=== PATIENT | female | born 1965 | race American Indian/Alaskan Native ===

== ENCOUNTER 2017-05-05 17:57 | Emergency (ER) | payer MEDICAID ==
[~2017-05-05] VITALS: Ht 157.5 cm; Wt 94.0 kg
[~2017-05-05 17:57] MED LIST: CARV3.1289 PO; DIPH-423 PO; DOCU100C40 PO; LISI-600 PO; METF500T PO; SYRI-641
[2017-05-05] MEDS ORDERED: normal saline 1000ml 1,000 ML IV ONE (18:40)
[2017-05-05] MEDS ORDERED: insulin regular, human 10 units/0.1 ml syringe SQ ONE (18:40)
[2017-05-05] MEDS ORDERED: ondansetron/PF 4mg/2ml inj IV ONE (18:45)
[2017-05-05 19:04] LABS: BASOPHILS # (AUTO) 0.1 X10'3 (0-0.2); BASOPHILS % (AUTO) 0.5 % (0-1); EOSINOPHILS # (AUTO) 0.3 X10'3 (0-0.9); EOSINOPHILS % (AUTO) 2.3 % (0-6); HEMATOCRIT 45.4 % (35.0-45.0); HEMOGLOBIN 14.8 g/dl (12.0-16.0); LYMPHOCYTES # (AUTO) 2.5 X10'3 (1.1-4.8); MEAN CORPUSCULAR HEMOGLOBIN 26.8 PG (27.0-31.0); MEAN CORPUSCULAR HGB CONC 32.5 % (33.0-36.5); MEAN CORPUSCULAR VOLUME 82.6 FL (78-98); MEAN PLATELET VOLUME 8.9 FL (7.4-10.4); MONOCYTES # (AUTO) 0.6 X10'3 (0-0.9); NEUTROPHILS # (AUTO) 8.5 X10'3 (1.8-7.7); NEUTROPHILS % (AUTO) 71.2 % (42-75); PLATELET COUNT 301 X10'3 (140-440); RED CELL DISTRIBUTION WIDTH 13.6 % (11.5-14.5); WHITE BLOOD COUNT 11.9 X10'3 (4.5-11.0)
[2017-05-05 19:27] LABS: ALANINE AMINOTRANSFERASE 37 U/L (12-78); ALBUMIN 2.8 G/DL (3.4-5.0); ALBUMIN/GLOBULIN RATIO 0.5 (1.1-1.5); ALKALINE PHOSPHATASE 131 IU/L (46-116); ANION GAP 8 (8-16); ASPARTATE AMINO TRANSFERASE 22 U/L (10-37); BILIRUBIN,TOTAL 0.2 MG/DL (0.1-1.0); BLOOD UREA NITROGEN 21 MG/DL (7-18); CALCIUM 9.1 MG/DL (8.5-10.1); CHLORIDE 101 MMOL/L (99-107); GLUCOSE 400 MG/DL (70-104); LIPASE 113 U/L (73-393); POTASSIUM 3.9 MMOL/L (3.5-5.1); SODIUM 136 MMOL/L (135-145); TOTAL CARBON DIOXIDE 27.3 MMOL/L (24-32); TOTAL PROTEIN 7.9 G/DL (6.4-8.2); TROPONIN I < 0.04 NG/ML (0.0-0.05); eGFR 58 ML/MIN
[2017-05-05] MEDS ORDERED: INSU100V30 SQ ×2 (19:34→19:37)
[2017-05-05] MEDS ORDERED: ibuprofen tablet 400 MG TABLET PO ONE (19:40)
[2017-05-05] MEDS ORDERED: CLIN150C2 PO (20:00)
[2017-05-05 20:03] LABS: COLOR,URINE YELLOW (Yellow); GLUCOSE, URINE >=1000 mg/dl (Neg); KETONES,URINE NEGATIVE (Neg); LEUKOCYTE ESTERASE ,URINE TRACE (Neg); NITRITES, URINE NEGATIVE (Neg); OCCULT BLOOD,URINE LARGE (Neg); PH,URINE 5.5 (4.8-8.0); PROTEIN,URINE 100 mg/dl (Neg); UROBILINOGEN,URINE 0.2 E.U/dL (0.2-1.0)
[2017-05-05 20:04] LABS: UA COLLECTION TYPE CLN CATCH MIDSTREAM
[2017-05-05 20:05] LABS: CLARITY,URINE SLIGHTLY CLOUDY (Clear)
[2017-05-05 20:06] LABS: BACTERIA,URINE FEW /HPF (Neg); SQUAMOUS EPITHELIAL CELL,UR MODERATE /LPF (FEW); WBC,URINE 30-50 /HPF (0-4)
[2017-05-05 20:10] LABS: URINE AMPHETAMINE SCREEN POSITIVE (Neg); URINE BARBITUATE SCREEN NEGATIVE (Neg); URINE BENZODIAZEPINES SCREEN NEGATIVE (Neg); URINE CANNABINOID SCREEN NEGATIVE (Neg); URINE COCAINE SCREEN NEGATIVE (Neg); URINE METHADONE SCREEN NEGATIVE (Neg); URINE OPIATE SCREEN NEGATIVE (Neg); URINE PHENCYCLIDINE SCREEN NEGATIVE (Neg)
[2017-05-05 20:21] VITALS: BP 162/63
== END 2017-05-05 20:24 | disposition home or self-care (01) ==
LOC: ER 17:57
DX: E10.65 Type 1 diabetes mellitus with hyperglycemia (principal); Z79.4 Long term (current) use of insulin; L03.116 Cellulitis of left lower limb; Z59.0 Homelessness; F15.10 Other stimulant abuse, uncomplicated; G89.29 Other chronic pain; F32.9 Major depressive disorder, single episode, unspecified; Z88.2 Allergy status to sulfonamides
CPT/HCPCS: 36415; 71045; 80053; 80305; 81001; 83690; 84484; 85025; 87088; 93005; 96361; 96372; 96374; 99285; J1815; J2405

== ENCOUNTER 2017-06-03 16:23 | Emergency (ER) | payer MEDICAID ==
[~2017-06-03] VITALS: Ht 157.5 cm; Wt 89.6 kg
[~2017-06-03 16:23] MED LIST changes: +CLIN150C2 PO; +INSU100V30 SQ
[2017-06-03 16:28] VITALS: BP 145/65
[2017-06-03 17:11] LABS: CLARITY,URINE CLEAR (Clear); COLOR,URINE YELLOW (Yellow); GLUCOSE, URINE >=1000 mg/dl (Neg); KETONES,URINE NEGATIVE (Neg); LEUKOCYTE ESTERASE ,URINE NEGATIVE (Neg); NITRITES, URINE NEGATIVE (Neg); OCCULT BLOOD,URINE MODERATE (Neg); PH,URINE 5.5 (4.8-8.0); PROTEIN,URINE 100 mg/dl (Neg); UROBILINOGEN,URINE 0.2 E.U/dL (0.2-1.0)
[2017-06-03 17:12] LABS: UA COLLECTION TYPE CLN CATCH MIDSTREAM
[2017-06-03 17:20] LABS: BACTERIA,URINE 1+ /HPF (Neg); RBC,URINE 0-2 /HPF (0-2); SQUAMOUS EPITHELIAL CELL,UR MODERATE /LPF (FEW); WBC,URINE 30-50 /HPF (0-4)
[2017-06-03] MEDS ORDERED: NITR100C6 PO (17:54)
[2017-06-03] MEDS ORDERED: fluconazole 100mg tablet PO ONE (17:55)
== END 2017-06-03 18:14 | disposition home or self-care (01) ==
LOC: ER 16:24
DX: N39.0 Urinary tract infection, site not specified (principal); B37.3 Candidiasis of vulva and vagina; G89.29 Other chronic pain; J45.909 Unspecified asthma, uncomplicated; E11.9 Type 2 diabetes mellitus without complications; M19.90 Unspecified osteoarthritis, unspecified site; F15.10 Other stimulant abuse, uncomplicated; Z59.0 Homelessness; Z88.8 Allergy status to other drugs, medicaments and biological substances; Z88.2 Allergy status to sulfonamides; Z79.4 Long term (current) use of insulin; Z79.84 Long term (current) use of oral hypoglycemic drugs; Z79.899 Other long term (current) drug therapy
CPT/HCPCS: 81001; 87088; 99284

== ENCOUNTER → 2017-08-02 | Outpatient (CLI) | payer MEDICAID ==
[~2017-08-02] MED LIST changes: -CLIN150C2 PO; +NITR100C6 PO
== END ==
LOC: VAS 08:54
PROVIDERS: ATTEND Physician Assistant Medical
DX: M79.651 Pain in right thigh (principal)
CPT/HCPCS: 93971

== ENCOUNTER 2017-10-02 17:05 | Inpatient (IN) | payer MEDICAID ==
[~2017-10-02] VITALS: Ht 157.5 cm; Wt 84.0 kg
[2017-10-02] MEDS: ringers solution, lacted 1,000 ML IV SCH (01:45)
[~2017-10-02 17:05] MED LIST changes: +ONDA8TAB13 PO; +PANT-47 PO
[2017-10-02 17:34] LABS: BASOPHILS % (AUTO) 0 % (0-1); EOSINOPHILS # (AUTO) 0.1 X10'3 (0-0.9); EOSINOPHILS % (AUTO) 0.6 % (0-6); HEMATOCRIT 47.9 % (35.0-45.0); HEMOGLOBIN 15.7 g/dl (12.0-16.0); LYMPHOCYTES # (AUTO) 1.8 X10'3 (1.1-4.8); LYMPHOCYTES % (AUTO) 11.4 % (21-51); MEAN CORPUSCULAR HEMOGLOBIN 26.6 PG (27.0-31.0); MEAN CORPUSCULAR HGB CONC 32.8 % (33.0-36.5); MEAN CORPUSCULAR VOLUME 81.2 FL (78-98); MEAN PLATELET VOLUME 8.8 FL (7.4-10.4); MONOCYTES # (AUTO) 0.6 X10'3 (0-0.9); NEUTROPHILS # (AUTO) 13.5 X10'3 (1.8-7.7); PLATELET COUNT 370 X10'3 (140-440); RED CELL DISTRIBUTION WIDTH 14.9 % (11.5-14.5); WHITE BLOOD COUNT 16.1 X10'3 (4.5-11.0)
[2017-10-02 17:40] LABS: PROTHROMBIN TIME 10.1 SECONDS (9.0-12.0)
[2017-10-02 17:46] LABS: ALANINE AMINOTRANSFERASE 18 U/L (12-78); ALBUMIN 2.8 G/DL (3.4-5.0); ALBUMIN/GLOBULIN RATIO 0.5 (1.1-1.5); ALKALINE PHOSPHATASE 104 IU/L (46-116); ANION GAP 9 (8-16); ASPARTATE AMINO TRANSFERASE 13 U/L (10-37); BILIRUBIN,TOTAL 0.4 MG/DL (0.1-1.0); BLOOD UREA NITROGEN 28 MG/DL (7-18); BUN/CREATININE RATIO 25.2 (6.6-38.0); CALCIUM 8.6 MG/DL (8.5-10.1); CHLORIDE 101 MMOL/L (99-107); CREATININE 1.11 MG/DL (0.40-0.90); GLUCOSE 310 MG/DL (70-104); POTASSIUM 4.1 MMOL/L (3.5-5.1); SODIUM 136 MMOL/L (135-145); TOTAL CARBON DIOXIDE 25.9 MMOL/L (24-32); TOTAL PROTEIN 7.9 G/DL (6.4-8.2); eGFR 51 ML/MIN
[2017-10-02] MEDS ORDERED: MORPHINE 2MG in 2ml NS syringe IV PRN (19:35)
[2017-10-02] MEDS ORDERED: ondansetron/PF 4mg/2ml inj IV ONE (19:35)
[2017-10-02] MEDS ORDERED: morphine 4 MG/ML inj SYRINge IV PRN ×3 (19:35→21:45)
[2017-10-02] MEDS ORDERED: normal saline 1000ML IV soln IVB ONE (19:35)
[2017-10-02 20:17] LABS: CLARITY,URINE CLEAR (Clear); COLOR,URINE YELLOW (Yellow); GLUCOSE, URINE 250 mg/dl (Neg); KETONES,URINE TRACE mg/dl (Neg); LEUKOCYTE ESTERASE ,URINE NEGATIVE (Neg); NITRITES, URINE NEGATIVE (Neg); OCCULT BLOOD,URINE NEGATIVE (Neg); PH,URINE 5.5 (4.8-8.0); PROTEIN,URINE >=300 mg/dl (Neg)
[2017-10-02 20:20] LABS: UA COLLECTION TYPE STRAIGHT CATH
[2017-10-02 20:26] LABS: BACTERIA,URINE 2+ /HPF (Neg); MUCUS STRANDS MODERATE /LPF (Neg); RBC,URINE 0-2 /HPF (0-2); SQUAMOUS EPITHELIAL CELL,UR NONE SEEN /LPF (FEW)
[2017-10-02 20:27] LABS: AMORPHOUS URATES 2+; FINE GRANULAR CAST 0-3 /LPF (NEGATIVE); HYALINE CASTS 0-3 /LPF (NEGATIVE)
[2017-10-02] MEDS ORDERED: PANT40TA4 PO (21:09)
[2017-10-02] MEDS ORDERED: piperacillin/tazo 3.375gm/50ml 50 ML IV ONE (21:15)
[2017-10-02] MEDS ORDERED: normal saline 1000ml 1,000 ML IV SCH (21:22)
[2017-10-02] MEDS ORDERED: MESSAGE TO PHARMACY PO ONE (21:25)
[2017-10-02] MEDS ORDERED: dextrose ORAL solution 15 GM/59 ML bottle PO PRN ×2 (21:25)
[2017-10-02] MEDS ORDERED: ondansetron/PF 4mg/2ml inj IV PRN ×2 (21:25→21:45)
[2017-10-02] MEDS ORDERED: glucagon, human recombinant 1mg kit SUBCUT PRN (21:25)
[2017-10-02] MEDS ORDERED: dextrose 50%-water 50ml dispensing syringe IV PRN ×2 (21:25)
[2017-10-02] MEDS ORDERED: midazolam 2 mg/2 ml injection ONE (21:34)
[2017-10-02] MEDS ORDERED: fentaNYL/PF 50MCG/1 ML 2ML syringe ONE (21:34)
[2017-10-02] MEDS ORDERED: proCHLORperazine 10 MG/2 ml inj IV PRN (21:45)
[2017-10-02] MEDS ORDERED: meperidine/PF 25mg/ml syringe IV PRN ×3 (21:45)
[2017-10-02] MEDS ORDERED: sevoflurane 250ml liquid IH ONE (21:56)
[2017-10-02] MEDS ORDERED: insulin regular, human vial - multi-dose ONE (22:45)
[2017-10-02] MEDS ORDERED: LIDOcaine 2% (20mg/ml) 5ml vial ONE (22:49)
[2017-10-02] MEDS ORDERED: ondansetron/PF 4mg/2ml inj ONE (22:49)
[2017-10-02] MEDS ORDERED: succinylcholine 20mg/ml inj IV ONE (22:49)
[2017-10-02] MEDS ORDERED: propofol inj 20 ML IV ONE (22:49)
[2017-10-02] MEDS ORDERED: rocuronium 10mg/ml inj IV ONE (22:49)
[2017-10-02] MEDS ORDERED: neostigmine methylsulfate 1 MG/ML 10ml vial ONE (23:19)
[2017-10-02] MEDS ORDERED: glycopyrrolate 0.2mg/ml inj ONE (23:19)
[2017-10-02] MEDS ORDERED: labetalol 5mg/ml 20ml inj. IV ONE (23:22)
[2017-10-02 23:27] VITALS: BP 146/81
[2017-10-02 23:37] VITALS: BP 166/98
[2017-10-02 23:47] VITALS: BP 178/104
[2017-10-02] MEDS ORDERED: labetalol 20mg/4ml (5mg/ml) syringe IV ONE (23:50)
[2017-10-02 23:57] VITALS: BP 173/104
[2017-10-03] VITALS (17 sets, daily range): BP systolic 125–172; BP diastolic 68–95
[2017-10-03] MEDS: ringers solution, lacted 1,000 ML IV SCH ×5 (00:54→23:49)
[2017-10-03] MEDS ORDERED: piperacillin-tazo 2.25gm/50ml 50 ML IV ONE (02:01)
[2017-10-03] MEDS: piperacillin-tazo 2.25gm/50ml 50 ML IV SCH ×4 (02:07→23:46)
[2017-10-03] MEDS: morphine 4 MG/ML inj SYRINge IV PRN ×6 (04:00→21:49)
[2017-10-03 05:44] LABS: BASOPHILS % (AUTO) 0.2 % (0-1); EOSINOPHILS # (AUTO) 0.1 X10'3 (0-0.9); EOSINOPHILS % (AUTO) 0.9 % (0-6); HEMATOCRIT 40.5 % (35.0-45.0); HEMOGLOBIN 13.3 g/dl (12.0-16.0); LYMPHOCYTES # (AUTO) 1.4 X10'3 (1.1-4.8); LYMPHOCYTES % (AUTO) 10.7 % (21-51); MEAN CORPUSCULAR HEMOGLOBIN 26.7 PG (27.0-31.0); MEAN CORPUSCULAR HGB CONC 32.8 % (33.0-36.5); MEAN CORPUSCULAR VOLUME 81.3 FL (78-98); MEAN PLATELET VOLUME 9.1 FL (7.4-10.4); MONOCYTES # (AUTO) 0.8 X10'3 (0-0.9); MONOCYTES % (AUTO) 6.5 % (2-12); NEUTROPHILS # (AUTO) 10.6 X10'3 (1.8-7.7); NEUTROPHILS % (AUTO) 81.7 % (42-75); PLATELET COUNT 268 X10'3 (140-440); RED BLOOD COUNT 4.98 X10'6 (4.20-5.60); RED CELL DISTRIBUTION WIDTH 15.2 % (11.5-14.5)
[2017-10-03 06:22] LABS: ALANINE AMINOTRANSFERASE 16 U/L (12-78); ALBUMIN 2.1 G/DL (3.4-5.0); ALBUMIN/GLOBULIN RATIO 0.5 (1.1-1.5); ALKALINE PHOSPHATASE 79 IU/L (46-116); ANION GAP 7 (8-16); ASPARTATE AMINO TRANSFERASE 11 U/L (10-37); BILIRUBIN,TOTAL 0.4 MG/DL (0.1-1.0); BLOOD UREA NITROGEN 20 MG/DL (7-18); BUN/CREATININE RATIO 25.3 (6.6-38.0); CALCIUM 7.4 MG/DL (8.5-10.1); CHLORIDE 107 MMOL/L (99-107); CREATININE 0.79 MG/DL (0.40-0.90); GLUCOSE 244 MG/DL (70-104); SODIUM 139 MMOL/L (135-145); TOTAL CARBON DIOXIDE 24.6 MMOL/L (24-32); eGFR 76 ML/MIN
[2017-10-03] MEDS: pantoprazole 40 MG vial IV SCH (07:50)
[2017-10-03] MEDS: heparin, porcine 5000 units/ml vial SQ SCH ×2 (07:52→19:42)
[2017-10-03] MEDS: insulin Lispro (HumaLOG) vial - multi-dose SQ SCH ×3 (08:07→19:45)
[2017-10-03] MEDS ORDERED: INSU100I31 (08:59)
[2017-10-03] MEDS: lactobacillus rhamnosus 10,000 MMU CELLS/CAPSULE PO SCH (19:57)
[2017-10-03] MEDS: insulin glargine (Lantus) pen - multi-dose SQ SCH (21:53)
[2017-10-03] MEDS ORDERED: sevoflurane 250ml liquid IH ONE (21:56)
[2017-10-04 00:10] VITALS: BP 142/75
[2017-10-04] MEDS: morphine 4 MG/ML inj SYRINge IV PRN ×4 (01:44→19:02)
[2017-10-04 04:53] LABS: BASOPHILS # (AUTO) 0.1 X10'3 (0-0.2); BASOPHILS % (AUTO) 0.8 % (0-1); EOSINOPHILS # (AUTO) 0.2 X10'3 (0-0.9); EOSINOPHILS % (AUTO) 1.7 % (0-6); HEMOGLOBIN 12.5 g/dl (12.0-16.0); LYMPHOCYTES # (AUTO) 1.6 X10'3 (1.1-4.8); LYMPHOCYTES % (AUTO) 13.6 % (21-51); MEAN CORPUSCULAR HGB CONC 32.8 % (33.0-36.5); MEAN CORPUSCULAR VOLUME 82.4 FL (78-98); MEAN PLATELET VOLUME 9.2 FL (7.4-10.4); MONOCYTES % (AUTO) 8.8 % (2-12); NEUTROPHILS # (AUTO) 8.7 X10'3 (1.8-7.7); NEUTROPHILS % (AUTO) 75.1 % (42-75); PLATELET COUNT 262 X10'3 (140-440); RED BLOOD COUNT 4.61 X10'6 (4.20-5.60); RED CELL DISTRIBUTION WIDTH 14.4 % (11.5-14.5); WHITE BLOOD COUNT 11.6 X10'3 (4.5-11.0)
[2017-10-04 05:20] LABS: ALANINE AMINOTRANSFERASE 10 U/L (12-78); ALBUMIN 1.9 G/DL (3.4-5.0); ALBUMIN/GLOBULIN RATIO 0.5 (1.1-1.5); ALKALINE PHOSPHATASE 78 IU/L (46-116); ANION GAP 7 (8-16); ASPARTATE AMINO TRANSFERASE 14 U/L (10-37); BILIRUBIN,TOTAL 0.5 MG/DL (0.1-1.0); BLOOD UREA NITROGEN 11 MG/DL (7-18); BUN/CREATININE RATIO 13.9 (6.6-38.0); CALCIUM 7.8 MG/DL (8.5-10.1); CHLORIDE 105 MMOL/L (99-107); CREATININE 0.79 MG/DL (0.40-0.90); GLUCOSE 177 MG/DL (70-104); POTASSIUM 3.7 MMOL/L (3.5-5.1); SODIUM 138 MMOL/L (135-145); TOTAL PROTEIN 6.1 G/DL (6.4-8.2); eGFR 76 ML/MIN
[2017-10-04] MEDS: lactobacillus rhamnosus 10,000 MMU CELLS/CAPSULE PO SCH ×2 (07:18→19:18)
[2017-10-04] MEDS: heparin, porcine 5000 units/ml vial SQ SCH ×2 (07:18→19:18)
[2017-10-04] MEDS: piperacillin-tazo 2.25gm/50ml 50 ML IV SCH ×2 (07:18→15:23)
[2017-10-04] MEDS: pantoprazole 40 MG vial IV SCH (07:18)
[2017-10-04] MEDS: ringers solution, lacted 1,000 ML IV SCH ×4 (07:18→23:09)
[2017-10-04 07:26] VITALS: BP 137/77
[2017-10-04] MEDS: insulin Lispro (HumaLOG) vial - multi-dose SQ SCH ×3 (09:07→19:17)
[2017-10-04 11:00] VITALS: BP 137/78
[2017-10-04] MEDS ORDERED: HYDROcodone/acetaminophen 10/325mg tab PO PRN (12:45)
[2017-10-04 20:00] VITALS: BP 150/79
[2017-10-04] MEDS: insulin glargine (Lantus) pen - multi-dose SQ SCH (21:29)
[2017-10-05] VITALS: BP 157/83
[2017-10-05] MEDS: piperacillin-tazo 2.25gm/50ml 50 ML IV SCH ×2 (00:06→07:33)
[2017-10-05 06:05] LABS: BASOPHILS % (AUTO) 0.3 % (0-1); EOSINOPHILS # (AUTO) 0.4 X10'3 (0-0.9); HEMOGLOBIN 11.8 g/dl (12.0-16.0); LYMPHOCYTES # (AUTO) 1.9 X10'3 (1.1-4.8); LYMPHOCYTES % (AUTO) 15.9 % (21-51); MEAN CORPUSCULAR HGB CONC 32.9 % (33.0-36.5); MEAN PLATELET VOLUME 8.7 FL (7.4-10.4); MONOCYTES # (AUTO) 0.9 X10'3 (0-0.9); MONOCYTES % (AUTO) 7.9 % (2-12); NEUTROPHILS # (AUTO) 8.7 X10'3 (1.8-7.7); NEUTROPHILS % (AUTO) 72.9 % (42-75); PLATELET COUNT 245 X10'3 (140-440); RED BLOOD COUNT 4.39 X10'6 (4.20-5.60); RED CELL DISTRIBUTION WIDTH 15.3 % (11.5-14.5); WHITE BLOOD COUNT 11.9 X10'3 (4.5-11.0)
[2017-10-05 06:23] LABS: ALANINE AMINOTRANSFERASE 10 U/L (12-78); ALBUMIN 1.7 G/DL (3.4-5.0); ALBUMIN/GLOBULIN RATIO 0.4 (1.1-1.5); ALKALINE PHOSPHATASE 83 IU/L (46-116); ANION GAP 5 (8-16); ASPARTATE AMINO TRANSFERASE 11 U/L (10-37); BILIRUBIN,TOTAL 0.4 MG/DL (0.1-1.0); BLOOD UREA NITROGEN 10 MG/DL (7-18); BUN/CREATININE RATIO 14.1 (6.6-38.0); CALCIUM 8.1 MG/DL (8.5-10.1); CHLORIDE 102 MMOL/L (99-107); CREATININE 0.71 MG/DL (0.40-0.90); GLUCOSE 172 MG/DL (70-104); POTASSIUM 3.4 MMOL/L (3.5-5.1); SODIUM 135 MMOL/L (135-145); TOTAL CARBON DIOXIDE 27.9 MMOL/L (24-32); TOTAL PROTEIN 6.2 G/DL (6.4-8.2); eGFR 86 ML/MIN
[2017-10-05] MEDS: ringers solution, lacted 1,000 ML IV SCH (06:30)
[2017-10-05] MEDS ORDERED: pantoprazole 40mg Tablet.DR PO SCH (07:30)
[2017-10-05] MEDS: lactobacillus rhamnosus 10,000 MMU CELLS/CAPSULE PO SCH (07:33)
[2017-10-05] MEDS: heparin, porcine 5000 units/ml vial SQ SCH (07:34)
[2017-10-05 08:00] VITALS: BP 161/86
[2017-10-05] MEDS: insulin Lispro (HumaLOG) vial - multi-dose SQ SCH ×2 (09:03→13:18)
[2017-10-05 12:00] VITALS: BP 168/93
[2017-10-05] MEDS ORDERED: CEPH250T PO (13:10)
[2017-10-05] MEDS ORDERED: METF500T6 PO (13:12)
[2017-10-05] MEDS ORDERED: GLIP5TAB13 PO (13:12)
[2017-10-05] MEDS ORDERED: LEVO500T2 PO (17:45)
== END 2017-10-05 15:05 | disposition home or self-care (01) | DRG 227 ==
LOC: ER 17:05 → ED HOLD 21:22 → SUR 3N 23:04
PROVIDERS: ADMIT Internal Medicine; ATTEND Internal Medicine
PROC: 0DNW0ZZ Release Peritoneum, Open Approach (ICD-10-PCS; 2017-10-02)
PROC: 0WQF0ZZ Repair Abdominal Wall, Open Approach (ICD-10-PCS; principal; 2017-10-02 21:56)
DX: K43.6 Other and unspecified ventral hernia with obstruction, without gangrene (principal); E11.65 Type 2 diabetes mellitus with hyperglycemia; G47.30 Sleep apnea, unspecified; J45.909 Unspecified asthma, uncomplicated; K21.9 Gastro-esophageal reflux disease without esophagitis; K66.0 Peritoneal adhesions (postprocedural) (postinfection); E66.01 Morbid (severe) obesity due to excess calories; F15.90 Other stimulant use, unspecified, uncomplicated; F32.9 Major depressive disorder, single episode, unspecified; R91.8 Other nonspecific abnormal finding of lung field; G89.29 Other chronic pain; M54.9 Dorsalgia, unspecified; M19.90 Unspecified osteoarthritis, unspecified site; Z59.0 Homelessness; Z80.3 Family history of malignant neoplasm of breast; Z68.33 Body mass index [BMI] 33.0-33.9, adult; Z88.1 Allergy status to other antibiotic agents; Z88.2 Allergy status to sulfonamides; Z88.8 Allergy status to other drugs, medicaments and biological substances; Z98.51 Tubal ligation status
CPT/HCPCS: 36415; 71045; 71046; 74176; 80053; 81001; 82948; 83036; 85025; 85610; 87070; 87088; 93005; 96361; 96374; 96375; 97110; 97116; 97162; 97530; 99285; A7000; C1758; C9113; J0330; J1644; J1815; J2001; J2175; J2250; J2270; J2405; J2543; J2704; J2710; J3010; J3490; J7030; J7120

== ENCOUNTER 2017-10-08 13:57 | Inpatient (IN) | payer MEDICAID ==
[~2017-10-08] VITALS: Ht 157.5 cm; Wt 85.0 kg
[~2017-10-08 13:57] MED LIST changes: -CARV3.1289 PO; -DIPH-423 PO; -DOCU100C40 PO; +GLIP5TAB13 PO; -INSU100V30 SQ; +LEVO500T2 PO; -LISI-600 PO; -METF500T PO; +METF500T6 PO; -NITR100C6 PO; -ONDA8TAB13 PO; -PANT-47 PO; +PANT40TA4 PO; -SYRI-641
[2017-10-08] MEDS ORDERED: normal saline 1000ML IV soln IVB ONE (17:05)
[2017-10-08] MEDS ORDERED: ondansetron/PF 4mg/2ml inj IV ONE (17:05)
[2017-10-08] MEDS ORDERED: MORPHINE 2MG in 2ml NS syringe IV PRN (17:05)
[2017-10-08 18:06] LABS: BASOPHILS % (AUTO) 0.3 % (0-1); EOSINOPHILS # (AUTO) 0.4 X10'3 (0-0.9); EOSINOPHILS % (AUTO) 4.2 % (0-6); HEMATOCRIT 34.1 % (35.0-45.0); HEMOGLOBIN 11.3 g/dl (12.0-16.0); LYMPHOCYTES # (AUTO) 2.1 X10'3 (1.1-4.8); LYMPHOCYTES % (AUTO) 20.4 % (21-51); MEAN CORPUSCULAR HEMOGLOBIN 27.2 PG (27.0-31.0); MEAN CORPUSCULAR HGB CONC 33.1 % (33.0-36.5); MEAN PLATELET VOLUME 8.1 FL (7.4-10.4); MONOCYTES # (AUTO) 0.5 X10'3 (0-0.9); MONOCYTES % (AUTO) 5.2 % (2-12); NEUTROPHILS # (AUTO) 7.2 X10'3 (1.8-7.7); NEUTROPHILS % (AUTO) 69.9 % (42-75); PLATELET COUNT 327 X10'3 (140-440); RED BLOOD COUNT 4.16 X10'6 (4.20-5.60); RED CELL DISTRIBUTION WIDTH 15.1 % (11.5-14.5); WHITE BLOOD COUNT 10.3 X10'3 (4.5-11.0)
[2017-10-08 18:14] LABS: ALANINE AMINOTRANSFERASE 21 U/L (12-78); ALBUMIN 2.1 G/DL (3.4-5.0); ALBUMIN/GLOBULIN RATIO 0.5 (1.1-1.5); ALKALINE PHOSPHATASE 98 IU/L (46-116); ANION GAP 6 (8-16); ASPARTATE AMINO TRANSFERASE 16 U/L (10-37); BILIRUBIN,TOTAL 0.2 MG/DL (0.1-1.0); BLOOD UREA NITROGEN 12 MG/DL (7-18); BUN/CREATININE RATIO 17.9 (6.6-38.0); CALCIUM 8.7 MG/DL (8.5-10.1); CHLORIDE 106 MMOL/L (99-107); CREATININE 0.67 MG/DL (0.40-0.90); GLUCOSE 164 MG/DL (70-104); POTASSIUM 3.5 MMOL/L (3.5-5.1); SODIUM 142 MMOL/L (135-145); TOTAL CARBON DIOXIDE 29.7 MMOL/L (24-32); TOTAL PROTEIN 6.6 G/DL (6.4-8.2); eGFR > 90 ML/MIN
[2017-10-08] MEDS ORDERED: iohexol 300mg/ml 100ml inj. ONE (18:33)
[2017-10-08] MEDS ORDERED: LEVO500T2 PO (21:28)
[2017-10-08] MEDS ORDERED: METF500T PO (21:28)
[2017-10-08] MEDS ORDERED: GLIP5TAB13 PO (21:28)
[2017-10-09] MEDS ORDERED: mag hydrox/Alum hydrox/simeth 30ml oral suspension PO PRN (00:20)
[2017-10-09] MEDS ORDERED: ondansetron/PF 4mg/2ml inj IV PRN (00:20)
[2017-10-09] MEDS ORDERED: magnesium hydroxide 30ml (MOM) UD suspension PO PRN (00:20)
[2017-10-09] MEDS ORDERED: morphine 4 MG/ML inj SYRINge IV PRN (00:20)
[2017-10-09] MEDS ORDERED: acetaminophen 325mg tablet PO PRN (00:20)
[2017-10-09 01:05] VITALS: BP 164/81
[2017-10-09] MEDS: normal saline 1000ml 1,000 ML IV SCH ×3 (01:08→22:26)
[2017-10-09] MEDS: levoFLOXACIN 500mg tablet PO SCH ×2 (01:08→21:56)
[2017-10-09] MEDS: morphine 4 MG/ML inj SYRINge IV PRN ×2 (01:21→19:04)
[2017-10-09] MEDS ORDERED: HYDROcodone/acetaminophen 5mg/325mg tablet PO PRN (02:55)
[2017-10-09] MEDS: HYDROcodone/acetaminophen 10/325mg tab PO PRN ×3 (03:02→14:15)
[2017-10-09] MEDS ORDERED: pneumococcal 23-VAL P-sac vacc 25 mcg/0.5ml vial IMVAC ONE (06:10)
[2017-10-09] MEDS: pantoprazole 40mg Tablet.DR PO SCH (07:18)
[2017-10-09 08:00] VITALS: BP 149/90
[2017-10-09] MEDS: lisinopril 20mg tablet PO SCH (11:18)
[2017-10-09 11:48] VITALS: BP 175/92
[2017-10-09 19:00] VITALS: BP 160/92
[2017-10-09] MEDS ORDERED: insulin Lispro (HumaLOG) vial - multi-dose SQ SCH (19:30)
[2017-10-09] MEDS ORDERED: dextrose 50%-water 50ml dispensing syringe IV PRN ×2 (19:30)
[2017-10-09] MEDS ORDERED: MESSAGE TO PHARMACY PO ONE (19:30)
[2017-10-09] MEDS ORDERED: dextrose ORAL solution 15 GM/59 ML bottle PO PRN ×2 (19:30)
[2017-10-09] MEDS ORDERED: glucagon, human recombinant 1mg kit SUBCUT PRN (19:30)
[2017-10-09] MEDS: lactobacillus rhamnosus 10,000 MMU CELLS/CAPSULE PO SCH (19:37)
[2017-10-09 20:00] VITALS: BP_SYST 149
[2017-10-09] MEDS ORDERED: insulin glargine (Lantus) pen - multi-dose SQ SCH (21:00)
[2017-10-10] VITALS: BP 152/73
[2017-10-10] MEDS: normal saline 1000ml 1,000 ML IV SCH ×2 (05:31→14:26)
[2017-10-10 07:06] LABS: ALANINE AMINOTRANSFERASE 22 U/L (12-78); ALBUMIN 2.1 G/DL (3.4-5.0); ALBUMIN/GLOBULIN RATIO 0.4 (1.1-1.5); ALKALINE PHOSPHATASE 101 IU/L (46-116); ANION GAP 9 (8-16); BILIRUBIN,TOTAL 0.2 MG/DL (0.1-1.0); BLOOD UREA NITROGEN 10 MG/DL (7-18); BUN/CREATININE RATIO 16.9 (6.6-38.0); CALCIUM 8.5 MG/DL (8.5-10.1); CHLORIDE 102 MMOL/L (99-107); CREATININE 0.59 MG/DL (0.40-0.90); GLUCOSE 167 MG/DL (70-104); SODIUM 137 MMOL/L (135-145); TOTAL PROTEIN 6.9 G/DL (6.4-8.2); eGFR > 90 ML/MIN
[2017-10-10 07:09] LABS: ASPARTATE AMINO TRANSFERASE 26 U/L (10-37); POTASSIUM 4.4 MMOL/L (3.5-5.1)
[2017-10-10] MEDS: lactobacillus rhamnosus 10,000 MMU CELLS/CAPSULE PO SCH (09:04)
[2017-10-10] MEDS: pantoprazole 40mg Tablet.DR PO SCH (09:04)
[2017-10-10] MEDS: lisinopril 20mg tablet PO SCH (09:04)
[2017-10-10 09:26] LABS: BASOPHILS % (AUTO) 0.2 % (0-1); EOSINOPHILS # (AUTO) 0.4 X10'3 (0-0.9); EOSINOPHILS % (AUTO) 4.5 % (0-6); HEMATOCRIT 35.2 % (35.0-45.0); HEMOGLOBIN 11.6 g/dl (12.0-16.0); LYMPHOCYTES # (AUTO) 1.5 X10'3 (1.1-4.8); LYMPHOCYTES % (AUTO) 15.3 % (21-51); MEAN CORPUSCULAR HEMOGLOBIN 26.9 PG (27.0-31.0); MEAN CORPUSCULAR HGB CONC 32.9 % (33.0-36.5); MEAN CORPUSCULAR VOLUME 81.7 FL (78-98); MEAN PLATELET VOLUME 8.4 FL (7.4-10.4); MONOCYTES # (AUTO) 0.5 X10'3 (0-0.9); MONOCYTES % (AUTO) 5.5 % (2-12); NEUTROPHILS # (AUTO) 7.2 X10'3 (1.8-7.7); NEUTROPHILS % (AUTO) 74.5 % (42-75); PLATELET COUNT 295 X10'3 (140-440); RED BLOOD COUNT 4.31 X10'6 (4.20-5.60); RED CELL DISTRIBUTION WIDTH 14.8 % (11.5-14.5); WHITE BLOOD COUNT 9.6 X10'3 (4.5-11.0)
[2017-10-10] MEDS: HYDROcodone/acetaminophen 10/325mg tab PO PRN ×2 (11:37→18:22)
== END 2017-10-10 19:20 | disposition home or self-care (01) | DRG 48 ==
LOC: ER 13:58 → ED HOLD 10-09 00:18 → SUR 3N 10-09 01:02
PROVIDERS: ADMIT Internal Medicine; ATTEND Family Medicine
PROC: BW211ZZ Computerized Tomography (CT Scan) of Abdomen and Pelvis using Low Osmolar Contrast (ICD-10-PCS; principal; 2017-10-08)
DX: G90.4 Autonomic dysreflexia (principal); E43 Unspecified severe protein-calorie malnutrition; I95.9 Hypotension, unspecified; T81.31XA Disruption of external operation (surgical) wound, not elsewhere classified, initial encounter; E86.0 Dehydration; E11.65 Type 2 diabetes mellitus with hyperglycemia; G47.30 Sleep apnea, unspecified; I10 Essential (primary) hypertension; J45.909 Unspecified asthma, uncomplicated; K21.9 Gastro-esophageal reflux disease without esophagitis; F15.90 Other stimulant use, unspecified, uncomplicated; F32.9 Major depressive disorder, single episode, unspecified; G89.29 Other chronic pain; M54.9 Dorsalgia, unspecified; M19.90 Unspecified osteoarthritis, unspecified site; W01.0XXA Fall on same level from slipping, tripping and stumbling without subsequent striking against object, initial encounter; Z80.3 Family history of malignant neoplasm of breast; Z90.49 Acquired absence of other specified parts of digestive tract; Z59.0 Homelessness; Z68.34 Body mass index [BMI] 34.0-34.9, adult; Z23 Encounter for immunization; Y93.89 Activity, other specified; Y92.89 Other specified places as the place of occurrence of the external cause; Y99.8 Other external cause status; Z88.1 Allergy status to other antibiotic agents; Z88.2 Allergy status to sulfonamides; Z88.8 Allergy status to other drugs, medicaments and biological substances
CPT/HCPCS: 36415; 74177; 80053; 82948; 85025; 87070; 87075; 87077; 87186; 90732; 96361; 96374; 96375; 97116; 97161; 97530; 99285; J1815; J2270; J2274; J2405; J7030; Q9967

== ENCOUNTER 2017-10-24 08:35 | Day surgery (SDC) | payer MEDICAID ==
[~2017-10-24 08:35] MED LIST changes: -LEVO500T2 PO; +METF500T PO; -METF500T6 PO
[2017-10-24] MEDS ORDERED: LIDOcaine 2% 5ml jelly ONE (09:27)
[2017-10-24] MEDS ORDERED: CEPH-572 PO (13:54)
== END 2017-10-24 10:47 | disposition home or self-care (01) ==
LOC: WOUND CARE 08:35
PROVIDERS: ATTEND Surgery
DX: T81.89XD Other complications of procedures, not elsewhere classified, subsequent encounter (principal); L98.492 Non-pressure chronic ulcer of skin of other sites with fat layer exposed; J44.9 Chronic obstructive pulmonary disease, unspecified; K21.9 Gastro-esophageal reflux disease without esophagitis; E87.6 Hypokalemia; E66.01 Morbid (severe) obesity due to excess calories; G47.30 Sleep apnea, unspecified; E11.620 Type 2 diabetes mellitus with diabetic dermatitis; E11.51 Type 2 diabetes mellitus with diabetic peripheral angiopathy without gangrene; M19.90 Unspecified osteoarthritis, unspecified site; I10 Essential (primary) hypertension; E11.65 Type 2 diabetes mellitus with hyperglycemia; F32.9 Major depressive disorder, single episode, unspecified; F19.10 Other psychoactive substance abuse, uncomplicated; F10.10 Alcohol abuse, uncomplicated; F15.10 Other stimulant abuse, uncomplicated; Z68.42 Body mass index [BMI] 45.0-49.9, adult; Z79.4 Long term (current) use of insulin; Z86.14 Personal history of Methicillin resistant Staphylococcus aureus infection; Z87.891 Personal history of nicotine dependence; Z90.49 Acquired absence of other specified parts of digestive tract; Y83.8 Other surgical procedures as the cause of abnormal reaction of the patient, or of later complication, without mention of misadventure at the time of the procedure
CPT/HCPCS: 36416; 82948; 97597; A6021; A6212

== ENCOUNTER 2017-10-31 10:46 | Day surgery (SDC) | payer MEDICAID ==
[~2017-10-31 10:46] MED LIST changes: +CEPH-572 PO
[2017-10-31] MEDS ORDERED: LIDOcaine 2% 5ml jelly ONE (12:09)
== END 2017-10-31 12:27 | disposition home or self-care (01) ==
LOC: WOUND CARE 10:46
PROVIDERS: ATTEND Surgery
DX: T81.89XD Other complications of procedures, not elsewhere classified, subsequent encounter (principal); L98.492 Non-pressure chronic ulcer of skin of other sites with fat layer exposed; E11.620 Type 2 diabetes mellitus with diabetic dermatitis; E11.51 Type 2 diabetes mellitus with diabetic peripheral angiopathy without gangrene; E11.65 Type 2 diabetes mellitus with hyperglycemia; J44.9 Chronic obstructive pulmonary disease, unspecified; K21.9 Gastro-esophageal reflux disease without esophagitis; E87.6 Hypokalemia; E66.01 Morbid (severe) obesity due to excess calories; G47.30 Sleep apnea, unspecified; M19.90 Unspecified osteoarthritis, unspecified site; I10 Essential (primary) hypertension; F32.9 Major depressive disorder, single episode, unspecified; F19.10 Other psychoactive substance abuse, uncomplicated; F10.10 Alcohol abuse, uncomplicated; F15.10 Other stimulant abuse, uncomplicated; Z68.42 Body mass index [BMI] 45.0-49.9, adult; Z79.4 Long term (current) use of insulin; Z86.14 Personal history of Methicillin resistant Staphylococcus aureus infection; Z87.891 Personal history of nicotine dependence; Z90.49 Acquired absence of other specified parts of digestive tract; Y83.8 Other surgical procedures as the cause of abnormal reaction of the patient, or of later complication, without mention of misadventure at the time of the procedure
CPT/HCPCS: 17250; 36416; 82948; A6212; 97597

== ENCOUNTER 2017-11-07 10:42 | Day surgery (SDC) | payer MEDICAID ==
[2017-11-07] MEDS ORDERED: LIDOcaine 2% 5ml jelly ONE (11:11)
== END 2017-11-07 12:21 | disposition home or self-care (01) ==
LOC: WOUND CARE 10:42 → EDSTATUS 11:00 → WOUND CARE 12:21
PROVIDERS: ATTEND Surgery
DX: T81.89XD Other complications of procedures, not elsewhere classified, subsequent encounter (principal); L98.492 Non-pressure chronic ulcer of skin of other sites with fat layer exposed; E11.620 Type 2 diabetes mellitus with diabetic dermatitis; E11.51 Type 2 diabetes mellitus with diabetic peripheral angiopathy without gangrene; E11.65 Type 2 diabetes mellitus with hyperglycemia; J44.9 Chronic obstructive pulmonary disease, unspecified; K21.9 Gastro-esophageal reflux disease without esophagitis; E87.6 Hypokalemia; E66.01 Morbid (severe) obesity due to excess calories; G47.30 Sleep apnea, unspecified; M19.90 Unspecified osteoarthritis, unspecified site; I10 Essential (primary) hypertension; F32.9 Major depressive disorder, single episode, unspecified; F19.10 Other psychoactive substance abuse, uncomplicated; F10.10 Alcohol abuse, uncomplicated; F15.10 Other stimulant abuse, uncomplicated; Z68.42 Body mass index [BMI] 45.0-49.9, adult; Z79.4 Long term (current) use of insulin; Z86.14 Personal history of Methicillin resistant Staphylococcus aureus infection; Z87.891 Personal history of nicotine dependence; Z90.49 Acquired absence of other specified parts of digestive tract; Y83.8 Other surgical procedures as the cause of abnormal reaction of the patient, or of later complication, without mention of misadventure at the time of the procedure
CPT/HCPCS: 17250; 36416; 82948; A6021; A6212

== ENCOUNTER 2017-11-10 12:43 | Emergency (ER) | payer MEDICAID ==
[~2017-11-10] VITALS: Ht 157.5 cm; Wt 86.0 kg
[2017-11-10 13:21] LABS: BASOPHILS # (AUTO) 0.1 X10'3 (0-0.2); BASOPHILS % (AUTO) 0.9 % (0-1); EOSINOPHILS # (AUTO) 0.3 X10'3 (0-0.9); EOSINOPHILS % (AUTO) 2.7 % (0-6); HEMATOCRIT 38.8 % (35.0-45.0); HEMOGLOBIN 12.8 g/dl (12.0-16.0); LYMPHOCYTES # (AUTO) 2.4 X10'3 (1.1-4.8); MEAN CORPUSCULAR HEMOGLOBIN 27.1 PG (27.0-31.0); MEAN CORPUSCULAR VOLUME 82.2 FL (78-98); MEAN PLATELET VOLUME 8.6 FL (7.4-10.4); MONOCYTES # (AUTO) 0.6 X10'3 (0-0.9); MONOCYTES % (AUTO) 6.1 % (2-12); NEUTROPHILS # (AUTO) 6.2 X10'3 (1.8-7.7); NEUTROPHILS % (AUTO) 65.3 % (42-75); PLATELET COUNT 309 X10'3 (140-440); RED BLOOD COUNT 4.72 X10'6 (4.20-5.60); RED CELL DISTRIBUTION WIDTH 14.8 % (11.5-14.5); WHITE BLOOD COUNT 9.5 X10'3 (4.5-11.0)
[2017-11-10 13:32] LABS: PROTHROMBIN TIME 10.4 SECONDS (9.0-12.0)
[2017-11-10 13:38] LABS: ALANINE AMINOTRANSFERASE 23 U/L (12-78); ALBUMIN 2.8 G/DL (3.4-5.0); ALBUMIN/GLOBULIN RATIO 0.6 (1.1-1.5); ALKALINE PHOSPHATASE 97 IU/L (46-116); ANION GAP 4 (8-16); ASPARTATE AMINO TRANSFERASE 12 U/L (10-37); BILIRUBIN,TOTAL 0.2 MG/DL (0.1-1.0); BLOOD UREA NITROGEN 18 MG/DL (7-18); BUN/CREATININE RATIO 20.2 (6.6-38.0); CALCIUM 8.8 MG/DL (8.5-10.1); CHLORIDE 103 MMOL/L (99-107); CREATININE 0.89 MG/DL (0.40-0.90); GLUCOSE 214 MG/DL (70-104); POTASSIUM 4.1 MMOL/L (3.5-5.1); SODIUM 136 MMOL/L (135-145); TOTAL CARBON DIOXIDE 28.6 MMOL/L (24-32); TOTAL PROTEIN 7.2 G/DL (6.4-8.2); eGFR 66 ML/MIN
[2017-11-10] MEDS ORDERED: normal saline 1000ML IV soln IVB ONE (17:05)
[2017-11-10] MEDS ORDERED: morphine 4 MG/ML inj SYRINge IV PRN (17:05)
[2017-11-10] MEDS ORDERED: ondansetron/PF 4mg/2ml inj IV ONE (17:05)
[2017-11-10 17:11] LABS: CLARITY,URINE SLIGHTLY CLOUDY (Clear); COLOR,URINE YELLOW (Yellow); GLUCOSE, URINE NEGATIVE (Neg); KETONES,URINE NEGATIVE (Neg); LEUKOCYTE ESTERASE ,URINE NEGATIVE (Neg); NITRITES, URINE NEGATIVE (Neg); OCCULT BLOOD,URINE SMALL (Neg); PH,URINE 5.5 (4.8-8.0); PROTEIN,URINE 100 mg/dl (Neg); UROBILINOGEN,URINE 0.2 E.U/dL (0.2-1.0)
[2017-11-10] MEDS ORDERED: ondansetron 4mg rapidly disintigrating tab PO ONE (17:25)
[2017-11-10 17:28] LABS: LIPASE 108 U/L (73-393)
[2017-11-10 17:30] LABS: UA COLLECTION TYPE CLN CATCH MIDSTREAM
[2017-11-10 17:40] LABS: BACTERIA,URINE 1+ /HPF (Neg); MUCUS STRANDS NONE SEEN /LPF (Neg); RBC,URINE NONE SEEN /HPF (0-2); SQUAMOUS EPITHELIAL CELL,UR MODERATE /LPF (FEW); WBC,URINE 0-4 /HPF (0-4)
[2017-11-10] MEDS ORDERED: ONDA8TAB6 PO (18:10)
[2017-11-10 18:20] VITALS: BP 140/80
== END 2017-11-10 18:22 | disposition home or self-care (01) ==
LOC: ER 12:43
DX: R10.32 Left lower quadrant pain (principal); R10.31 Right lower quadrant pain; J45.909 Unspecified asthma, uncomplicated; K21.9 Gastro-esophageal reflux disease without esophagitis; E11.9 Type 2 diabetes mellitus without complications; F15.90 Other stimulant use, unspecified, uncomplicated; Z98.51 Tubal ligation status; Z98.890 Other specified postprocedural states; Z59.0 Homelessness; Z88.1 Allergy status to other antibiotic agents; Z88.2 Allergy status to sulfonamides; Z79.899 Other long term (current) drug therapy
CPT/HCPCS: 36415; 80053; 81001; 82948; 83690; 85025; 85610; 99284

== ENCOUNTER 2017-11-21 12:35 | Day surgery (SDC) | payer MEDICAID ==
[~2017-11-21 12:35] MED LIST changes: -CEPH-572 PO; -GLIP5TAB13 PO; -METF500T PO; +ONDA8TAB6 PO; -PANT40TA4 PO
== END 2017-11-21 13:21 | disposition home or self-care (01) ==
LOC: WOUND CARE 12:35
PROVIDERS: ATTEND Surgery
DX: T81.89XD Other complications of procedures, not elsewhere classified, subsequent encounter (principal); L98.491 Non-pressure chronic ulcer of skin of other sites limited to breakdown of skin; E11.620 Type 2 diabetes mellitus with diabetic dermatitis; E11.51 Type 2 diabetes mellitus with diabetic peripheral angiopathy without gangrene; E11.65 Type 2 diabetes mellitus with hyperglycemia; J44.9 Chronic obstructive pulmonary disease, unspecified; K21.9 Gastro-esophageal reflux disease without esophagitis; E87.6 Hypokalemia; E66.01 Morbid (severe) obesity due to excess calories; G47.30 Sleep apnea, unspecified; M19.90 Unspecified osteoarthritis, unspecified site; I10 Essential (primary) hypertension; F32.9 Major depressive disorder, single episode, unspecified; F19.10 Other psychoactive substance abuse, uncomplicated; F10.10 Alcohol abuse, uncomplicated; F15.10 Other stimulant abuse, uncomplicated; Z68.42 Body mass index [BMI] 45.0-49.9, adult; Z79.4 Long term (current) use of insulin; Z86.14 Personal history of Methicillin resistant Staphylococcus aureus infection; Z87.891 Personal history of nicotine dependence; Z90.49 Acquired absence of other specified parts of digestive tract; Y83.8 Other surgical procedures as the cause of abnormal reaction of the patient, or of later complication, without mention of misadventure at the time of the procedure
CPT/HCPCS: 36416; 82948; 97597; A6021

== ENCOUNTER 2017-11-28 10:15 | Day surgery (SDC) | payer MEDICAID ==
[2017-11-28] MEDS ORDERED: CEPH-571 PO (15:35)
== END 2017-11-28 13:17 | disposition home or self-care (01) ==
LOC: WOUND CARE 10:15
PROVIDERS: ATTEND Surgery
DX: T81.89XD Other complications of procedures, not elsewhere classified, subsequent encounter (principal); L98.492 Non-pressure chronic ulcer of skin of other sites with fat layer exposed; E11.620 Type 2 diabetes mellitus with diabetic dermatitis; E11.51 Type 2 diabetes mellitus with diabetic peripheral angiopathy without gangrene; E11.65 Type 2 diabetes mellitus with hyperglycemia; J44.9 Chronic obstructive pulmonary disease, unspecified; K21.9 Gastro-esophageal reflux disease without esophagitis; E87.6 Hypokalemia; E66.01 Morbid (severe) obesity due to excess calories; G47.30 Sleep apnea, unspecified; M19.90 Unspecified osteoarthritis, unspecified site; I10 Essential (primary) hypertension; F32.9 Major depressive disorder, single episode, unspecified; F19.10 Other psychoactive substance abuse, uncomplicated; F10.10 Alcohol abuse, uncomplicated; F15.10 Other stimulant abuse, uncomplicated; Z68.42 Body mass index [BMI] 45.0-49.9, adult; Z79.4 Long term (current) use of insulin; Z86.14 Personal history of Methicillin resistant Staphylococcus aureus infection; Z87.891 Personal history of nicotine dependence; Z90.49 Acquired absence of other specified parts of digestive tract; Y83.8 Other surgical procedures as the cause of abnormal reaction of the patient, or of later complication, without mention of misadventure at the time of the procedure
CPT/HCPCS: 36416; 82948; 97597; A6021; A6206; A6212

== ENCOUNTER 2017-12-05 10:50 | Outpatient (CLI) | payer MEDICAID ==
[~2017-12-05 10:50] MED LIST changes: +CEPH-571 PO
[2017-12-05] MEDS ORDERED: LIDOcaine 2% 5ml jelly ONE (12:21)
== END 2017-12-05 12:55 | disposition home or self-care (01) ==
LOC: WOUND CARE 10:50 → EDSTATUS 11:30 → WOUND CARE 12:55
PROVIDERS: ATTEND Surgery
DX: T81.89XD Other complications of procedures, not elsewhere classified, subsequent encounter (principal); L98.492 Non-pressure chronic ulcer of skin of other sites with fat layer exposed; E11.620 Type 2 diabetes mellitus with diabetic dermatitis; E11.51 Type 2 diabetes mellitus with diabetic peripheral angiopathy without gangrene; E11.65 Type 2 diabetes mellitus with hyperglycemia; J44.9 Chronic obstructive pulmonary disease, unspecified; K21.9 Gastro-esophageal reflux disease without esophagitis; E87.6 Hypokalemia; E66.01 Morbid (severe) obesity due to excess calories; G47.30 Sleep apnea, unspecified; M19.90 Unspecified osteoarthritis, unspecified site; I10 Essential (primary) hypertension; F32.9 Major depressive disorder, single episode, unspecified; F19.10 Other psychoactive substance abuse, uncomplicated; F10.10 Alcohol abuse, uncomplicated; F15.10 Other stimulant abuse, uncomplicated; Z68.42 Body mass index [BMI] 45.0-49.9, adult; Z79.4 Long term (current) use of insulin; Z86.14 Personal history of Methicillin resistant Staphylococcus aureus infection; Z87.891 Personal history of nicotine dependence; Z90.49 Acquired absence of other specified parts of digestive tract; Y83.8 Other surgical procedures as the cause of abnormal reaction of the patient, or of later complication, without mention of misadventure at the time of the procedure
CPT/HCPCS: 36416; 82948; 99215; A6212

== ENCOUNTER 2017-12-31 20:01 | Emergency (ER) | payer MEDICAID ==
[~2017-12-31] VITALS: Ht 157.5 cm; Wt 90.0 kg
[2017-12-31] MEDS ORDERED: ibuprofen tablet 400 MG TABLET PO ONE (22:00)
[2017-12-31] MEDS ORDERED: acetaminophen 325mg tablet PO ONE (22:00)
[2017-12-31 22:25] LABS: BASOPHILS # (AUTO) 0.1 X10'3 (0-0.2); BASOPHILS % (AUTO) 1.2 % (0-1); EOSINOPHILS # (AUTO) 0.3 X10'3 (0-0.9); EOSINOPHILS % (AUTO) 2.4 % (0-6); HEMATOCRIT 40.9 % (35.0-45.0); HEMOGLOBIN 13.6 g/dl (12.0-16.0); LYMPHOCYTES # (AUTO) 2.4 X10'3 (1.1-4.8); LYMPHOCYTES % (AUTO) 22.2 % (21-51); MEAN CORPUSCULAR HEMOGLOBIN 26.8 PG (27.0-31.0); MEAN CORPUSCULAR HGB CONC 33.3 % (33.0-36.5); MEAN CORPUSCULAR VOLUME 80.3 FL (78-98); MEAN PLATELET VOLUME 9.2 FL (7.4-10.4); MONOCYTES # (AUTO) 0.6 X10'3 (0-0.9); MONOCYTES % (AUTO) 5.3 % (2-12); NEUTROPHILS # (AUTO) 7.4 X10'3 (1.8-7.7); NEUTROPHILS % (AUTO) 68.9 % (42-75); PLATELET COUNT 296 X10'3 (140-440); RED BLOOD COUNT 5.09 X10'6 (4.20-5.60); RED CELL DISTRIBUTION WIDTH 13.9 % (11.5-14.5); WHITE BLOOD COUNT 10.7 X10'3 (4.5-11.0)
[2017-12-31 22:26] VITALS: BP 141/97
== END 2017-12-31 23:01 | disposition home or self-care (01) ==
LOC: ER 20:01
DX: M70.22 Olecranon bursitis, left elbow (principal); J45.909 Unspecified asthma, uncomplicated; K21.9 Gastro-esophageal reflux disease without esophagitis; E11.9 Type 2 diabetes mellitus without complications; M19.90 Unspecified osteoarthritis, unspecified site; F15.90 Other stimulant use, unspecified, uncomplicated; G89.29 Other chronic pain; Z88.8 Allergy status to other drugs, medicaments and biological substances; Z79.2 Long term (current) use of antibiotics; Z59.0 Homelessness; Y93.89 Activity, other specified
CPT/HCPCS: 36415; 85025; 99283

== ENCOUNTER 2018-07-24 22:05 | Inpatient (IN) | payer MEDICAID ==
[~2018-07-24] VITALS: Ht 157.5 cm; Wt 89.5 kg
[2018-07-24] MEDS ORDERED: ondansetron 4mg rapidly disintigrating tab PO ONE (23:00)
[2018-07-24] MEDS ORDERED: normal saline 1000ml 1,000 ML IV ONE (23:00)
[2018-07-24] MEDS ORDERED: morphine 4 MG/ML inj SYRINge IV ONE (23:00)
[2018-07-24 23:08] LABS: BASOPHILS # (AUTO) 0.1 X10'3 (0-0.2); EOSINOPHILS # (AUTO) 0.2 X10'3 (0-0.9); HEMATOCRIT 45.5 % (35.0-45.0); HEMOGLOBIN 15.1 g/dl (12.0-16.0); LYMPHOCYTES # (AUTO) 1.9 X10'3 (1.1-4.8); LYMPHOCYTES % (AUTO) 15.7 % (21-51); MEAN CORPUSCULAR HEMOGLOBIN 27.9 PG (27.0-31.0); MEAN CORPUSCULAR HGB CONC 33.2 g/dL (33.0-36.5); MEAN CORPUSCULAR VOLUME 84.1 FL (78-98); MEAN PLATELET VOLUME 8.7 FL (7.4-10.4); MONOCYTES # (AUTO) 0.8 X10'3 (0-0.9); MONOCYTES % (AUTO) 6.7 % (2-12); NEUTROPHILS % (AUTO) 74.6 % (42-75); PLATELET COUNT 264 X10'3 (140-440); RED BLOOD COUNT 5.42 X10'6 (4.20-5.60); RED CELL DISTRIBUTION WIDTH 14.1 % (11.5-14.5)
[2018-07-24 23:24] LABS: INR 0.9 INR; PROTHROMBIN TIME 9.5 SECONDS (9.0-12.0)
--- NOTE | 2018-07-24 23:27 | NUR ---
RELIEVING RN FOR LUNCH, 1ST LITER NS INFUSING W/O
[2018-07-24 23:28] LABS: ALANINE AMINOTRANSFERASE 33 U/L (12-78); ALBUMIN/GLOBULIN RATIO 0.6 (1.1-1.5); ANION GAP 7 (8-16); ASPARTATE AMINO TRANSFERASE 16 U/L (10-37); BILIRUBIN,TOTAL 0.3 MG/DL (0.1-1.0); BLOOD UREA NITROGEN 21 MG/DL (7-18); BUN/CREATININE RATIO 26.3 (6.6-38.0); CALCIUM 9.4 MG/DL (8.5-10.1); CHLORIDE 100 MMOL/L (99-107); GLUCOSE 351 MG/DL (70-104); POTASSIUM 4.1 MMOL/L (3.5-5.1); SODIUM 136 MMOL/L (135-145); TOTAL CARBON DIOXIDE 28.6 MMOL/L (24-32); TOTAL PROTEIN 7.7 G/DL (6.4-8.2); eGFR 75 ML/MIN
[2018-07-24 23:29] LABS: ALKALINE PHOSPHATASE 131 IU/L (46-116); LIPASE 112 U/L (73-393)
[2018-07-24 23:58] LABS: CLARITY,URINE CLEAR (Clear); COLOR,URINE YELLOW (Yellow); GLUCOSE, URINE >=1000 mg/dl (Neg); KETONES,URINE TRACE mg/dl (Neg); LEUKOCYTE ESTERASE ,URINE NEGATIVE (Neg); NITRITES, URINE NEGATIVE (Neg); OCCULT BLOOD,URINE TRACE-LYSED (Neg); PROTEIN,URINE >=300 mg/dl (Neg); UROBILINOGEN,URINE 0.2 E.U/dL (0.2-1.0)
[2018-07-24 23:59] LABS: URINE HCG NEGATIVE (NEG)
[2018-07-25 00:03] LABS: UA COLLECTION TYPE CLN CATCH MIDSTREAM
[2018-07-25 00:08] LABS: BACTERIA,URINE 2+ /HPF (Neg); SQUAMOUS EPITHELIAL CELL,UR MANY /LPF (FEW)
[2018-07-25] MEDS ORDERED: morphine 4 MG/ML inj SYRINge IV ONE (01:30)
[2018-07-25] MEDS ORDERED: magnesium hydroxide 30ml (MOM) UD suspension PO PRN (03:15)
[2018-07-25] MEDS ORDERED: morphine 4 MG/ML inj SYRINge IV PRN ×2 (03:15)
[2018-07-25] MEDS ORDERED: MESSAGE TO PHARMACY PO ONE (03:15)
[2018-07-25] MEDS ORDERED: magnesium 2GM in 50ml NS 50 ML IV PRN (03:15)
[2018-07-25] MEDS ORDERED: acetaminophen 325mg tablet PO PRN (03:15)
[2018-07-25] MEDS ORDERED: ondansetron/PF 4mg/2ml inj IV PRN (03:15)
[2018-07-25] MEDS ORDERED: magnesium 4gm in 100ml NS 100 ML IV PRN (03:15)
[2018-07-25] MEDS ORDERED: potassium Cl 20 mEq SR tablet PO PRN ×2 (03:15)
[2018-07-25] MEDS ORDERED: glucagon, human recombinant 1mg kit SUBCUT PRN (03:15)
[2018-07-25] MEDS ORDERED: potassium Cl 40MEQ/NS 500ml 500 ML IV PRN ×2 (03:15)
[2018-07-25] MEDS ORDERED: dextrose ORAL solution 15 GM/59 ML bottle PO PRN ×2 (03:15)
[2018-07-25] MEDS ORDERED: mag hydrox/Alum hydrox/simeth 30ml oral suspension PO PRN (03:15)
[2018-07-25] MEDS ORDERED: dextrose 50%-water 50ml dispensing syringe IV PRN ×2 (03:15)
[2018-07-25] MEDS: normal saline 1000ml 1,000 ML IV SCH ×2 (03:51→03:58)
[2018-07-25] MEDS ORDERED: METF-438 (03:55)
[2018-07-25] MEDS ORDERED: INSU100I31 (03:55)
--- NOTE | 2018-07-25 04:03 | NUR ---
ng placed to left nare. vss.
--- NOTE | 2018-07-25 05:22 | NUR ---
Patient in room . I have received report from NIMISHA Graham and had the opportunity to ask questions and assume patient care.
--- NOTE | 2018-07-25 06:18 | NUR ---
Problems reprioritized. Patient report given, questions answered & plan of care reviewed with NIMISHA Richardson.
--- NOTE | 2018-07-25 06:20 | NUR ---
Patient in room ELIEEN 352. I have received report from Nadia Harp RN and had the opportunity to ask questions and assume patient care.
[2018-07-25 07:02] LABS: BASOPHILS # (AUTO) 0.1 X10'3 (0-0.2); BASOPHILS % (AUTO) 0.9 % (0-1); EOSINOPHILS # (AUTO) 0.3 X10'3 (0-0.9); HEMATOCRIT 41.2 % (35.0-45.0); HEMOGLOBIN 13.6 g/dl (12.0-16.0); LYMPHOCYTES # (AUTO) 2.4 X10'3 (1.1-4.8); LYMPHOCYTES % (AUTO) 24.5 % (21-51); MEAN CORPUSCULAR HGB CONC 32.9 g/dL (33.0-36.5); MEAN CORPUSCULAR VOLUME 85.1 FL (78-98); MEAN PLATELET VOLUME 8.3 FL (7.4-10.4); MONOCYTES # (AUTO) 0.7 X10'3 (0-0.9); NEUTROPHILS # (AUTO) 6.4 X10'3 (1.8-7.7); NEUTROPHILS % (AUTO) 64.6 % (42-75); PLATELET COUNT 230 X10'3 (140-440); RED BLOOD COUNT 4.84 X10'6 (4.20-5.60); RED CELL DISTRIBUTION WIDTH 13.7 % (11.5-14.5)
[2018-07-25 07:11] LABS: ALANINE AMINOTRANSFERASE 28 U/L (12-78); ALBUMIN 2.4 G/DL (3.4-5.0); ALBUMIN/GLOBULIN RATIO 0.6 (1.1-1.5); ALKALINE PHOSPHATASE 101 IU/L (46-116); ANION GAP 6 (8-16); ASPARTATE AMINO TRANSFERASE 15 U/L (10-37); BILIRUBIN,TOTAL 0.2 MG/DL (0.1-1.0); BLOOD UREA NITROGEN 21 MG/DL (7-18); BUN/CREATININE RATIO 26.3 (6.6-38.0); CALCIUM 8.4 MG/DL (8.5-10.1); CHLORIDE 104 MMOL/L (99-107); GLUCOSE 299 MG/DL (70-104); SODIUM 139 MMOL/L (135-145); TOTAL PROTEIN 6.4 G/DL (6.4-8.2); eGFR 75 ML/MIN
[2018-07-25] MEDS: enoxaparin 40mg/0.4ml syringe SQ SCH (07:36)
[2018-07-25] MEDS: insulin Lispro (HumaLOG) vial - multi-dose SQ SCH ×3 (07:38→19:34)
[2018-07-25 08:00] VITALS: BP 167/89
[2018-07-25] MEDS: K and/or MAG REPLACEMENT MC SCH (08:00)
[2018-07-25 12:00] VITALS: BP 163/94
[2018-07-25 12:38] VITALS: BP 163/94
[2018-07-25] MEDS ORDERED: pneumococcal 23-VAL P-sac vacc 25 mcg/0.5ml vial IMVAC ONE (14:15)
[2018-07-25] MEDS ORDERED: morphine 2 MG/ML inj. syringe IV PRN (15:39)
[2018-07-25] MEDS: morphine 2 MG/ML inj. syringe IV PRN ×2 (16:40→20:36)
--- NOTE | 2018-07-25 17:35 | NUR ---
DM consult, A1c 11, patient met at bedside and given written DM education handout with referral to free saturday morning outpatient DM education class. Patient was in pain at time of visit d/t partial small bowel obstruction, has NG tube for suction with 100 ml out today, pending surgical consult, unable to provide verbal review. Patient has h/o 9 hernia repairs and small bowel obstructions. Pt is homeless. RD contact info was left at bedside along with handout. Patient seen last September for DM education by RD, A1c at that time was 9.8; needs reinforcement of education this visit when able. Recommend: 1. When OK by surgeon, advance diet as medically indicated to carb controlled 2. Provide verbal DM education prior to discharge 3. Wt per rx Addendum: 07/25/18 at [address] Amended: Links added.
[2018-07-25 18:00] VITALS: BP 147/78
--- NOTE | 2018-07-25 18:28 | NUR ---
Problems reprioritized. Patient report given, questions answered & plan of care reviewed with NIMISHA Fierro.
[2018-07-25] MEDS: NYSTATIN CREAM - 30GM TUBE TP SCH (20:00)
[2018-07-25] MEDS: insulin glargine (Lantus) pen - multi-dose SQ SCH (21:31)
[2018-07-26] MEDS: normal saline 1000ml 1,000 ML IV SCH ×3 (00:26→20:34)
--- NOTE | 2018-07-26 06:00 | NUR ---
Patient in room EILEEN 352. I have received report from Sri BANSAL and had the opportunity to ask questions and assume patient care.
--- NOTE | 2018-07-26 06:24 | NUR ---
Problems reprioritized. Patient report given, questions answered & plan of care reviewed with Lita BANSAL. Addendum: 07/26/18 at 0625 by Sri Curtis RN Amended: Links added.
[2018-07-26 06:41] VITALS: BP 138/79
[2018-07-26 06:45] LABS: ALANINE AMINOTRANSFERASE 30 U/L (12-78); ALBUMIN 2.3 G/DL (3.4-5.0); ALBUMIN/GLOBULIN RATIO 0.6 (1.1-1.5); ALKALINE PHOSPHATASE 81 IU/L (46-116); ANION GAP 4 (8-16); ASPARTATE AMINO TRANSFERASE 19 U/L (10-37); BASOPHILS # (AUTO) 0.1 X10'3 (0-0.2); BASOPHILS % (AUTO) 0.7 % (0-1); BILIRUBIN,TOTAL 0.2 MG/DL (0.1-1.0); BLOOD UREA NITROGEN 14 MG/DL (7-18); BUN/CREATININE RATIO 20.3 (6.6-38.0); CALCIUM 8.2 MG/DL (8.5-10.1); CHLORIDE 103 MMOL/L (99-107); CREATININE 0.69 MG/DL (0.40-0.90); EOSINOPHILS # (AUTO) 0.4 X10'3 (0-0.9); GLUCOSE 188 MG/DL (70-104); HEMATOCRIT 41.5 % (35.0-45.0); HEMOGLOBIN 13.6 g/dl (12.0-16.0); LYMPHOCYTES # (AUTO) 2.3 X10'3 (1.1-4.8); LYMPHOCYTES % (AUTO) 23.9 % (21-51); MAGNESIUM 1.4 MG/DL (1.5-2.4); MEAN CORPUSCULAR HGB CONC 32.7 g/dL (33.0-36.5); MEAN CORPUSCULAR VOLUME 85.6 FL (78-98); MEAN PLATELET VOLUME 8.5 FL (7.4-10.4); MONOCYTES # (AUTO) 0.7 X10'3 (0-0.9); MONOCYTES % (AUTO) 7.6 % (2-12); NEUTROPHILS % (AUTO) 63.8 % (42-75); PLATELET COUNT 233 X10'3 (140-440); POTASSIUM 4.1 MMOL/L (3.5-5.1); RED BLOOD COUNT 4.85 X10'6 (4.20-5.60); SODIUM 136 MMOL/L (135-145); TOTAL CARBON DIOXIDE 29.2 MMOL/L (24-32); TOTAL PROTEIN 5.9 G/DL (6.4-8.2); WHITE BLOOD COUNT 9.4 X10'3 (4.5-11.0); eGFR 89 ML/MIN
--- NOTE | 2018-07-26 07:17 | NUR ---
Patient in room EILEEN 352. I have received report from STANLEY BANSAL and had the opportunity to ask questions and assume patient care.
[2018-07-26 08:00] VITALS: BP 144/81
[2018-07-26] MEDS: K and/or MAG REPLACEMENT MC SCH (08:00)
[2018-07-26] MEDS: NYSTATIN CREAM - 30GM TUBE TP SCH ×2 (08:00→20:00)
[2018-07-26] MEDS: enoxaparin 40mg/0.4ml syringe SQ SCH (09:31)
[2018-07-26] MEDS: insulin Lispro (HumaLOG) vial - multi-dose SQ SCH ×3 (09:42→18:54)
[2018-07-26] MEDS ORDERED: magnesium Cl slow-release 64mg tablet PO PRN (10:55)
[2018-07-26 11:00] VITALS: BP 148/86
--- NOTE | 2018-07-26 17:57 | NUR ---
Problems reprioritized. Patient report given, questions answered & plan of care reviewed with Sri BANSAL.
[2018-07-26 19:00] VITALS: BP 162/90
[2018-07-26] MEDS: morphine 2 MG/ML inj. syringe IV PRN (20:26)
[2018-07-26] MEDS: insulin glargine (Lantus) pen - multi-dose SQ SCH (22:17)
[2018-07-27] VITALS: BP 143/86
[2018-07-27 05:38] LABS: BASOPHILS # (AUTO) 0.1 X10'3 (0-0.2); BASOPHILS % (AUTO) 1.1 % (0-1); EOSINOPHILS # (AUTO) 0.2 X10'3 (0-0.9); EOSINOPHILS % (AUTO) 2.8 % (0-6); HEMATOCRIT 39.6 % (35.0-45.0); HEMOGLOBIN 13.1 g/dl (12.0-16.0); LYMPHOCYTES # (AUTO) 2.3 X10'3 (1.1-4.8); LYMPHOCYTES % (AUTO) 27.8 % (21-51); MEAN CORPUSCULAR HEMOGLOBIN 27.9 PG (27.0-31.0); MEAN CORPUSCULAR HGB CONC 33.1 g/dL (33.0-36.5); MEAN CORPUSCULAR VOLUME 84.5 FL (78-98); MEAN PLATELET VOLUME 8.5 FL (7.4-10.4); MONOCYTES # (AUTO) 0.6 X10'3 (0-0.9); MONOCYTES % (AUTO) 7.1 % (2-12); NEUTROPHILS # (AUTO) 5.1 X10'3 (1.8-7.7); NEUTROPHILS % (AUTO) 61.2 % (42-75); PLATELET COUNT 224 X10'3 (140-440); RED BLOOD COUNT 4.69 X10'6 (4.20-5.60); RED CELL DISTRIBUTION WIDTH 13.7 % (11.5-14.5); WHITE BLOOD COUNT 8.4 X10'3 (4.5-11.0)
[2018-07-27] MEDS: normal saline 1000ml 1,000 ML IV SCH (05:45)
[2018-07-27 05:48] LABS: ALANINE AMINOTRANSFERASE 23 U/L (12-78); ALBUMIN 2.2 G/DL (3.4-5.0); ALBUMIN/GLOBULIN RATIO 0.6 (1.1-1.5); ALKALINE PHOSPHATASE 85 IU/L (46-116); ANION GAP 7 (8-16); ASPARTATE AMINO TRANSFERASE 15 U/L (10-37); BILIRUBIN,TOTAL 0.1 MG/DL (0.1-1.0); BLOOD UREA NITROGEN 14 MG/DL (7-18); BUN/CREATININE RATIO 22.2 (6.6-38.0); CALCIUM 8.5 MG/DL (8.5-10.1); CHLORIDE 104 MMOL/L (99-107); CREATININE 0.63 MG/DL (0.40-0.90); GLUCOSE 229 MG/DL (70-104); MAGNESIUM 1.5 MG/DL (1.5-2.4); POTASSIUM 4.2 MMOL/L (3.5-5.1); SODIUM 136 MMOL/L (135-145); TOTAL CARBON DIOXIDE 25.1 MMOL/L (24-32); TOTAL PROTEIN 6.1 G/DL (6.4-8.2); eGFR > 90 ML/MIN
--- NOTE | 2018-07-27 06:00 | NUR ---
Patient in room EILEEN 352. I have received report from Sri BANSAL and had the opportunity to ask questions and assume patient care.
--- NOTE | 2018-07-27 06:12 | NUR ---
Problems reprioritized. Patient report given, questions answered & plan of care reviewed with Milena BANSAL. Addendum: 07/27/18 at 612 by Sri Curtis RN Amended: Links added. Addendum: 07/27/18 at 612 by Sri Curtis RN Amended: Links added.
--- NOTE | 2018-07-27 06:13 | NUR ---
Problems reprioritized. Patient report given, questions answered & plan of care reviewed with Milena BANSAL.
[2018-07-27 07:00] VITALS: BP 173/84
[2018-07-27] MEDS: NYSTATIN CREAM - 30GM TUBE TP SCH (08:00)
[2018-07-27] MEDS: K and/or MAG REPLACEMENT MC SCH (08:00)
[2018-07-27] MEDS: insulin Lispro (HumaLOG) vial - multi-dose SQ SCH ×2 (08:40→13:35)
[2018-07-27] MEDS: enoxaparin 40mg/0.4ml syringe SQ SCH (08:42)
[2018-07-27 11:00] VITALS: BP_SYST 163; BP_DIAS 73; BP_DIAS 89
== END 2018-07-27 14:45 | disposition home or self-care (01) | DRG 254 ==
LOC: ER 22:06 → ED HOLD 07-25 05:29 → SUR 3N 07-25 05:30
PROVIDERS: ADMIT Family Medicine; ATTEND Family Medicine
PROC: 0D9670Z Drainage of Stomach with Drainage Device, Via Natural or Artificial Opening (ICD-10-PCS; principal; 2018-07-25)
DX: K43.6 Other and unspecified ventral hernia with obstruction, without gangrene (principal); E11.65 Type 2 diabetes mellitus with hyperglycemia; D72.829 Elevated white blood cell count, unspecified; F15.90 Other stimulant use, unspecified, uncomplicated; F32.9 Major depressive disorder, single episode, unspecified; G47.33 Obstructive sleep apnea (adult) (pediatric); J45.909 Unspecified asthma, uncomplicated; Z96.659 Presence of unspecified artificial knee joint; K21.9 Gastro-esophageal reflux disease without esophagitis; G51.0 Bell's palsy; G89.29 Other chronic pain; D72.823 Leukemoid reaction; M54.9 Dorsalgia, unspecified; M19.90 Unspecified osteoarthritis, unspecified site; Z98.51 Tubal ligation status; Z79.4 Long term (current) use of insulin; Z80.3 Family history of malignant neoplasm of breast; Z59.0 Homelessness; Z79.899 Other long term (current) drug therapy; Z88.2 Allergy status to sulfonamides; Z88.8 Allergy status to other drugs, medicaments and biological substances; Z88.1 Allergy status to other antibiotic agents
CPT/HCPCS: 36415; 71045; 74176; 80053; 81001; 81003; 81025; 82948; 83036; 83605; 83690; 83735; 84484; 85025; 85610; 87070; 90732; 93005; 96374; 96375; 96376; 99285; G0378; J1650; J1815; J2270; J2405; J7030

== ENCOUNTER 2018-08-05 17:26 | Emergency (ER) | payer MEDICAID ==
[~2018-08-05] VITALS: Ht 157.5 cm; Wt 95.0 kg
[~2018-08-05 17:26] MED LIST changes: -CEPH-571 PO; +INSU100I31; +METF-438; -ONDA8TAB6 PO
[2018-08-05] MEDS ORDERED: ipratropium/albuterol 3ml nebule NEB ONE (17:30)
[2018-08-05 18:08] LABS: BASOPHILS # (AUTO) 0.1 X10'3 (0-0.2); BASOPHILS % (AUTO) 1.3 % (0-1); EOSINOPHILS # (AUTO) 0.3 X10'3 (0-0.9); EOSINOPHILS % (AUTO) 2.3 % (0-6); HEMATOCRIT 37.5 % (35.0-45.0); HEMOGLOBIN 12.4 g/dl (12.0-16.0); LYMPHOCYTES # (AUTO) 2.5 X10'3 (1.1-4.8); LYMPHOCYTES % (AUTO) 21.9 % (21-51); MEAN CORPUSCULAR HEMOGLOBIN 27.9 PG (27.0-31.0); MEAN CORPUSCULAR HGB CONC 33.1 g/dL (33.0-36.5); MEAN CORPUSCULAR VOLUME 84.1 FL (78-98); MEAN PLATELET VOLUME 8.5 FL (7.4-10.4); MONOCYTES # (AUTO) 0.8 X10'3 (0-0.9); MONOCYTES % (AUTO) 6.8 % (2-12); NEUTROPHILS # (AUTO) 7.7 X10'3 (1.8-7.7); NEUTROPHILS % (AUTO) 67.7 % (42-75); PLATELET COUNT 277 X10'3 (140-440); RED BLOOD COUNT 4.45 X10'6 (4.20-5.60); RED CELL DISTRIBUTION WIDTH 13.8 % (11.5-14.5); WHITE BLOOD COUNT 11.4 X10'3 (4.5-11.0)
[2018-08-05 18:23] LABS: ALANINE AMINOTRANSFERASE 27 U/L (12-78); ALBUMIN 2.4 G/DL (3.4-5.0); ALBUMIN/GLOBULIN RATIO 0.6 (1.1-1.5); ALKALINE PHOSPHATASE 110 IU/L (46-116); ANION GAP 8 (8-16); ASPARTATE AMINO TRANSFERASE 16 U/L (10-37); BILIRUBIN,TOTAL 0.1 MG/DL (0.1-1.0); BLOOD UREA NITROGEN 15 MG/DL (7-18); BUN/CREATININE RATIO 17.4 (6.6-38.0); CALCIUM 8.1 MG/DL (8.5-10.1); CHLORIDE 104 MMOL/L (99-107); CREATININE 0.86 MG/DL (0.40-0.90); GLUCOSE 355 MG/DL (70-104); POTASSIUM 3.7 MMOL/L (3.5-5.1); SODIUM 136 MMOL/L (135-145); TOTAL CARBON DIOXIDE 24.2 MMOL/L (24-32); TOTAL PROTEIN 6.4 G/DL (6.4-8.2); eGFR 69 ML/MIN
[2018-08-05 18:30] LABS: MAGNESIUM 1.4 MG/DL (1.5-2.4)
[2018-08-05] MEDS ORDERED: PRED20TA PO (19:52)
[2018-08-05] MEDS ORDERED: ALBU8.5H8 IH (19:53)
[2018-08-05 20:14] VITALS: BP 134/97
== END 2018-08-05 20:16 | disposition home or self-care (01) ==
LOC: ER 17:27
DX: J45.909 Unspecified asthma, uncomplicated (principal); K21.9 Gastro-esophageal reflux disease without esophagitis; E11.9 Type 2 diabetes mellitus without complications; M19.90 Unspecified osteoarthritis, unspecified site; G89.29 Other chronic pain; F15.90 Other stimulant use, unspecified, uncomplicated; Z98.51 Tubal ligation status; Z98.890 Other specified postprocedural states; Z88.1 Allergy status to other antibiotic agents; Z88.2 Allergy status to sulfonamides; Z88.8 Allergy status to other drugs, medicaments and biological substances; Z79.4 Long term (current) use of insulin; Z79.84 Long term (current) use of oral hypoglycemic drugs; Z79.899 Other long term (current) drug therapy; Z87.891 Personal history of nicotine dependence; Z59.0 Homelessness
CPT/HCPCS: 36415; 71045; 80053; 83735; 83880; 84145; 84484; 85025; 93005; 94640; 94760; 99284

== ENCOUNTER 2018-08-26 02:32 | Emergency (ER) | payer MEDICAID ==
[~2018-08-26] VITALS: Ht 157.5 cm; Wt 90.7 kg
[~2018-08-26 02:32] MED LIST changes: +ALBU8.5H8 IH; +PRED20TA PO
[2018-08-26] MEDS ORDERED: ketorolac trometh. 30mg/ml inj. IM ONE (03:05)
[2018-08-26] MEDS ORDERED: ondansetron 4mg rapidly disintigrating tab PO ONE (03:05)
[2018-08-26 03:11] LABS: BASOPHILS # (AUTO) 0.2 X10'3 (0-0.2); BASOPHILS % (AUTO) 1.4 % (0-1); EOSINOPHILS # (AUTO) 0.2 X10'3 (0-0.9); HEMATOCRIT 44.8 % (35.0-45.0); HEMOGLOBIN 14.8 g/dl (12.0-16.0); LYMPHOCYTES # (AUTO) 2.3 X10'3 (1.1-4.8); LYMPHOCYTES % (AUTO) 20.3 % (21-51); MEAN CORPUSCULAR HEMOGLOBIN 28.1 PG (27.0-31.0); MEAN CORPUSCULAR HGB CONC 33.1 g/dL (33.0-36.5); MEAN CORPUSCULAR VOLUME 84.9 FL (78-98); MEAN PLATELET VOLUME 8.9 FL (7.4-10.4); MONOCYTES # (AUTO) 0.7 X10'3 (0-0.9); MONOCYTES % (AUTO) 6.5 % (2-12); NEUTROPHILS # (AUTO) 7.8 X10'3 (1.8-7.7); NEUTROPHILS % (AUTO) 69.8 % (42-75); PLATELET COUNT 257 X10'3 (140-440); RED BLOOD COUNT 5.27 X10'6 (4.20-5.60); RED CELL DISTRIBUTION WIDTH 13.8 % (11.5-14.5); WHITE BLOOD COUNT 11.2 X10'3 (4.5-11.0)
[2018-08-26 03:23] LABS: INR 0.9 INR
[2018-08-26 03:27] LABS: ALANINE AMINOTRANSFERASE 37 U/L (12-78); ALBUMIN 2.8 G/DL (3.4-5.0); ALBUMIN/GLOBULIN RATIO 0.6 (1.1-1.5); ALKALINE PHOSPHATASE 137 IU/L (46-116); ANION GAP 4 (8-16); ASPARTATE AMINO TRANSFERASE 19 U/L (10-37); BILIRUBIN,TOTAL 0.3 MG/DL (0.1-1.0); BLOOD UREA NITROGEN 13 MG/DL (7-18); CALCIUM 8.6 MG/DL (8.5-10.1); CHLORIDE 101 MMOL/L (99-107); CREATININE 0.93 MG/DL (0.40-0.90); GLUCOSE 384 MG/DL (70-104); LIPASE 103 U/L (73-393); POTASSIUM 3.7 MMOL/L (3.5-5.1); SODIUM 134 MMOL/L (135-145); TOTAL CARBON DIOXIDE 29.4 MMOL/L (24-32); TOTAL PROTEIN 7.4 G/DL (6.4-8.2); eGFR 63 ML/MIN
[2018-08-26 03:49] LABS: CLARITY,URINE SLIGHTLY CLOUDY (Clear); COLOR,URINE STRAW (Yellow); GLUCOSE, URINE >=1000 mg/dl (Neg); KETONES,URINE NEGATIVE (Neg); LEUKOCYTE ESTERASE ,URINE NEGATIVE (Neg); NITRITES, URINE NEGATIVE (Neg); OCCULT BLOOD,URINE SMALL (Neg); PROTEIN,URINE 100 mg/dl (Neg); UROBILINOGEN,URINE 0.2 E.U/dL (0.2-1.0)
[2018-08-26 03:50] LABS: URINE HCG NEGATIVE (NEG)
[2018-08-26 03:52] LABS: UA COLLECTION TYPE CLN CATCH MIDSTREAM
[2018-08-26 03:55] LABS: BACTERIA,URINE 2+ /HPF (Neg); MUCUS STRANDS NONE SEEN /LPF (Neg); RBC,URINE 0-2 /HPF (0-2); SQUAMOUS EPITHELIAL CELL,UR MANY /LPF (FEW); WBC,URINE 0-4 /HPF (0-4)
[2018-08-26 04:37] VITALS: BP 145/85
== END 2018-08-26 04:48 | disposition home or self-care (01) ==
LOC: ER 02:33
DX: R10.32 Left lower quadrant pain (principal); J45.909 Unspecified asthma, uncomplicated; K21.9 Gastro-esophageal reflux disease without esophagitis; E11.9 Type 2 diabetes mellitus without complications; M19.90 Unspecified osteoarthritis, unspecified site; G89.29 Other chronic pain; F15.90 Other stimulant use, unspecified, uncomplicated; Z90.710 Acquired absence of both cervix and uterus; Z98.51 Tubal ligation status; Z98.890 Other specified postprocedural states; Z88.1 Allergy status to other antibiotic agents; Z88.2 Allergy status to sulfonamides; Z79.4 Long term (current) use of insulin; Z88.8 Allergy status to other drugs, medicaments and biological substances; Z79.899 Other long term (current) drug therapy; Z59.0 Homelessness
CPT/HCPCS: 36415; 80053; 81001; 81025; 83690; 85025; 85610; 96372; 99283; J1885

== ENCOUNTER 2018-09-21 08:42 | Emergency (ER) | payer MEDICAID ==
[~2018-09-21] VITALS: Ht 157.5 cm; Wt 90.9 kg
[~2018-09-21 08:42] MED LIST changes: -PRED20TA PO
[2018-09-21 09:14] LABS: BASOPHILS # (AUTO) 0.1 X10'3 (0-0.2); BASOPHILS % (AUTO) 1.1 % (0-1); EOSINOPHILS # (AUTO) 0.2 X10'3 (0-0.9); HEMOGLOBIN 15.1 g/dl (12.0-16.0); LYMPHOCYTES # (AUTO) 2.1 X10'3 (1.1-4.8); LYMPHOCYTES % (AUTO) 25.5 % (21-51); MEAN CORPUSCULAR HEMOGLOBIN 28.8 PG (27.0-31.0); MEAN CORPUSCULAR HGB CONC 33.6 g/dL (33.0-36.5); MEAN CORPUSCULAR VOLUME 85.6 FL (78-98); MEAN PLATELET VOLUME 8.8 FL (7.4-10.4); MONOCYTES # (AUTO) 0.5 X10'3 (0-0.9); MONOCYTES % (AUTO) 6.5 % (2-12); NEUTROPHILS # (AUTO) 5.3 X10'3 (1.8-7.7); NEUTROPHILS % (AUTO) 63.9 % (42-75); PLATELET COUNT 271 X10'3 (140-440); RED BLOOD COUNT 5.25 X10'6 (4.20-5.60); RED CELL DISTRIBUTION WIDTH 13.7 % (11.5-14.5); WHITE BLOOD COUNT 8.2 X10'3 (4.5-11.0)
[2018-09-21 09:46] LABS: PARTIAL THROMBOPLASTIN TIME 24 SECONDS (22-32)
[2018-09-21 10:00] LABS: ALANINE AMINOTRANSFERASE 55 U/L (12-78); ALBUMIN 2.3 G/DL (3.4-5.0); ALBUMIN/GLOBULIN RATIO 0.5 (1.1-1.5); ALKALINE PHOSPHATASE 153 IU/L (46-116); ANION GAP 5 (8-16); ASPARTATE AMINO TRANSFERASE 35 U/L (10-37); BILIRUBIN,TOTAL 0.3 MG/DL (0.1-1.0); BLOOD UREA NITROGEN 10 MG/DL (7-18); BUN/CREATININE RATIO 11.5 (6.6-38.0); CALCIUM 8.3 MG/DL (8.5-10.1); CHLORIDE 102 MMOL/L (99-107); CREATININE 0.87 MG/DL (0.40-0.90); GLUCOSE 394 MG/DL (70-104); POTASSIUM 3.7 MMOL/L (3.5-5.1); SODIUM 135 MMOL/L (135-145); eGFR 68 ML/MIN
[2018-09-21 10:28] VITALS: BP 147/82
== END 2018-09-21 10:34 | disposition home or self-care (01) ==
LOC: ER 08:43
DX: R06.02 Shortness of breath (principal); R42 Dizziness and giddiness; F15.10 Other stimulant abuse, uncomplicated; L08.89 Other specified local infections of the skin and subcutaneous tissue; J45.909 Unspecified asthma, uncomplicated; K21.9 Gastro-esophageal reflux disease without esophagitis; E11.9 Type 2 diabetes mellitus without complications; M19.90 Unspecified osteoarthritis, unspecified site; G89.29 Other chronic pain; Z59.0 Homelessness; Z98.890 Other specified postprocedural states; Z90.710 Acquired absence of both cervix and uterus; Z98.51 Tubal ligation status; Z88.3 Allergy status to other anti-infective agents; Z88.2 Allergy status to sulfonamides; Z88.8 Allergy status to other drugs, medicaments and biological substances; Z79.4 Long term (current) use of insulin
CPT/HCPCS: 36415; 71045; 80053; 84484; 85025; 85610; 85730; 93005; 99284

== ENCOUNTER 2018-11-04 17:20 | Emergency (ER) | payer MEDICAID ==
[~2018-11-04] VITALS: Ht 157.5 cm; Wt 89.0 kg
[2018-11-04] MEDS ORDERED: METH-360 PO (19:38)
[2018-11-04] MEDS ORDERED: NAPR-56 PO (19:38)
[2018-11-04] MEDS ORDERED: ketorolac tromethamine 15mg/ml inj. IM ONE (19:40)
[2018-11-04] MEDS ORDERED: orphenadrine citrate 60mg/2ml inj. IM ONE (19:40)
[2018-11-04 19:58] VITALS: BP 140/69
== END 2018-11-04 20:00 | disposition home or self-care (01) ==
LOC: ER 17:21
DX: M25.511 Pain in right shoulder (principal); J45.909 Unspecified asthma, uncomplicated; K21.9 Gastro-esophageal reflux disease without esophagitis; E11.9 Type 2 diabetes mellitus without complications; M19.90 Unspecified osteoarthritis, unspecified site; G89.29 Other chronic pain; F32.9 Major depressive disorder, single episode, unspecified; F15.90 Other stimulant use, unspecified, uncomplicated; Z90.710 Acquired absence of both cervix and uterus; Z98.890 Other specified postprocedural states; Z98.51 Tubal ligation status; Z88.1 Allergy status to other antibiotic agents; Z88.2 Allergy status to sulfonamides; Z88.8 Allergy status to other drugs, medicaments and biological substances; Z79.4 Long term (current) use of insulin; Z79.84 Long term (current) use of oral hypoglycemic drugs; Z79.899 Other long term (current) drug therapy; Z59.0 Homelessness
CPT/HCPCS: 96372; 99283; J1885; J2360

== ENCOUNTER 2018-11-22 15:29 | Inpatient (IN) | payer MEDICAID ==
[~2018-11-22] VITALS: Ht 157.5 cm; Wt 90.9 kg
[~2018-11-22 15:29] MED LIST changes: +METH-360 PO; +NAPR-56 PO
[2018-11-22] MEDS ORDERED: normal saline 1000ML IV soln IVB ONE (15:45)
--- NOTE | 2018-11-22 15:45 | NUR ---
arrived for [facility]. Last known well was 100:00 this morning. At 11:30 this morning noted slurred speech followed by right arm and leg weakness when pt tried to get up to go to the bathroom. said she could not stand. needed assistance to take her to the bathroom. [place] [facility] [place] [facility]. Pt has diabetes and is insulin dependent.. current accu chek is 378. 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
--- NOTE | 2018-11-22 15:55 | NUR ---
New right arm and leg weakness. Speech is slurred. Pt has no teeth and no dentures. Does exhibit some sensory loss over the right arm and leg. No aphasia. No extinction or neglect. 1610 tele neuro consult with soc, Dr Sylvester at 1610. [address] for CTA
[2018-11-22 16:24] LABS: BASOPHILS # (AUTO) 0.1 X10'3 (0-0.2); BASOPHILS % (AUTO) 1.2 % (0-1); EOSINOPHILS # (AUTO) 0.2 X10'3 (0-0.9); EOSINOPHILS % (AUTO) 2.1 % (0-6); HEMATOCRIT 43.5 % (35.0-45.0); HEMOGLOBIN 14.6 g/dl (12.0-16.0); LYMPHOCYTES # (AUTO) 2.2 X10'3 (1.1-4.8); LYMPHOCYTES % (AUTO) 18.7 % (21-51); MEAN CORPUSCULAR HEMOGLOBIN 28.5 PG (27.0-31.0); MEAN CORPUSCULAR HGB CONC 33.6 g/dL (33.0-36.5); MEAN CORPUSCULAR VOLUME 85.1 FL (78-98); MEAN PLATELET VOLUME 9.4 FL (7.4-10.4); MONOCYTES # (AUTO) 0.7 X10'3 (0-0.9); NEUTROPHILS # (AUTO) 8.4 X10'3 (1.8-7.7); PLATELET COUNT 271 X10'3 (140-440); RED BLOOD COUNT 5.12 X10'6 (4.20-5.60); RED CELL DISTRIBUTION WIDTH 13.7 % (11.5-14.5); WHITE BLOOD COUNT 11.6 X10'3 (4.5-11.0)
[2018-11-22 16:28] LABS: PARTIAL THROMBOPLASTIN TIME 25 SECONDS (22-32)
[2018-11-22 16:37] LABS: ALANINE AMINOTRANSFERASE 50 U/L (12-78); ALBUMIN 2.5 G/DL (3.4-5.0); ALBUMIN/GLOBULIN RATIO 0.5 (1.1-1.5); ALKALINE PHOSPHATASE 138 IU/L (46-116); ANION GAP 9 (8-16); ASPARTATE AMINO TRANSFERASE 35 U/L (10-37); BILIRUBIN,TOTAL 0.1 MG/DL (0.1-1.0); BLOOD UREA NITROGEN 15 MG/DL (7-18); CALCIUM 8.4 MG/DL (8.5-10.1); CHLORIDE 100 MMOL/L (99-107); CREATININE 0.94 MG/DL (0.40-0.90); POTASSIUM 4.2 MMOL/L (3.5-5.1); SODIUM 135 MMOL/L (135-145); TOTAL CARBON DIOXIDE 25.6 MMOL/L (24-32); TOTAL PROTEIN 7.1 G/DL (6.4-8.2); TROPONIN I < 0.04 NG/ML (0.0-0.05); eGFR 62 ML/MIN
[2018-11-22 16:38] LABS: ETHANOL < 0.010 GM/DL (0.0-0.010)
[2018-11-22] MEDS ORDERED: iohexol 350MG/ML 100ml bottle IV ONE (16:38)
[2018-11-22 16:40] LABS: GLUCOSE 455 MG/DL (70-104)
[2018-11-22 17:19] LABS: URINE AMPHETAMINE SCREEN POSITIVE (Neg); URINE BARBITUATE SCREEN NEGATIVE (Neg); URINE BENZODIAZEPINES SCREEN NEGATIVE (Neg); URINE CANNABINOID SCREEN NEGATIVE (Neg); URINE COCAINE SCREEN NEGATIVE (Neg); URINE METHADONE SCREEN NEGATIVE (Neg); URINE OPIATE SCREEN NEGATIVE (Neg); URINE PHENCYCLIDINE SCREEN NEGATIVE (Neg)
[2018-11-22] MEDS ORDERED: aspirin 81mg tablet.DR PO ONE (18:05)
--- NOTE | 2018-11-22 18:48 | NUR ---
REPORT TO Arleen ACOSTA RN
[2018-11-22] MEDS ORDERED: normal saline 1000ml 1,000 ML IV SCH (19:31)
[2018-11-22] MEDS ORDERED: acetaminophen 325mg tablet PO PRN ×2 (19:35)
[2018-11-22] MEDS ORDERED: ondansetron/PF 4mg/2ml inj IV PRN (19:35)
[2018-11-22] MEDS ORDERED: magnesium hydroxide 30ml (MOM) UD suspension PO PRN (19:35)
[2018-11-22] MEDS ORDERED: mag hydrox/Alum hydrox/simeth 30ml oral suspension PO PRN (19:35)
[2018-11-22] MEDS ORDERED: dextrose ORAL solution 15 GM/59 ML bottle PO PRN ×2 (19:35)
[2018-11-22] MEDS ORDERED: glucagon, human recombinant 1mg kit SUBCUT PRN (19:35)
[2018-11-22] MEDS ORDERED: MESSAGE TO PHARMACY PO ONE (19:35)
[2018-11-22] MEDS ORDERED: dextrose 50%-water 50ml dispensing syringe IV PRN ×2 (19:35)
[2018-11-22 19:55] LABS: CHOL/HDL RATIO 6.8 (0.00-4.99); CHOLESTEROL 183 MG/DL (0-200); HDL CHOLESTEROL 27 MG/DL (35-60); LDL CHOLESTEROL 103 MG/DL (50-100); TRIGLYCERIDES 507 MG/DL (20-135)
[2018-11-22 20:07] LABS: HEMOGLOBIN A1C 11.3 % (4.5-6.2)
[2018-11-22] MEDS: insulin Lispro (HumaLOG) vial - multi-dose SQ SCH ×2 (20:41→22:13)
[2018-11-22 21:45] LABS: URINE HCG NEGATIVE (NEG)
[2018-11-22 21:50] LABS: CLARITY,URINE CLEAR (Clear); COLOR,URINE YELLOW (Yellow); GLUCOSE, URINE >=1000 mg/dl (Neg); KETONES,URINE NEGATIVE (Neg); LEUKOCYTE ESTERASE ,URINE NEGATIVE (Neg); NITRITES, URINE NEGATIVE (Neg); OCCULT BLOOD,URINE TRACE-INTACT (Neg); PH,URINE 5.5 (4.8-8.0); PROTEIN,URINE 30 mg/dl (Neg); UA COLLECTION TYPE CLN CATCH MIDSTREAM; UROBILINOGEN,URINE 0.2 E.U/dL (0.2-1.0)
[2018-11-22 22:01] LABS: BACTERIA,URINE NONE SEEN /HPF (Neg); MUCUS STRANDS NONE SEEN /LPF (Neg); RBC,URINE 0-2 /HPF (0-2); SQUAMOUS EPITHELIAL CELL,UR FEW /LPF (FEW); WBC,URINE 0-4 /HPF (0-4); YEAST FEW /HPF (NEGATIVE)
[2018-11-22] MEDS: insulin glargine (Lantus) pen - multi-dose SQ SCH (22:15)
[2018-11-22] MEDS: HYDROcodone/acetaminophen 5mg/325mg tablet PO PRN (22:20)
[2018-11-22 22:34] VITALS: BP 156/86
[2018-11-23 02:00] VITALS: BP 120/78
[2018-11-23 06:00] VITALS: BP 166/88
--- NOTE | 2018-11-23 06:30 | NUR ---
Patient in room ORTHO 4007. I have received report from and had the opportunity to ask questions and assume patient care NIMISHA Sun.
[2018-11-23 07:22] LABS: BASOPHILS # (AUTO) 0.1 X10'3 (0-0.2); BASOPHILS % (AUTO) 1.1 % (0-1); EOSINOPHILS # (AUTO) 0.3 X10'3 (0-0.9); EOSINOPHILS % (AUTO) 3.2 % (0-6); HEMATOCRIT 43.8 % (35.0-45.0); HEMOGLOBIN 14.8 g/dl (12.0-16.0); LYMPHOCYTES # (AUTO) 2.3 X10'3 (1.1-4.8); LYMPHOCYTES % (AUTO) 26.8 % (21-51); MEAN CORPUSCULAR HEMOGLOBIN 28.5 PG (27.0-31.0); MEAN CORPUSCULAR HGB CONC 33.7 g/dL (33.0-36.5); MEAN CORPUSCULAR VOLUME 84.5 FL (78-98); MEAN PLATELET VOLUME 8.9 FL (7.4-10.4); MONOCYTES # (AUTO) 0.4 X10'3 (0-0.9); MONOCYTES % (AUTO) 5.1 % (2-12); NEUTROPHILS # (AUTO) 5.5 X10'3 (1.8-7.7); NEUTROPHILS % (AUTO) 63.8 % (42-75); PLATELET COUNT 242 X10'3 (140-440); RED BLOOD COUNT 5.18 X10'6 (4.20-5.60); RED CELL DISTRIBUTION WIDTH 13.7 % (11.5-14.5); WHITE BLOOD COUNT 8.6 X10'3 (4.5-11.0)
[2018-11-23 07:27] LABS: ALBUMIN 2.3 G/DL (3.4-5.0); ANION GAP 6 (8-16); BLOOD UREA NITROGEN 10 MG/DL (7-18); BUN/CREATININE RATIO 15.2 (6.6-38.0); CALCIUM 7.9 MG/DL (8.5-10.1); CHLORIDE 104 MMOL/L (99-107); CREATININE 0.66 MG/DL (0.40-0.90); GLUCOSE 277 MG/DL (70-104); POTASSIUM 4.1 MMOL/L (3.5-5.1); SODIUM 138 MMOL/L (135-145); TOTAL CARBON DIOXIDE 27.8 MMOL/L (24-32); eGFR > 90 ML/MIN
[2018-11-23] MEDS: aspirin 81mg tablet.DR PO SCH (09:02)
[2018-11-23] MEDS: atorvastatin 10mg tablet PO SCH (09:02)
[2018-11-23] MEDS: enoxaparin 40mg/0.4ml syringe SUBCUT SCH (09:03)
[2018-11-23 10:00] VITALS: BP 139/84
[2018-11-23] MEDS ORDERED: pneumococcal 23-VAL P-sac vacc 25 mcg/0.5ml vial IMVAC ONE (10:00)
--- NOTE | 2018-11-23 11:26 | NUR ---
DM Consult: Pt admit w/ acute stroke and R sided weakness s/p meth use. Hx meth, homeless, T2DM A1C 11.3. Does not know baseline sugars per MD note. Pt pending ART GLASS DESIGNER BSS given R side weakness slurring. AOx3 per EMR. TG 507 on admit likely r/t chronic high GLU; receiving lipitor. GLU 318 down from 455 on admit. Pt will need DM ed once more stable prior to d/c. LBM 11/22. Will continue to monitor. Rec: 1. continue carb controlled diet; modify per ART GLASS DESIGNER recs 2. DM ed prior to d/c 3. wt per rx Addendum: 11/23/18 at [address] Amended: Links added.
--- NOTE | 2018-11-23 11:39 | NUR ---
VISITED EARLIER. STILL SLEEPS ALOT. STILL WEAK ON THE RIGHT BUT IMPROVED. + DRIFT BOTH RUE AND RLE. CHRONIC RIGHT FACIAL WEAKNESS FROM BELLS PALSY PER PT SOME 20 YEARS AGO.
[2018-11-23] MEDS: insulin Lispro (HumaLOG) vial - multi-dose SQ SCH ×2 (14:27→19:06)
[2018-11-23 18:00] VITALS: BP 150/89
[2018-11-23] MEDS: insulin glargine (Lantus) pen - multi-dose SQ SCH (21:00)
[2018-11-23 22:00] VITALS: BP 149/89
[2018-11-23] MEDS ORDERED: FERR325T28 PO (23:54)
[2018-11-23] MEDS ORDERED: ASPI-1265 PO (23:54)
[2018-11-23] MEDS ORDERED: POTA20TA19 PO (23:54)
[2018-11-23] MEDS ORDERED: IRBE150T51 PO (23:54)
[2018-11-23] MEDS ORDERED: CARV-50 PO (23:54)
[2018-11-23] MEDS ORDERED: ROFL500T7 PO (23:54)
[2018-11-23] MEDS ORDERED: FURO-149 PO (23:54)
[2018-11-24 02:00] VITALS: BP 175/89
[2018-11-24] MEDS: HYDROcodone/acetaminophen 5mg/325mg tablet PO PRN ×3 (02:39→09:49)
--- NOTE | 2018-11-24 06:00 | NUR ---
Patient in room ORTHO 4007. I have received report from and had the opportunity to ask questions and assume patient care NIMISHA Meza.
[2018-11-24 06:30] LABS: BASOPHILS # (AUTO) 0.1 X10'3 (0-0.2); BASOPHILS % (AUTO) 0.8 % (0-1); EOSINOPHILS # (AUTO) 0.2 X10'3 (0-0.9); EOSINOPHILS % (AUTO) 2.3 % (0-6); HEMATOCRIT 41.3 % (35.0-45.0); HEMOGLOBIN 13.8 g/dl (12.0-16.0); LYMPHOCYTES # (AUTO) 2.2 X10'3 (1.1-4.8); LYMPHOCYTES % (AUTO) 20.5 % (21-51); MEAN CORPUSCULAR HEMOGLOBIN 28.6 PG (27.0-31.0); MEAN CORPUSCULAR HGB CONC 33.5 g/dL (33.0-36.5); MEAN CORPUSCULAR VOLUME 85.5 FL (78-98); MONOCYTES # (AUTO) 0.6 X10'3 (0-0.9); MONOCYTES % (AUTO) 5.7 % (2-12); NEUTROPHILS # (AUTO) 7.6 X10'3 (1.8-7.7); NEUTROPHILS % (AUTO) 70.7 % (42-75); PLATELET COUNT 243 X10'3 (140-440); RED BLOOD COUNT 4.83 X10'6 (4.20-5.60); RED CELL DISTRIBUTION WIDTH 13.7 % (11.5-14.5); WHITE BLOOD COUNT 10.7 X10'3 (4.5-11.0)
--- NOTE | 2018-11-24 06:35 | NUR ---
report given to abiodun Uribe.
[2018-11-24 06:41] LABS: ALBUMIN 2.1 G/DL (3.4-5.0); ANION GAP 8 (8-16); BLOOD UREA NITROGEN 12 MG/DL (7-18); BUN/CREATININE RATIO 18.8 (6.6-38.0); CALCIUM 7.9 MG/DL (8.5-10.1); CHLORIDE 104 MMOL/L (99-107); CREATININE 0.64 MG/DL (0.40-0.90); GLUCOSE 253 MG/DL (70-104); POTASSIUM 4.1 MMOL/L (3.5-5.1); SODIUM 138 MMOL/L (135-145); eGFR > 90 ML/MIN
[2018-11-24 07:32] VITALS: BP 137/80
[2018-11-24] MEDS: aspirin 81mg tablet.DR PO SCH (08:42)
[2018-11-24] MEDS: atorvastatin 10mg tablet PO SCH (08:42)
[2018-11-24] MEDS: enoxaparin 40mg/0.4ml syringe SUBCUT SCH (08:43)
[2018-11-24 10:00] VITALS: BP 152/90
[2018-11-24] MEDS: insulin Lispro (HumaLOG) vial - multi-dose SQ SCH ×2 (10:07→19:37)
[2018-11-24 12:00] VITALS: BP 145/88
[2018-11-24] MEDS: lisinopril 10 MG tablet PO SCH (13:21)
--- NOTE | 2018-11-24 15:15 | NUR ---
F/u: Pt/SO seen by RD for written/verbal DM ed w/ RD contact information provided. Pt very passive during DM ed. RD encouraged to attend CDE course. Rec: 1. continue carb controlled diet; modify per DIGITAL PUBLISHING SPECIALIST recs 2. wt per rx Addendum: 11/24/18 at [address] Amended: Links added.
[2018-11-24 16:00] VITALS: BP 132/34
--- NOTE | 2018-11-24 18:00 | NUR ---
Problems reprioritized. Patient report given, questions answered & plan of care reviewed with NIMISHA Meza.
--- NOTE | 2018-11-24 19:02 | NUR ---
REPORT REC'D FROM NIMISHA ORTIZ.
[2018-11-24] MEDS: insulin glargine (Lantus) pen - multi-dose SQ SCH (20:59)
--- NOTE | 2018-11-24 21:48 | NUR ---
REC'D REPORT THAT PT HAD TAKEN A DOWNTURN AFTER LUNCH. RN ENTERED THE ROOM TO ASSESS PT AND PT'S WAS FEEDING HER, SHE WAS SLUMPED IN THE BED. RN INQUIRED ABOUT DOWNTURN, AND STOPPED TO ASSESS. PT WAS BOOSTED UP, HOB HIGH AND TURNED ON LIGHTS IN ROOM. PT WAS ASSESSED FOR INABILITY TO FEED SELF. RN INQUIRED IF PT HAD TAKEN ANY UNKNOWN MEDICATIONS OR IF PTS HAD GIVEN HER ANY UNKNOWN MEDICATION. PT STATES THAT HER ARM IS WORSE TODAY, AND SPEECH IS WORSE. PT HAS HAD BELLS'PALSY FOR REPORTEDLY OVER 20+ YRS AND RIGHT SIDE HAS BEEN WEAK A RESULT. PT HAS MULTIPLE DX'S THAT CONTRIBUTE TO HIGH RISK FOR STROKE WHICH WAS EXPLAINED TO AND . RN CONTINUED TO ASSESS AND PT BECAME ANGRY AND STARTED MOVING ARMS THAT WERE "UNABLE TO MOVE." THE PT WAS ANGRY AND STATED THAT RN WAS "ACCUSING" HER AND HER , RN STATED THAT THESE WERE MEDICAL QUESTIONS AND WERE NECESSARY TO ASSESS THAT PT CONDITION, SHE IS NOW MOVING HER ARMS AND IS CAPABLE OF FEEDING HERSELF, ENCOURAGING HER "TO NOT GIVE UP." PT AND WERE CLEARLY "INSULTED", RN EXPLAINED THAT WE ARE ALL HERE FOR HER IMPROVING AND THAT SHE DOES NEED TO GIVE HER UTMOST EFFORT TO IMPROVE. PT WAS ABLE TO FEED HERSELF WITH LEFT HAND, AND WAS ABLE TO, WITH ONE PERSON ASSIST, TO GET TO THE BEDSIDE, STAND AND PIVOT TO BSC AND BACK TO BED. SHE WAS ABLE TO SCOOT HERSELF UP TO PILLOW WITH MODERATE EFFORT. PT IS TURNED TO LEFT SIDE TO OFFLOAD SACRUM AND RIGHT SIDE ELEVATED ON PILLOWS, PT PANUS AND GROIN CLEANSED AND PLACED INTERDRY, BEDDING AND GOWN CHANGED. PT IS RESTING COMFORTABLY, PT IS GROGGY PER PRIOR ASSESSMENT, BG CHECK 208 AT HS, PT IMO WILL NEED EXTREME ENCOURAGEMENT TO PERFORM TO HER BEST ABILITY.
[2018-11-24 22:00] VITALS: BP 145/78
[2018-11-25] MEDS: HYDROcodone/acetaminophen 5mg/325mg tablet PO PRN (05:29)
[2018-11-25 06:00] VITALS: BP 155/93
--- NOTE | 2018-11-25 06:23 | NUR ---
REPORT GIVEN TO NIMISHA ORTIZ.
[2018-11-25 06:34] LABS: ALBUMIN 2.2 G/DL (3.4-5.0); ANION GAP 8 (8-16); BLOOD UREA NITROGEN 13 MG/DL (7-18); CALCIUM 8.3 MG/DL (8.5-10.1); CHLORIDE 103 MMOL/L (99-107); CREATININE 0.59 MG/DL (0.40-0.90); GLUCOSE 194 MG/DL (70-104); POTASSIUM 4.8 MMOL/L (3.5-5.1); SODIUM 135 MMOL/L (135-145); TOTAL CARBON DIOXIDE 23.9 MMOL/L (24-32); eGFR > 90 ML/MIN
[2018-11-25 08:05] VITALS: BP_SYST 155
[2018-11-25] MEDS: lisinopril 10 MG tablet PO SCH (08:05)
[2018-11-25] MEDS: aspirin 81mg tablet.DR PO SCH (08:06)
[2018-11-25] MEDS: atorvastatin 10mg tablet PO SCH (08:06)
[2018-11-25] MEDS: enoxaparin 40mg/0.4ml syringe SUBCUT SCH (08:09)
[2018-11-25 08:21] LABS: BASOPHILS # (AUTO) 0.1 X10'3 (0-0.2); BASOPHILS % (AUTO) 0.7 % (0-1); EOSINOPHILS # (AUTO) 0.2 X10'3 (0-0.9); EOSINOPHILS % (AUTO) 1.5 % (0-6); HEMATOCRIT 44.7 % (35.0-45.0); HEMOGLOBIN 14.8 g/dl (12.0-16.0); LYMPHOCYTES # (AUTO) 1.9 X10'3 (1.1-4.8); LYMPHOCYTES % (AUTO) 13.5 % (21-51); MEAN CORPUSCULAR HEMOGLOBIN 27.9 PG (27.0-31.0); MEAN CORPUSCULAR HGB CONC 33.2 g/dL (33.0-36.5); MONOCYTES # (AUTO) 0.8 X10'3 (0-0.9); MONOCYTES % (AUTO) 5.9 % (2-12); NEUTROPHILS # (AUTO) 11.1 X10'3 (1.8-7.7); NEUTROPHILS % (AUTO) 78.4 % (42-75); PLATELET COUNT 262 X10'3 (140-440); RED BLOOD COUNT 5.32 X10'6 (4.20-5.60); WHITE BLOOD COUNT 14.2 X10'3 (4.5-11.0)
[2018-11-25] MEDS: insulin Lispro (HumaLOG) vial - multi-dose SQ SCH (09:51)
--- NOTE | 2018-11-25 18:58 | NUR ---
DISCHARGE: pt signed all necessary documents and copies released to pt. donated for pt. Pt verbalized understanding of follow up & continuing to use strengthening exercises to become more self sufficient. Referrals given for facilities r/t addiction. pt escorted Yisel by [facility] staff, x2 security, spouse. [facility] staff & security will assist pt safely into personal RV/vehicle.
== END 2018-11-25 19:00 | disposition home or self-care (01) | DRG 45 ==
LOC: ER 15:30 → ORTHO 4S 21:33 → CMPBEDREQ 11-24 19:44
PROVIDERS: ADMIT Hospitalist; ATTEND Hospitalist
PROC: B3251ZZ Computerized Tomography (CT Scan) of Bilateral Common Carotid Arteries using Low Osmolar Contrast (ICD-10-PCS; principal; 2018-11-22)
PROC: B32G1ZZ Computerized Tomography (CT Scan) of Bilateral Vertebral Arteries using Low Osmolar Contrast (ICD-10-PCS; 2018-11-22)
PROC: B3281ZZ Computerized Tomography (CT Scan) of Bilateral Internal Carotid Arteries using Low Osmolar Contrast (ICD-10-PCS; 2018-11-22)
DX: I63.9 Cerebral infarction, unspecified (principal); E43 Unspecified severe protein-calorie malnutrition; E11.65 Type 2 diabetes mellitus with hyperglycemia; F15.10 Other stimulant abuse, uncomplicated; G47.30 Sleep apnea, unspecified; F32.9 Major depressive disorder, single episode, unspecified; G89.29 Other chronic pain; I10 Essential (primary) hypertension; J45.909 Unspecified asthma, uncomplicated; M19.90 Unspecified osteoarthritis, unspecified site; M54.9 Dorsalgia, unspecified; F17.210 Nicotine dependence, cigarettes, uncomplicated; M25.511 Pain in right shoulder; K21.9 Gastro-esophageal reflux disease without esophagitis; Z79.4 Long term (current) use of insulin; Z80.3 Family history of malignant neoplasm of breast; Z90.710 Acquired absence of both cervix and uterus; Z59.0 Homelessness; Z68.36 Body mass index [BMI] 36.0-36.9, adult; Z88.8 Allergy status to other drugs, medicaments and biological substances; Z88.2 Allergy status to sulfonamides; Z98.51 Tubal ligation status; Z71.51 Drug abuse counseling and surveillance of drug abuser
CPT/HCPCS: 36415; 70450; 70496; 70498; 71045; 72141; 80048; 80053; 80061; 80305; 80320; 81001; 81025; 82140; 82948; 83036; 84484; 85025; 85610; 85730; 87081; 92508; 92616; 93005; 93306; 93880; 96360; 97110; 97116; 97161; 97530; 99285; G0378; J1650; J1815; Q9967

== ENCOUNTER 2019-01-30 16:12 | Emergency (ER) | payer MEDICAID ==
[~2019-01-30] VITALS: Ht 157.5 cm; Wt 90.0 kg
[~2019-01-30 16:12] MED LIST changes: -ALBU8.5H8 IH; +ASPI-1265 PO; +CARV-50 PO; +FERR325T28 PO; +FURO-149 PO; +IRBE150T51 PO; -METF-438; -METH-360 PO; -NAPR-56 PO; +POTA20TA19 PO; +ROFL500T7 PO
[2019-01-30 16:44] VITALS: BP 158/91
== END 2019-01-30 17:44 | disposition home or self-care (01) ==
LOC: ER 16:12
DX: M79.671 Pain in right foot (principal); J45.909 Unspecified asthma, uncomplicated; K21.9 Gastro-esophageal reflux disease without esophagitis; E11.9 Type 2 diabetes mellitus without complications; M19.90 Unspecified osteoarthritis, unspecified site; G89.29 Other chronic pain; F15.90 Other stimulant use, unspecified, uncomplicated; Z59.0 Homelessness; Z90.710 Acquired absence of both cervix and uterus; Z98.890 Other specified postprocedural states; Z98.51 Tubal ligation status; Z79.899 Other long term (current) drug therapy; Z79.4 Long term (current) use of insulin; Z88.3 Allergy status to other anti-infective agents; Z88.2 Allergy status to sulfonamides; Z88.6 Allergy status to analgesic agent; Z79.82 Long term (current) use of aspirin
CPT/HCPCS: 73610; 93005; 99283

== ENCOUNTER 2019-02-06 08:37 | Day surgery (SDC) | payer MEDICAID ==
[2019-02-06] MEDS ORDERED: LIDOcaine/PRILOcaine 5gm cream TP ONE (09:23)
== END 2019-02-06 10:50 | disposition home or self-care (01) ==
LOC: WOUND CARE 08:37
PROVIDERS: ATTEND Surgery
DX: E11.621 Type 2 diabetes mellitus with foot ulcer (principal); L97.411 Non-pressure chronic ulcer of right heel and midfoot limited to breakdown of skin; E11.610 Type 2 diabetes mellitus with diabetic neuropathic arthropathy; K21.9 Gastro-esophageal reflux disease without esophagitis; G89.29 Other chronic pain; M19.90 Unspecified osteoarthritis, unspecified site; J45.909 Unspecified asthma, uncomplicated; F15.90 Other stimulant use, unspecified, uncomplicated; Z98.51 Tubal ligation status; Z79.82 Long term (current) use of aspirin; Z79.899 Other long term (current) drug therapy; Z98.890 Other specified postprocedural states; Z79.4 Long term (current) use of insulin; Z86.73 Personal history of transient ischemic attack (TIA), and cerebral infarction without residual deficits; Z90.710 Acquired absence of both cervix and uterus
CPT/HCPCS: 36416; 82948; 97597; A4649; A6234; A6446

== ENCOUNTER 2019-02-13 09:15 | Day surgery (SDC) | payer MEDICAID ==
[2019-02-13] MEDS ORDERED: LIDOcaine 2% 5ml jelly ONE (09:41)
== END 2019-02-13 10:40 | disposition home or self-care (01) ==
LOC: WOUND CARE 09:15
PROVIDERS: ATTEND Surgery
DX: E11.621 Type 2 diabetes mellitus with foot ulcer (principal); L97.412 Non-pressure chronic ulcer of right heel and midfoot with fat layer exposed; E11.610 Type 2 diabetes mellitus with diabetic neuropathic arthropathy; K21.9 Gastro-esophageal reflux disease without esophagitis; G89.29 Other chronic pain; M19.90 Unspecified osteoarthritis, unspecified site; J45.909 Unspecified asthma, uncomplicated; F15.90 Other stimulant use, unspecified, uncomplicated; Z98.51 Tubal ligation status; Z79.82 Long term (current) use of aspirin; Z79.899 Other long term (current) drug therapy; Z98.890 Other specified postprocedural states; Z79.4 Long term (current) use of insulin; Z86.73 Personal history of transient ischemic attack (TIA), and cerebral infarction without residual deficits; Z90.710 Acquired absence of both cervix and uterus
CPT/HCPCS: 11042; 36416; 82948; A6209; A4663; A6196; A6234; A6446

== ENCOUNTER 2019-02-20 10:25 | Day surgery (SDC) | payer MEDICAID ==
[2019-02-20] MEDS ORDERED: LIDOcaine 2% 5ml jelly ONE ×2 (11:00→12:06)
== END 2019-02-20 12:22 | disposition home or self-care (01) ==
LOC: WOUND CARE 10:25
PROVIDERS: ATTEND Surgery
DX: E11.621 Type 2 diabetes mellitus with foot ulcer (principal); L97.412 Non-pressure chronic ulcer of right heel and midfoot with fat layer exposed; E11.610 Type 2 diabetes mellitus with diabetic neuropathic arthropathy; K21.9 Gastro-esophageal reflux disease without esophagitis; G89.29 Other chronic pain; M19.90 Unspecified osteoarthritis, unspecified site; J45.909 Unspecified asthma, uncomplicated; F15.90 Other stimulant use, unspecified, uncomplicated; Z98.51 Tubal ligation status; Z79.82 Long term (current) use of aspirin; Z79.899 Other long term (current) drug therapy; Z98.890 Other specified postprocedural states; Z79.4 Long term (current) use of insulin; Z86.73 Personal history of transient ischemic attack (TIA), and cerebral infarction without residual deficits; Z90.710 Acquired absence of both cervix and uterus
CPT/HCPCS: 36416; 82948; 97597; A4663; A6021; A6196; A6446

== ENCOUNTER 2019-02-27 10:40 | Day surgery (SDC) | payer MEDICAID ==
[2019-02-27] MEDS ORDERED: LIDOcaine 2% 5ml jelly ONE (11:37)
== END 2019-02-27 12:08 | disposition home or self-care (01) ==
LOC: WOUND CARE 10:40
PROVIDERS: ATTEND Surgery
DX: E11.621 Type 2 diabetes mellitus with foot ulcer (principal); L97.411 Non-pressure chronic ulcer of right heel and midfoot limited to breakdown of skin; E11.610 Type 2 diabetes mellitus with diabetic neuropathic arthropathy; K21.9 Gastro-esophageal reflux disease without esophagitis; G89.29 Other chronic pain; M19.90 Unspecified osteoarthritis, unspecified site; J45.909 Unspecified asthma, uncomplicated; F15.90 Other stimulant use, unspecified, uncomplicated; Z98.51 Tubal ligation status; Z79.82 Long term (current) use of aspirin; Z79.899 Other long term (current) drug therapy; Z98.890 Other specified postprocedural states; Z79.4 Long term (current) use of insulin; Z86.73 Personal history of transient ischemic attack (TIA), and cerebral infarction without residual deficits; Z90.710 Acquired absence of both cervix and uterus
CPT/HCPCS: 36416; 82948; 97597; L3260; A4663; A6021; A6154

== ENCOUNTER 2019-03-09 10:30 | Day surgery (SDC) | payer MEDICAID ==
[2019-03-09] MEDS ORDERED: LIDOcaine 2% 5ml jelly ONE (11:15)
== END 2019-03-09 12:24 | disposition home or self-care (01) ==
LOC: WOUND CARE 10:30
PROVIDERS: ATTEND Surgery
DX: E11.621 Type 2 diabetes mellitus with foot ulcer (principal); L97.412 Non-pressure chronic ulcer of right heel and midfoot with fat layer exposed; E11.610 Type 2 diabetes mellitus with diabetic neuropathic arthropathy; K21.9 Gastro-esophageal reflux disease without esophagitis; G89.29 Other chronic pain; M19.90 Unspecified osteoarthritis, unspecified site; J45.909 Unspecified asthma, uncomplicated; F15.90 Other stimulant use, unspecified, uncomplicated; Z98.51 Tubal ligation status; Z79.82 Long term (current) use of aspirin; Z79.899 Other long term (current) drug therapy; Z98.890 Other specified postprocedural states; Z79.4 Long term (current) use of insulin; Z86.73 Personal history of transient ischemic attack (TIA), and cerebral infarction without residual deficits; Z90.710 Acquired absence of both cervix and uterus
CPT/HCPCS: 11042; 36416; 82948; L3260; A4663; A6021; A6196; A6446

== ENCOUNTER 2019-03-17 10:21 | Day surgery (SDC) | payer MEDICAID ==
[2019-03-17] MEDS ORDERED: LIDOcaine 2% 5ml jelly ONE (10:50)
== END 2019-03-17 11:59 | disposition home or self-care (01) ==
LOC: WOUND CARE 10:21
PROVIDERS: ATTEND Surgery
DX: E11.621 Type 2 diabetes mellitus with foot ulcer (principal); L97.412 Non-pressure chronic ulcer of right heel and midfoot with fat layer exposed; E11.610 Type 2 diabetes mellitus with diabetic neuropathic arthropathy; K21.9 Gastro-esophageal reflux disease without esophagitis; G89.29 Other chronic pain; M19.90 Unspecified osteoarthritis, unspecified site; J45.909 Unspecified asthma, uncomplicated; F15.90 Other stimulant use, unspecified, uncomplicated; Z98.51 Tubal ligation status; Z79.82 Long term (current) use of aspirin; Z79.899 Other long term (current) drug therapy; Z98.890 Other specified postprocedural states; Z79.4 Long term (current) use of insulin; Z86.73 Personal history of transient ischemic attack (TIA), and cerebral infarction without residual deficits; Z90.710 Acquired absence of both cervix and uterus
CPT/HCPCS: 36416; 82948; A4663; A6021; A6154; A6446

== ENCOUNTER 2019-03-31 09:23 | Emergency (ER) | payer MEDICAID ==
[~2019-03-31] VITALS: Ht 165.1 cm; Wt 81.8 kg
[2019-03-31 10:00] LABS: BASOPHILS # (AUTO) 0.2 X10'3 (0-0.2); BASOPHILS % (AUTO) 1.7 % (0-1); EOSINOPHILS # (AUTO) 0.3 X10'3 (0-0.9); EOSINOPHILS % (AUTO) 2.5 % (0-6); HEMATOCRIT 43.9 % (35.0-45.0); HEMOGLOBIN 14.7 g/dl (12.0-16.0); LYMPHOCYTES # (AUTO) 2.7 X10'3 (1.1-4.8); LYMPHOCYTES % (AUTO) 25.7 % (21-51); MEAN CORPUSCULAR HEMOGLOBIN 28.1 PG (27.0-31.0); MEAN CORPUSCULAR HGB CONC 33.6 g/dL (33.0-36.5); MEAN CORPUSCULAR VOLUME 83.7 FL (78-98); MEAN PLATELET VOLUME 8.3 FL (7.4-10.4); MONOCYTES # (AUTO) 0.6 X10'3 (0-0.9); MONOCYTES % (AUTO) 5.4 % (2-12); NEUTROPHILS # (AUTO) 6.8 X10'3 (1.8-7.7); NEUTROPHILS % (AUTO) 64.7 % (42-75); PLATELET COUNT 345 X10'3 (140-440); RED BLOOD COUNT 5.25 X10'6 (4.20-5.60); RED CELL DISTRIBUTION WIDTH 13.9 % (11.5-14.5); WHITE BLOOD COUNT 10.5 X10'3 (4.5-11.0)
[2019-03-31 10:15] LABS: ALANINE AMINOTRANSFERASE 24 U/L (12-78); ALBUMIN/GLOBULIN RATIO 0.6 (1.1-1.5); ALKALINE PHOSPHATASE 103 IU/L (46-116); ANION GAP 4 (8-16); ASPARTATE AMINO TRANSFERASE 16 U/L (10-37); BILIRUBIN,TOTAL 0.3 MG/DL (0.1-1.0); BLOOD UREA NITROGEN 14 MG/DL (7-18); BUN/CREATININE RATIO 17.1 (6.6-38.0); CHLORIDE 100 MMOL/L (99-107); CREATININE 0.82 MG/DL (0.40-0.90); GLUCOSE 257 MG/DL (70-104); POTASSIUM 3.6 MMOL/L (3.5-5.1); SODIUM 135 MMOL/L (135-145); TOTAL CARBON DIOXIDE 30.7 MMOL/L (24-32); TOTAL PROTEIN 8.1 G/DL (6.4-8.2); eGFR 72 ML/MIN
[2019-03-31] MEDS ORDERED: ringers solution, lacted 1,000 ML IV ONE (11:15)
[2019-03-31 12:25] LABS: CLARITY,URINE CLOUDY (Clear); COLOR,URINE YELLOW (Yellow); GLUCOSE, URINE 100 mg/dl (Neg); KETONES,URINE NEGATIVE (Neg); LEUKOCYTE ESTERASE ,URINE NEGATIVE (Neg); NITRITES, URINE POSITIVE (Neg); OCCULT BLOOD,URINE MODERATE (Neg); PROTEIN,URINE >=300 mg/dl (Neg)
[2019-03-31 12:31] LABS: UA COLLECTION TYPE STRAIGHT CATH
[2019-03-31 12:34] LABS: HYALINE CASTS 0-3 /LPF (NEGATIVE); MUCUS STRANDS MANY /LPF (Neg); SQUAMOUS EPITHELIAL CELL,UR FEW /LPF (FEW); TRANSITIONAL EPI CELLS,URINE FEW /HPF
[2019-03-31 12:35] LABS: BACTERIA,URINE 4+ /HPF (Neg); WBC CLUMPS,URINE FEW /HPF (NEGATIVE); WBC,URINE 50-100 /HPF (0-4)
[2019-03-31 12:58] VITALS: BP 134/78
[2019-03-31] MEDS ORDERED: CEPH-572 PO (13:36)
[2019-03-31] MEDS ORDERED: ibuprofen 200mg tablet PO ONE (13:55)
[2019-03-31] MEDS ORDERED: CefTRIAXone 1000mg IM Kit (w/lidocaine diluent) IM ONE (14:05)
[2019-04-01] MEDS ORDERED: CefTRIAXone 2gm/D5W 50ml 50 ML IV SCH (08:00)
== END 2019-03-31 14:26 | disposition home or self-care (01) ==
LOC: ER 09:24
DX: N39.0 Urinary tract infection, site not specified (principal); R42 Dizziness and giddiness; R00.0 Tachycardia, unspecified; K21.9 Gastro-esophageal reflux disease without esophagitis; E11.9 Type 2 diabetes mellitus without complications; M19.90 Unspecified osteoarthritis, unspecified site; G89.29 Other chronic pain; F15.90 Other stimulant use, unspecified, uncomplicated; Z86.73 Personal history of transient ischemic attack (TIA), and cerebral infarction without residual deficits; Z59.0 Homelessness; Z90.710 Acquired absence of both cervix and uterus; Z98.51 Tubal ligation status; Z98.890 Other specified postprocedural states; Z88.3 Allergy status to other anti-infective agents; Z88.2 Allergy status to sulfonamides; Z79.82 Long term (current) use of aspirin; Z79.4 Long term (current) use of insulin; Z79.899 Other long term (current) drug therapy
CPT/HCPCS: 36415; 71045; 80053; 81001; 84484; 85025; 87077; 87088; 87186; 93005; 96360; 96372; 99284; J0696; J7120

== ENCOUNTER 2019-04-17 09:28 | Day surgery (SDC) | payer MEDICAID ==
[2019-04-17] MEDS ORDERED: LIDOcaine 2% 5ml jelly ONE (10:52)
== END 2019-04-17 11:52 | disposition home or self-care (01) ==
LOC: WOUND CARE 09:28
PROVIDERS: ATTEND Nurse Practitioner
DX: E11.621 Type 2 diabetes mellitus with foot ulcer (principal); L97.412 Non-pressure chronic ulcer of right heel and midfoot with fat layer exposed; E11.610 Type 2 diabetes mellitus with diabetic neuropathic arthropathy; K21.9 Gastro-esophageal reflux disease without esophagitis; R00.0 Tachycardia, unspecified; M19.90 Unspecified osteoarthritis, unspecified site; J45.909 Unspecified asthma, uncomplicated; G89.29 Other chronic pain; F15.90 Other stimulant use, unspecified, uncomplicated; Z79.899 Other long term (current) drug therapy; Z79.4 Long term (current) use of insulin; Z79.82 Long term (current) use of aspirin; Z98.890 Other specified postprocedural states; Z90.710 Acquired absence of both cervix and uterus; Z87.440 Personal history of urinary (tract) infections; Z98.51 Tubal ligation status; Z86.73 Personal history of transient ischemic attack (TIA), and cerebral infarction without residual deficits
CPT/HCPCS: 11042; 36416; 82948; A6209; A4663; A6021; A6154; A6446

== ENCOUNTER 2019-05-03 19:46 | Emergency (ER) | payer MEDICAID ==
[~2019-05-03] VITALS: Ht 157.5 cm; Wt 90.0 kg
[2019-05-03 19:51] VITALS: BP 145/92
== END 2019-05-03 21:16 | disposition home or self-care (01) ==
LOC: ER 19:48
DX: E11.621 Type 2 diabetes mellitus with foot ulcer (principal); L97.419 Non-pressure chronic ulcer of right heel and midfoot with unspecified severity; Z59.0 Homelessness; J45.909 Unspecified asthma, uncomplicated; G47.30 Sleep apnea, unspecified; K21.9 Gastro-esophageal reflux disease without esophagitis; E11.9 Type 2 diabetes mellitus without complications; M19.90 Unspecified osteoarthritis, unspecified site; G89.29 Other chronic pain; F32.9 Major depressive disorder, single episode, unspecified; F15.90 Other stimulant use, unspecified, uncomplicated; F10.99 Alcohol use, unspecified with unspecified alcohol-induced disorder; Z90.710 Acquired absence of both cervix and uterus; Z98.890 Other specified postprocedural states; Z98.51 Tubal ligation status; Z86.73 Personal history of transient ischemic attack (TIA), and cerebral infarction without residual deficits; Z88.0 Allergy status to penicillin; Z88.2 Allergy status to sulfonamides; Z79.82 Long term (current) use of aspirin; Z79.899 Other long term (current) drug therapy; Z79.4 Long term (current) use of insulin; Y90.9 Presence of alcohol in blood, level not specified
CPT/HCPCS: 99284

== ENCOUNTER 2019-05-22 19:44 | Emergency (ER) | payer MEDICAID ==
[~2019-05-22] VITALS: Ht 157.5 cm; Wt 100.0 kg
[2019-05-22 19:55] VITALS: BP 150/92
[2019-05-22] MEDS ORDERED: ketorolac trometh. 30mg/ml inj. IM ONE (20:55)
[2019-05-22] MEDS ORDERED: acetaminophen 325mg tablet PO ONE (20:55)
[2019-05-22] MEDS ORDERED: ciprofloxacin 0.3% 2.5ml ophthalmic solution RIGHTEYE ONE (22:45)
[2019-05-22] MEDS ORDERED: CIPR2.5D18 RIGHTEYE (22:49)
== END 2019-05-22 23:59 | disposition home or self-care (01) ==
LOC: ER 19:44
DX: H10.9 Unspecified conjunctivitis (principal); R51 Headache; L02.413 Cutaneous abscess of right upper limb; F15.90 Other stimulant use, unspecified, uncomplicated; I10 Essential (primary) hypertension; J45.909 Unspecified asthma, uncomplicated; K21.9 Gastro-esophageal reflux disease without esophagitis; E11.9 Type 2 diabetes mellitus without complications; M19.90 Unspecified osteoarthritis, unspecified site; G89.29 Other chronic pain; Z59.0 Homelessness; Z98.890 Other specified postprocedural states; Z86.73 Personal history of transient ischemic attack (TIA), and cerebral infarction without residual deficits; Z90.49 Acquired absence of other specified parts of digestive tract; Z98.51 Tubal ligation status; Z88.3 Allergy status to other anti-infective agents; Z88.2 Allergy status to sulfonamides; Z79.82 Long term (current) use of aspirin
CPT/HCPCS: 96372; 99284; J1885

== ENCOUNTER 2019-05-24 15:24 | Inpatient (IN) | payer MEDICAID ==
[~2019-05-24] VITALS: Ht 157.5 cm; Wt 74.0 kg
[~2019-05-24 15:24] MED LIST changes: +CIPR2.5D18 RIGHTEYE
[2019-05-24] MEDS ORDERED: diphenhydrAMINE 25mg capsule PO ONE (16:40)
[2019-05-24] MEDS ORDERED: triamcinolone acetonide 40mg/ml inj IM ONE (16:40)
[2019-05-24 18:04] LABS: BASOPHILS # (AUTO) 0.1 X10'3 (0-0.2); BASOPHILS % (AUTO) 0.7 % (0-1); EOSINOPHILS # (AUTO) 0.4 X10'3 (0-0.9); EOSINOPHILS % (AUTO) 2.2 % (0-6); HEMATOCRIT 38.1 % (35.0-45.0); HEMOGLOBIN 12.7 g/dl (12.0-16.0); LYMPHOCYTES # (AUTO) 1.7 X10'3 (1.1-4.8); MEAN CORPUSCULAR HEMOGLOBIN 27.6 PG (27.0-31.0); MEAN CORPUSCULAR HGB CONC 33.4 g/dL (33.0-36.5); MEAN CORPUSCULAR VOLUME 82.6 FL (78-98); MEAN PLATELET VOLUME 8.4 FL (7.4-10.4); MONOCYTES # (AUTO) 1.3 X10'3 (0-0.9); MONOCYTES % (AUTO) 7.1 % (2-12); NEUTROPHILS # (AUTO) 15.2 X10'3 (1.8-7.7); PLATELET COUNT 370 X10'3 (140-440); RED BLOOD COUNT 4.61 X10'6 (4.20-5.60); RED CELL DISTRIBUTION WIDTH 13.6 % (11.5-14.5); WHITE BLOOD COUNT 18.8 X10'3 (4.5-11.0)
[2019-05-24 18:20] LABS: ALANINE AMINOTRANSFERASE 11 U/L (12-78); ALBUMIN 2.2 G/DL (3.4-5.0); ALBUMIN/GLOBULIN RATIO 0.4 (1.1-1.5); ALKALINE PHOSPHATASE 113 IU/L (46-116); ANION GAP 0 (8-16); ASPARTATE AMINO TRANSFERASE 12 U/L (10-37); BILIRUBIN,TOTAL 0.3 MG/DL (0.1-1.0); BLOOD UREA NITROGEN 15 MG/DL (7-18); BUN/CREATININE RATIO 17.9 (6.6-38.0); CALCIUM 8.8 MG/DL (8.5-10.1); CHLORIDE 102 MMOL/L (99-107); CREATININE 0.84 MG/DL (0.40-0.90); GLUCOSE 336 MG/DL (70-104); POTASSIUM 4.5 MMOL/L (3.5-5.1); SODIUM 136 MMOL/L (135-145); TOTAL CARBON DIOXIDE 34.3 MMOL/L (24-32); TOTAL PROTEIN 7.7 G/DL (6.4-8.2); eGFR 70 ML/MIN
[2019-05-24] MEDS ORDERED: iohexol 300mg/ml 100ml inj. ONE (18:49)
[2019-05-24] MEDS ORDERED: vancomycin/NS 1 GM ADD-VANTAGE 250 ML IV ONE (19:00)
[2019-05-24] MEDS ORDERED: piperacillin/tazo 3.375gm/50ml 50 ML IV ONE (19:00)
[2019-05-24] MEDS ORDERED: normal saline 1000ML IV soln IVB ONE (19:00)
--- NOTE | 2019-05-24 19:09 | NUR ---
PT VERY DROWSY DURING IV START ATTEMPTS, NOT COOPERATIVE WITH LIMB POSITIONING
[2019-05-24 20:32] LABS: CLARITY,URINE CLEAR (Clear); COLOR,URINE YELLOW (Yellow); GLUCOSE, URINE 500 mg/dl (Neg); KETONES,URINE NEGATIVE (Neg); LEUKOCYTE ESTERASE ,URINE NEGATIVE (Neg); NITRITES, URINE NEGATIVE (Neg); OCCULT BLOOD,URINE SMALL (Neg); PH,URINE 6.5 (4.8-8.0); PROTEIN,URINE 100 mg/dl (Neg); UROBILINOGEN,URINE 0.2 E.U/dL (0.2-1.0)
[2019-05-24 20:33] LABS: UA COLLECTION TYPE STRAIGHT CATH
[2019-05-24 20:44] LABS: BACTERIA,URINE NONE SEEN /HPF (Neg); SQUAMOUS EPITHELIAL CELL,UR FEW /LPF (FEW); WBC,URINE 0-4 /HPF (0-4)
[2019-05-24 20:45] LABS: MUCUS STRANDS NONE SEEN /LPF (Neg)
[2019-05-24] MEDS ORDERED: normal saline 1000ml 1,000 ML IV ONE (20:50)
[2019-05-24] MEDS ORDERED: ketorolac trometh. 30mg/ml inj. IV ONE (20:55)
--- NOTE | 2019-05-24 21:45 | NUR ---
COMPLETED MED REC WITH PT WAS TOO DROWSY TO HELP COMPLETE. PER PT , PT HAS BEEN GETTING HER MEDICATIONS FROM THE [facility]. PT HAS NOT FILLED ANY RX PER [facility]TER[facility] SINCE JANUARY 2019
[2019-05-25] MEDS: normal saline 1000ml 1,000 ML IV SCH ×3 (00:23→19:09)
[2019-05-25] MEDS ORDERED: ondansetron/PF 4mg/2ml inj IV PRN (00:25)
[2019-05-25] MEDS ORDERED: mag hydrox/Alum hydrox/simeth 30ml oral suspension PO PRN (00:25)
[2019-05-25] MEDS ORDERED: morphine 2 MG/ML inj. syringe IV PRN (00:25)
--- NOTE | 2019-05-25 01:30 | NUR ---
Received report from ORACLE ANALYST . Patient to arrive shortly.
--- NOTE | 2019-05-25 02:00 | NUR ---
Patient arrived to floor via w/c and situated into room 348. Noticed patient had no hair, and patient stated that she had her head shaved a week ago at the [facility] . Asked if patient had lice, and patient stated "yes". On further inspection, noticed nits to hair strands on head, none noted to groin.
[2019-05-25 02:10] VITALS: BP 128/74
--- NOTE | 2019-05-25 04:48 | NUR ---
Called MD for order for NIX as patient has nits and also to advise of blood sugar elevated at 493. Order to put on hyper/hypoglycemic protocol.
[2019-05-25] MEDS ORDERED: Permethrin 1% 59ml topical rinse TP ONE (04:55)
[2019-05-25] MEDS ORDERED: glucagon, human recombinant 1mg kit SUBCUT PRN (04:55)
[2019-05-25] MEDS ORDERED: dextrose 50%-water 50ml dispensing syringe IV PRN ×2 (04:55)
[2019-05-25] MEDS ORDERED: dextrose ORAL solution 15 GM/59 ML bottle PO PRN ×2 (04:55)
[2019-05-25] MEDS ORDERED: Permethrin Cream 60gm TP ONE (04:55)
[2019-05-25] MEDS ORDERED: MESSAGE TO PHARMACY PO ONE (04:55)
--- NOTE | 2019-05-25 05:00 | NUR ---
PATIENTS BLOOD SUGAR WAS HIGH AT 493. As so late in the shift, patient given half the amount of humalog required for that dose.
[2019-05-25] MEDS: insulin Lispro (HumaLOG) vial - multi-dose SQ SCH ×4 (05:16→19:00)
--- NOTE | 2019-05-25 06:20 | NUR ---
Problems reprioritized. Patient report given, questions answered & plan of care reviewed with Darlene BANSAL.
--- NOTE | 2019-05-25 06:49 | NUR ---
Patient in room EILEEN 348. I have received report from Graciela BANSAL and had the opportunity to ask questions and assume patient care.
[2019-05-25] MEDS: carVEDilol 12.5mg tablet PO SCH ×2 (07:44→19:05)
[2019-05-25] MEDS: aspirin 81mg tab.chew PO SCH (07:44)
[2019-05-25] MEDS: heparin, porcine 5000 units/ml vial SQ SCH ×2 (07:44→19:06)
[2019-05-25] MEDS: HYDROcodone/acetaminophen 5mg/325mg tablet PO PRN (07:45)
[2019-05-25] MEDS: moxifloxacin 0.5% ophthalmic drops 3ml EACHEYE SCH ×4 (07:45→19:06)
[2019-05-25] MEDS: vancomycin/NS 1 GM ADD-VANTAGE 250 ML IV SCH ×2 (07:45→19:06)
[2019-05-25 08:00] VITALS: BP 159/90
[2019-05-25] MEDS: piperacillin/tazo 3.375gm/50ml 50 ML IV SCH ×3 (09:34→22:55)
[2019-05-25 11:00] VITALS: BP 103/58
[2019-05-25 11:17] LABS: BASOPHILS # (AUTO) 0.1 X10'3 (0-0.2); BASOPHILS % (AUTO) 0.8 % (0-1); EOSINOPHILS # (AUTO) 0.4 X10'3 (0-0.9); EOSINOPHILS % (AUTO) 2.4 % (0-6); HEMOGLOBIN 10.3 g/dl (12.0-16.0); LYMPHOCYTES # (AUTO) 1.8 X10'3 (1.1-4.8); LYMPHOCYTES % (AUTO) 11.9 % (21-51); MEAN CORPUSCULAR HEMOGLOBIN 26.8 PG (27.0-31.0); MEAN CORPUSCULAR HGB CONC 32.4 g/dL (33.0-36.5); MEAN CORPUSCULAR VOLUME 82.7 FL (78-98); MEAN PLATELET VOLUME 8.5 FL (7.4-10.4); MONOCYTES # (AUTO) 1.1 X10'3 (0-0.9); NEUTROPHILS % (AUTO) 77.9 % (42-75); PLATELET COUNT 302 X10'3 (140-440); RED BLOOD COUNT 3.87 X10'6 (4.20-5.60); RED CELL DISTRIBUTION WIDTH 13.2 % (11.5-14.5); WHITE BLOOD COUNT 15.4 X10'3 (4.5-11.0)
[2019-05-25 11:50] LABS: ALANINE AMINOTRANSFERASE 7 U/L (12-78); ALBUMIN 1.6 G/DL (3.4-5.0); ALBUMIN/GLOBULIN RATIO 0.4 (1.1-1.5); ALKALINE PHOSPHATASE 86 IU/L (46-116); ANION GAP 5 (8-16); ASPARTATE AMINO TRANSFERASE 10 U/L (10-37); BILIRUBIN,TOTAL 0.1 MG/DL (0.1-1.0); BLOOD UREA NITROGEN 20 MG/DL (7-18); CALCIUM 7.9 MG/DL (8.5-10.1); CHLORIDE 108 MMOL/L (99-107); CREATININE 0.91 MG/DL (0.40-0.90); GLUCOSE 231 MG/DL (70-104); SODIUM 139 MMOL/L (135-145); TOTAL CARBON DIOXIDE 26.4 MMOL/L (24-32); TOTAL PROTEIN 5.9 G/DL (6.4-8.2); eGFR 64 ML/MIN
[2019-05-25] MEDS ORDERED: etomidate 2mg/ml inj. ONE (15:00)
[2019-05-25] MEDS ORDERED: sod chloride 0.9% 10ml flush syringe IV ONE (15:00)
--- NOTE | 2019-05-25 16:58 | NUR ---
DM consult, Hgb A1c is 8.7%; Noted that patient is fatigued, Patient needs written DM education handout with verbal review and referral to outpatient DM education class on Saturday morning. Per H&P patient presented to ED with swelling of face and eyes, CT showed right facial bilateral periorbital and bilateral frontal scalp subcutaneous soft tissue swelling and edema; admitted with scalp cellulitis, preseptal abscess, conjunctivitis, and sepsis. She ate 100% of breakfast and was not able to eat lunch. Will follow up with patient when less fatigued. Recommend: 1. continue carb controlled diet 2. provide written DM/high protein education handouts with verbal review 3. monitor need for additional protein 4. weight per rx Addendum: 05/25/19 at [address] Amended: Links added.
--- NOTE | 2019-05-25 18:30 | NUR ---
Problems reprioritized. Patient report given, questions answered & plan of care reviewed with NIMISHA Zee.
--- NOTE | 2019-05-25 18:38 | NUR ---
Patient in room EILEEN 348. I have received report from Liana BANSAL and had the opportunity to ask questions and assume patient care. Pt sitting up in bed eating dinner with and dog at bedside. Pt has no signs of distress, will continue to monitor.
[2019-05-25] MEDS: acetaminophen 325mg tablet PO PRN (19:10)
[2019-05-25 20:15] VITALS: BP 130/70
[2019-05-25 20:26] VITALS: BP 130/70
[2019-05-25] MEDS: insulin glargine (Lantus) pen - multi-dose SQ SCH (21:33)
[2019-05-26] VITALS: BP 114/65
[2019-05-26] MEDS: acetaminophen 325mg tablet PO PRN (04:08)
[2019-05-26] MEDS: normal saline 1000ml 1,000 ML IV SCH ×2 (06:23→16:57)
--- NOTE | 2019-05-26 06:32 | NUR ---
Problems reprioritized. Patient report given, questions answered & plan of care reviewed with Conchita BANSAL.
[2019-05-26] MEDS ORDERED: VANCOMYCIN LEVEL IV ONE (07:30)
[2019-05-26 08:00] VITALS: BP 131/74
[2019-05-26] MEDS: carVEDilol 12.5mg tablet PO SCH ×2 (08:36→19:12)
[2019-05-26] MEDS: heparin, porcine 5000 units/ml vial SQ SCH ×2 (08:37→19:11)
[2019-05-26] MEDS: moxifloxacin 0.5% ophthalmic drops 3ml EACHEYE SCH ×2 (08:37→19:11)
[2019-05-26] MEDS: aspirin 81mg tab.chew PO SCH (08:37)
[2019-05-26] MEDS: vancomycin/NS 1 GM ADD-VANTAGE 250 ML IV SCH (08:44)
[2019-05-26 09:10] LABS: BASOPHILS # (AUTO) 0.1 X10'3 (0-0.2); BASOPHILS % (AUTO) 0.8 % (0-1); EOSINOPHILS # (AUTO) 0.2 X10'3 (0-0.9); EOSINOPHILS % (AUTO) 1.6 % (0-6); HEMATOCRIT 29.8 % (35.0-45.0); HEMOGLOBIN 9.8 g/dl (12.0-16.0); LYMPHOCYTES # (AUTO) 1.8 X10'3 (1.1-4.8); LYMPHOCYTES % (AUTO) 12.6 % (21-51); MEAN CORPUSCULAR HEMOGLOBIN 27.1 PG (27.0-31.0); MEAN CORPUSCULAR VOLUME 82.2 FL (78-98); MEAN PLATELET VOLUME 8.5 FL (7.4-10.4); MONOCYTES # (AUTO) 0.8 X10'3 (0-0.9); MONOCYTES % (AUTO) 5.9 % (2-12); NEUTROPHILS # (AUTO) 11.1 X10'3 (1.8-7.7); NEUTROPHILS % (AUTO) 79.1 % (42-75); PLATELET COUNT 310 X10'3 (140-440); RED BLOOD COUNT 3.63 X10'6 (4.20-5.60); RED CELL DISTRIBUTION WIDTH 13.6 % (11.5-14.5)
[2019-05-26 09:15] LABS: ALBUMIN 1.6 G/DL (3.4-5.0); ANION GAP 5 (8-16); BLOOD UREA NITROGEN 20 MG/DL (7-18); CALCIUM 8.2 MG/DL (8.5-10.1); CHLORIDE 106 MMOL/L (99-107); CREATININE 0.91 MG/DL (0.40-0.90); GLUCOSE 209 MG/DL (70-104); POTASSIUM 4.1 MMOL/L (3.5-5.1); SODIUM 137 MMOL/L (135-145); TOTAL CARBON DIOXIDE 25.7 MMOL/L (24-32); VANCOMYCIN,TROUGH 10.5 UG/ML (6.0-14.0); eGFR 64 ML/MIN
[2019-05-26] MEDS: piperacillin/tazo 3.375gm/50ml 50 ML IV SCH ×2 (10:03→16:12)
[2019-05-26] MEDS: insulin Lispro (HumaLOG) vial - multi-dose SQ SCH ×3 (10:18→19:16)
[2019-05-26] MEDS: HYDROcodone/acetaminophen 5mg/325mg tablet PO PRN ×2 (10:19→19:12)
--- NOTE | 2019-05-26 11:25 | NUR ---
F/u for DM consult: Pt remains fatigued and A/O x 3. Written protein and DM education with referral to outpatient DM class and RD contact information mailed to patient's home address found in EMR. Pt and SO previously seen by RD in November of last year with A1c 11.3 and provided with written and verbal education. Patient's PO intake back up to 100% at dinner last night. D/w dietary to send double protein TID for increased protein needs. LBM 2/6. D/w dietary to send power pudding with next meal. Will continue to follow. DM consult, Hgb A1c is 8.7%; Noted that patient is fatigued, Patient needs written DM education handout with verbal review and referral to outpatient DM education class on Saturday morning. Per H&P patient presented to ED with swelling of face and eyes, CT showed right facial bilateral periorbital and bilateral frontal scalp subcutaneous soft tissue swelling and edema; admitted with scalp cellulitis, preseptal abscess, conjunctivitis, and sepsis. She ate 100% of breakfast and was not able to eat lunch. Will follow up with patient when less fatigued. Recommend: 1. continue carb controlled diet 2. monitor need for verbal f/u DM/high protein education 3. double eggs q breakfast; double meat BIDLD 4. routine bowel care 5. weight per rx Addendum: 05/26/19 at [address] Amended: Links added.
[2019-05-26] MEDS ORDERED: sod chloride 0.9% 10ml flush syringe IV ONE (15:00)
[2019-05-26] MEDS ORDERED: epiNEPHrine 0.1mg/ml 10ml syringe ONE (15:00)
[2019-05-26] MEDS ORDERED: atropine 0.1mg/ml 10ml syringe ONE (15:00)
[2019-05-26] MEDS: magnesium hydroxide 30ml (MOM) UD suspension PO PRN (16:13)
--- NOTE | 2019-05-26 16:57 | NUR ---
PAGER ID: [phone] MESSAGE: Ana Dye [id number] Pt. has pitting generalized edema- still want on NS @100? yeasty rash under bilat breasts - nystatin? Conchita rubalcava
--- NOTE | 2019-05-26 18:52 | NUR ---
Gave report to Saadia BANSAL.
[2019-05-26] MEDS: lactobacillus rhamnosus 10,000 MMU CELLS/CAPSULE PO SCH (19:12)
[2019-05-26] MEDS ORDERED: VANCOmycin 1250MG/NS 250ml Bag 250 ML IV SCH (20:00)
[2019-05-26 20:50] VITALS: BP 144/74
[2019-05-26] MEDS: nystatin 15 GM powder TP SCH (21:25)
[2019-05-26] MEDS: insulin glargine (Lantus) pen - multi-dose SQ SCH (21:39)
[2019-05-27] VITALS (15 sets, daily range): BP systolic 102–176; BP diastolic 59–92
--- NOTE | 2019-05-27 06:09 | NUR ---
Problems reprioritized. Patient report given, questions answered & plan of care reviewed with Conchita BANSAL.
[2019-05-27 06:30] LABS: ALBUMIN 1.7 G/DL (3.4-5.0); ANION GAP 6 (8-16); BLOOD UREA NITROGEN 25 MG/DL (7-18); BUN/CREATININE RATIO 28.4 (6.6-38.0); CALCIUM 8.3 MG/DL (8.5-10.1); CHLORIDE 105 MMOL/L (99-107); CREATININE 0.88 MG/DL (0.40-0.90); GLUCOSE 216 MG/DL (70-104); POTASSIUM 4.5 MMOL/L (3.5-5.1); SODIUM 137 MMOL/L (135-145); TOTAL CARBON DIOXIDE 25.9 MMOL/L (24-32); eGFR 67 ML/MIN
[2019-05-27 06:32] LABS: BASOPHILS # (AUTO) 0.1 X10'3 (0-0.2); BASOPHILS % (AUTO) 0.8 % (0-1); EOSINOPHILS # (AUTO) 0.2 X10'3 (0-0.9); EOSINOPHILS % (AUTO) 1.6 % (0-6); HEMATOCRIT 30.2 % (35.0-45.0); HEMOGLOBIN 9.9 g/dl (12.0-16.0); LYMPHOCYTES # (AUTO) 1.7 X10'3 (1.1-4.8); LYMPHOCYTES % (AUTO) 13.4 % (21-51); MEAN CORPUSCULAR HEMOGLOBIN 27.3 PG (27.0-31.0); MEAN CORPUSCULAR HGB CONC 32.9 g/dL (33.0-36.5); MEAN CORPUSCULAR VOLUME 82.9 FL (78-98); MEAN PLATELET VOLUME 8.6 FL (7.4-10.4); MONOCYTES # (AUTO) 0.8 X10'3 (0-0.9); MONOCYTES % (AUTO) 6.4 % (2-12); NEUTROPHILS # (AUTO) 10.2 X10'3 (1.8-7.7); NEUTROPHILS % (AUTO) 77.8 % (42-75); PLATELET COUNT 323 X10'3 (140-440); RED BLOOD COUNT 3.64 X10'6 (4.20-5.60); RED CELL DISTRIBUTION WIDTH 13.6 % (11.5-14.5); WHITE BLOOD COUNT 13.1 X10'3 (4.5-11.0)
[2019-05-27] MEDS: CefTRIAXone/D5W-Rocephin 1gm 50 ML IV SCH (10:00)
[2019-05-27] MEDS: aspirin 81mg tab.chew PO SCH (10:01)
[2019-05-27] MEDS: HYDROcodone/acetaminophen 5mg/325mg tablet PO PRN (10:01)
[2019-05-27] MEDS: moxifloxacin 0.5% ophthalmic drops 3ml EACHEYE SCH ×2 (10:01→21:36)
[2019-05-27] MEDS: heparin, porcine 5000 units/ml vial SQ SCH ×3 (10:02→21:37)
[2019-05-27] MEDS: lactobacillus rhamnosus 10,000 MMU CELLS/CAPSULE PO SCH ×2 (10:02→21:37)
[2019-05-27] MEDS: nystatin 15 GM powder TP SCH ×3 (10:03→21:42)
[2019-05-27] MEDS: carVEDilol 12.5mg tablet PO SCH ×2 (10:03→21:37)
[2019-05-27] MEDS: insulin Lispro (HumaLOG) vial - multi-dose SQ SCH ×2 (10:10→21:52)
--- NOTE | 2019-05-27 13:00 | NUR ---
This RN was rounding on a different pt. when a co-RN notified this RN that pt. was choking. Immediately went to room to assess pt. Another staff member notified electrical discharge machine operator. Pt. coughing and gasping with food in front of her, sitting upright in w/c. electronic warfare linguist directed to obtain suction equipment. Obtained suction equipment, attempted to take vitals with Pt. rapidly moving her arms. 02 applied. Rapid called. Multiple staff members came to assess pt. Flavio performed 3 times and not effective. electronic warfare linguist assessing oral cavity for subject matter and using a Yankauer to suction. Deep throat suction also used with no result. Dr. Quiroz and Dr. Burnham both present. Crash cart obtained. Pt.'s SA02 42% with cyanotic lips and quieted gasps. Patient moved to bed. Code called. While intubating pt. MD Quiroz removed large unchewed piece of chicken from pt's throat. Pt. intubated and bagged. No pulse on pt. Doppler used. CPR started and Epi given per MD Quiroz's orders while CPR performed. Pt. on monitor during code. Pulse obtained. Pt. transferred to ICU.
--- NOTE | 2019-05-27 13:30 | NUR ---
pt arrived to ICU via hospital bed; VSS, pt intubated. 2RN skin check performed with Barry BANSAL.
[2019-05-27] MEDS ORDERED: midazolam 100mg in NS 100ml 100 ML IV PRN (13:45)
[2019-05-27] MEDS ORDERED: fentaNYL/PF 50MCG/1 ML 2ML syringe IV PRN (13:45)
[2019-05-27] MEDS ORDERED: FENTANYL-0.9 % NACL/PF 100 ML IV PRN (13:45)
[2019-05-27] MEDS ORDERED: midazolam 2 mg/2 ml injection IV ONE (13:45)
--- NOTE | 2019-05-27 14:01 | NUR ---
Several attempts made to contact at [phone] Number given by Pt father Father made of aware of transfer to ICU and Intubation
[2019-05-27 14:45] LABS: ABG BASE EXCESS -0.7 mmol/L (-2.0-3.0); ABG HCO3 24.3 mmol/L (22.0-26.0); ABG OXYGEN SATURATION 99.5 % (95-98); ABG PCO2 (T) 41.7 mmHg (35.0-45.0); ABG PH (T) 7.384 (7.350-7.450); ABG PO2 (T) 361.1 mmHg (83-108); FCOHb 0.3 % (0.5-1.5); FMetHb 0.1 % (0.3-1.12); FO2Hb 99.1 % (94-100); PEEP 5 cm H2O; RESPIRATORY RATE 12 b/min; TIDAL VOLUME 400 mL; TOTAL HEMOGLOBIN 10.9 G/dl (12.0-16.0)
[2019-05-27] MEDS ORDERED: calcium chloride 100 MG/1 ML inj IV ONE (15:00)
[2019-05-27] MEDS ORDERED: PROCAINAMIDE 500 MG/ML ONE (15:00)
[2019-05-27] MEDS ORDERED: epiNEPHrine 1 mg/ml 30ml MDV ONE (15:00)
[2019-05-27] MEDS ORDERED: acetaminophen 325mg tablet PO PRN (15:25)
[2019-05-27 16:42] LABS: ALANINE AMINOTRANSFERASE 17 U/L (12-78); ALBUMIN 1.8 G/DL (3.4-5.0); ALBUMIN/GLOBULIN RATIO 0.3 (1.1-1.5); ALKALINE PHOSPHATASE 137 IU/L (46-116); ANION GAP 7 (8-16); ASPARTATE AMINO TRANSFERASE 27 U/L (10-37); BILIRUBIN,TOTAL 0.2 MG/DL (0.1-1.0); BLOOD UREA NITROGEN 25 MG/DL (7-18); BUN/CREATININE RATIO 26.9 (6.6-38.0); CALCIUM 8.6 MG/DL (8.5-10.1); CHLORIDE 103 MMOL/L (99-107); CREATININE 0.93 MG/DL (0.40-0.90); GLUCOSE 250 MG/DL (70-104); MAGNESIUM 1.9 MG/DL (1.5-2.4); POTASSIUM 4.8 MMOL/L (3.5-5.1); SODIUM 136 MMOL/L (135-145); TOTAL PROTEIN 7.1 G/DL (6.4-8.2); eGFR 63 ML/MIN
--- NOTE | 2019-05-27 18:19 | NUR ---
Patient report given, questions answered & plan of care reviewed with Loreta BANSAL.
--- NOTE | 2019-05-27 20:00 | NUR ---
STILL VERY SLEEPY BUT AWAKEN EASILY
[2019-05-27] MEDS ORDERED: insulin regular, human U-100 3ml vial - multi-dose SQ SCH (20:40)
[2019-05-27] MEDS: insulin glargine (Lantus) pen - multi-dose SQ SCH (21:47)
[2019-05-28] VITALS (19 sets, daily range): BP systolic 90–141; BP diastolic 52–70
--- NOTE | 2019-05-28 06:10 | NUR ---
AWAKEN BUT NOT STAYING AWAKE
--- NOTE | 2019-05-28 06:45 | NUR ---
received report on this patient
[2019-05-28] MEDS ORDERED: VANCOMYCIN LEVEL IV ONE (07:30)
[2019-05-28] MEDS: heparin, porcine 5000 units/ml vial SQ SCH ×3 (08:00→20:45)
[2019-05-28] MEDS: HYDROcodone/acetaminophen 5mg/325mg tablet PO PRN (08:33)
[2019-05-28] MEDS: aspirin 81mg tab.chew PO SCH (08:34)
[2019-05-28] MEDS: carVEDilol 12.5mg tablet PO SCH ×2 (08:34→20:48)
[2019-05-28] MEDS: lactobacillus rhamnosus 10,000 MMU CELLS/CAPSULE PO SCH ×2 (08:34→20:45)
[2019-05-28] MEDS: CefTRIAXone/D5W-Rocephin 1gm 50 ML IV SCH (08:35)
[2019-05-28] MEDS: moxifloxacin 0.5% ophthalmic drops 3ml EACHEYE SCH ×2 (08:35→20:00)
[2019-05-28] MEDS: nystatin 15 GM powder TP SCH ×2 (08:36→20:45)
[2019-05-28 08:57] LABS: BASOPHILS # (AUTO) 0.1 X10'3 (0-0.2); EOSINOPHILS # (AUTO) 0.2 X10'3 (0-0.9); MONOCYTES # (AUTO) 1.1 X10'3 (0-0.9)
[2019-05-28 09:02] LABS: BASOPHILS % (AUTO) 0.8 % (0-1); EOSINOPHILS % (AUTO) 1.3 % (0-6); HEMOGLOBIN 10.8 g/dl (12.0-16.0); LYMPHOCYTES # (AUTO) 1.9 X10'3 (1.1-4.8); LYMPHOCYTES % (AUTO) 11.7 % (21-51); MEAN CORPUSCULAR HEMOGLOBIN 26.8 PG (27.0-31.0); MEAN CORPUSCULAR HGB CONC 32.7 g/dL (33.0-36.5); MEAN CORPUSCULAR VOLUME 81.9 FL (78-98); MEAN PLATELET VOLUME 8.8 FL (7.4-10.4); MONOCYTES % (AUTO) 7.1 % (2-12); NEUTROPHILS # (AUTO) 12.8 X10'3 (1.8-7.7); NEUTROPHILS % (AUTO) 79.1 % (42-75); PLATELET COUNT 332 X10'3 (140-440); RED BLOOD COUNT 4.03 X10'6 (4.20-5.60); RED CELL DISTRIBUTION WIDTH 13.6 % (11.5-14.5); WHITE BLOOD COUNT 16.2 X10'3 (4.5-11.0)
[2019-05-28 09:05] LABS: ALANINE AMINOTRANSFERASE 10 U/L (12-78); ALBUMIN 1.7 G/DL (3.4-5.0); ALBUMIN/GLOBULIN RATIO 0.3 (1.1-1.5); ALKALINE PHOSPHATASE 114 IU/L (46-116); ANION GAP 8 (8-16); ASPARTATE AMINO TRANSFERASE 18 U/L (10-37); BILIRUBIN,TOTAL 0.2 MG/DL (0.1-1.0); BLOOD UREA NITROGEN 22 MG/DL (7-18); BUN/CREATININE RATIO 28.6 (6.6-38.0); CALCIUM 8.6 MG/DL (8.5-10.1); CHLORIDE 104 MMOL/L (99-107); CREATININE 0.77 MG/DL (0.40-0.90); GLUCOSE 117 MG/DL (70-104); MAGNESIUM 1.8 MG/DL (1.5-2.4); PHOSPHORUS 4.4 MG/DL (2.3-4.5); POTASSIUM 4.3 MMOL/L (3.5-5.1); SODIUM 137 MMOL/L (135-145); TOTAL CARBON DIOXIDE 25.4 MMOL/L (24-32); TOTAL PROTEIN 6.9 G/DL (6.4-8.2); VANCOMYCIN,TROUGH 5.7 UG/ML (6.0-14.0); eGFR 78 ML/MIN
[2019-05-28 09:45] LABS: PARTIAL THROMBOPLASTIN TIME 23 SECONDS (22-32)
--- NOTE | 2019-05-28 12:38 | NUR ---
removed NG per Gabriella
--- NOTE | 2019-05-28 13:44 | NUR ---
Reassessment: Patient rapid response yesterday after choking on large piece of chicken, was intubated and extubated same day. After RD review of past admissions found that patient had been admitted last November with a stroke, documented as edentulous, and BSS performed with ST recommending pureed foods and nectar thick liquids. This current admission patient no documentation as edentulous, was eating 75-100% of carb controlled diet with no texture modification. Discussed above with RN and recommend BSS after extubation. BSS done this morning, ST recommends pureed foods and thin liquids. Eating 50% of meals today. Will continue to follow. Recommend: 1. continue carb controlled, pureed diet with thin liquids per ST recs 2. monitor need for verbal f/u DM/high protein education 3. double eggs with breakfast; double meat BIDLD 4. routine bowel care 5. weight per rx Addendum: 05/28/19 at [address] Amended: Links added.
[2019-05-28] MEDS: mineral oil/petrolatum ophthal oint EACHEYE SCH ×2 (14:00→20:00)
[2019-05-28] MEDS: insulin Lispro (HumaLOG) vial - multi-dose SQ SCH (15:55)
--- NOTE | 2019-05-28 18:09 | NUR ---
Problems reprioritized. Patient report given, questions answered & plan of care reviewed with NIMISHA King, patient not up yet during report.
--- NOTE | 2019-05-28 18:10 | NUR ---
transferred patient to PCU gave report to edna BANSAL
--- NOTE | 2019-05-28 19:10 | NUR ---
Patient in room PCU 3022. I have received report from NIMISHA Salas and had the opportunity to ask questions and assume patient care.
[2019-05-28] MEDS: morphine 2 MG/ML inj. syringe IV PRN (20:34)
[2019-05-28] MEDS: insulin glargine (Lantus) pen - multi-dose SQ SCH (22:42)
[2019-05-29] MEDS: LORazepam 1 MG tablet PO PRN (01:26)
[2019-05-29] MEDS: morphine 2 MG/ML inj. syringe IV PRN (01:26)
[2019-05-29] MEDS: mineral oil/petrolatum ophthal oint EACHEYE SCH ×3 (02:00→08:56)
[2019-05-29 06:00] VITALS: BP 124/68
[2019-05-29 06:31] LABS: PARTIAL THROMBOPLASTIN TIME 26 SECONDS (22-32)
[2019-05-29 06:32] LABS: BASOPHILS # (AUTO) 0.1 X10'3 (0-0.2); BASOPHILS % (AUTO) 0.8 % (0-1); EOSINOPHILS # (AUTO) 0.3 X10'3 (0-0.9); EOSINOPHILS % (AUTO) 2.4 % (0-6); HEMATOCRIT 30.5 % (35.0-45.0); HEMOGLOBIN 10.1 g/dl (12.0-16.0); LYMPHOCYTES # (AUTO) 2.2 X10'3 (1.1-4.8); LYMPHOCYTES % (AUTO) 17.5 % (21-51); MEAN CORPUSCULAR HGB CONC 33.1 g/dL (33.0-36.5); MEAN CORPUSCULAR VOLUME 81.5 FL (78-98); MEAN PLATELET VOLUME 8.1 FL (7.4-10.4); MONOCYTES % (AUTO) 8.4 % (2-12); NEUTROPHILS # (AUTO) 8.8 X10'3 (1.8-7.7); NEUTROPHILS % (AUTO) 70.9 % (42-75); PLATELET COUNT 348 X10'3 (140-440); RED BLOOD COUNT 3.75 X10'6 (4.20-5.60); WHITE BLOOD COUNT 12.4 X10'3 (4.5-11.0)
--- NOTE | 2019-05-29 06:32 | NUR ---
Problems reprioritized. Patient report given, questions answered & plan of care reviewed with Nayeli Cabezas RN. Patient stable at shift change
[2019-05-29 06:40] LABS: ALANINE AMINOTRANSFERASE 13 U/L (12-78); ALBUMIN 1.7 G/DL (3.4-5.0); ALBUMIN/GLOBULIN RATIO 0.3 (1.1-1.5); ALKALINE PHOSPHATASE 98 IU/L (46-116); ANION GAP 4 (8-16); ASPARTATE AMINO TRANSFERASE 15 U/L (10-37); BILIRUBIN,TOTAL 0.2 MG/DL (0.1-1.0); BLOOD UREA NITROGEN 20 MG/DL (7-18); BUN/CREATININE RATIO 23.8 (6.6-38.0); CALCIUM 8.3 MG/DL (8.5-10.1); CHLORIDE 103 MMOL/L (99-107); CREATININE 0.84 MG/DL (0.40-0.90); GLUCOSE 184 MG/DL (70-104); MAGNESIUM 1.7 MG/DL (1.5-2.4); PHOSPHORUS 3.9 MG/DL (2.3-4.5); POTASSIUM 4.5 MMOL/L (3.5-5.1); SODIUM 135 MMOL/L (135-145); TOTAL CARBON DIOXIDE 27.8 MMOL/L (24-32); TOTAL PROTEIN 6.7 G/DL (6.4-8.2); eGFR 70 ML/MIN
--- NOTE | 2019-05-29 06:41 | NUR ---
Patient in room PCU 3022. I have received report from Fernando BANSAL and had the opportunity to ask questions and assume patient care.
[2019-05-29] MEDS: insulin Lispro (HumaLOG) vial - multi-dose SQ SCH ×2 (08:52→13:59)
[2019-05-29] MEDS: CefTRIAXone/D5W-Rocephin 1gm 50 ML IV SCH (08:53)
[2019-05-29] MEDS: heparin, porcine 5000 units/ml vial SQ SCH ×2 (08:54→21:08)
[2019-05-29] MEDS: lactobacillus rhamnosus 10,000 MMU CELLS/CAPSULE PO SCH ×2 (08:55→21:07)
[2019-05-29] MEDS: carVEDilol 12.5mg tablet PO SCH ×2 (08:55→21:07)
[2019-05-29] MEDS: aspirin 81mg tab.chew PO SCH (08:55)
[2019-05-29] MEDS: moxifloxacin 0.5% ophthalmic drops 3ml EACHEYE SCH ×2 (08:56→21:09)
[2019-05-29] MEDS: nystatin 15 GM powder TP SCH ×2 (08:57→21:08)
[2019-05-29] MEDS: HYDROcodone/acetaminophen 5mg/325mg tablet PO PRN ×2 (09:08→21:08)
[2019-05-29 11:00] VITALS: BP 111/58
[2019-05-29] MEDS: vancomycin/NS 1 GM ADD-VANTAGE 250 ML IV SCH (13:57)
[2019-05-29] MEDS: magnesium hydroxide 30ml (MOM) UD suspension PO PRN (15:57)
--- NOTE | 2019-05-29 16:20 | NUR ---
Reassessment: Continues with pureed diet per ST recommendations. S/p rapid response, intubation and extubation after choking on piece of chicken, had no texture modifications. Per MD note obsessively asking for food. Noted a decline in PO intake from 75-100% to 50-74% likely r/t recovery from intubation. Will continue to follow. Recommend: 1. continue carb controlled, pureed diet with thin liquids per ST recs 2. monitor need for verbal f/u DM/high protein education 3. double eggs with breakfast; double meat BIDLD 4. routine bowel care 5. weight per rx Addendum: 05/29/19 at [address] Amended: Links added.
[2019-05-29] MEDS ORDERED: iohexol 300mg/ml 100ml inj. ONE (17:22)
--- NOTE | 2019-05-29 18:02 | NUR ---
Problems reprioritized. Patient report given, questions answered & plan of care reviewed with NIMISHA King. Patient currently at CT
--- NOTE | 2019-05-29 18:02 | NUR ---
Patient in room PCU 3022. I have received report from Nayeli Cabezas RN and had the opportunity to ask questions and assume patient care. Patient at CT.
[2019-05-29] MEDS: Melatonin 3mg tablet PO SCH (21:06)
[2019-05-29 22:00] VITALS: BP 117/67
[2019-05-29] MEDS: insulin glargine (Lantus) pen - multi-dose SQ SCH (22:48)
[2019-05-30] MEDS: LORazepam 1 MG tablet PO PRN ×2 (00:23→21:27)
[2019-05-30] MEDS: HYDROcodone/acetaminophen 5mg/325mg tablet PO PRN ×3 (01:50→18:00)
[2019-05-30] MEDS: vancomycin/NS 1 GM ADD-VANTAGE 250 ML IV SCH ×2 (01:51→14:07)
[2019-05-30 02:00] VITALS: BP 104/63
[2019-05-30 05:53] LABS: BASOPHILS # (AUTO) 0.1 X10'3 (0-0.2); BASOPHILS % (AUTO) 0.6 % (0-1); EOSINOPHILS # (AUTO) 0.3 X10'3 (0-0.9); EOSINOPHILS % (AUTO) 2.7 % (0-6); HEMATOCRIT 29.2 % (35.0-45.0); HEMOGLOBIN 9.6 g/dl (12.0-16.0); LYMPHOCYTES # (AUTO) 1.9 X10'3 (1.1-4.8); LYMPHOCYTES % (AUTO) 15.7 % (21-51); MEAN CORPUSCULAR HEMOGLOBIN 26.8 PG (27.0-31.0); MEAN CORPUSCULAR HGB CONC 32.9 g/dL (33.0-36.5); MEAN CORPUSCULAR VOLUME 81.5 FL (78-98); MEAN PLATELET VOLUME 8.1 FL (7.4-10.4); MONOCYTES # (AUTO) 1.1 X10'3 (0-0.9); MONOCYTES % (AUTO) 8.8 % (2-12); NEUTROPHILS # (AUTO) 8.7 X10'3 (1.8-7.7); NEUTROPHILS % (AUTO) 72.2 % (42-75); PLATELET COUNT 340 X10'3 (140-440); RED BLOOD COUNT 3.58 X10'6 (4.20-5.60); RED CELL DISTRIBUTION WIDTH 13.6 % (11.5-14.5)
[2019-05-30 06:00] VITALS: BP 117/71
[2019-05-30 06:05] LABS: PARTIAL THROMBOPLASTIN TIME 26 SECONDS (22-32)
[2019-05-30 06:16] LABS: ALANINE AMINOTRANSFERASE 12 U/L (12-78); ALBUMIN 1.6 G/DL (3.4-5.0); ALBUMIN/GLOBULIN RATIO 0.3 (1.1-1.5); ALKALINE PHOSPHATASE 89 IU/L (46-116); ASPARTATE AMINO TRANSFERASE 13 U/L (10-37); BILIRUBIN,TOTAL 0.1 MG/DL (0.1-1.0); BLOOD UREA NITROGEN 21 MG/DL (7-18); BUN/CREATININE RATIO 25.6 (6.6-38.0); CALCIUM 8.1 MG/DL (8.5-10.1); CREATININE 0.82 MG/DL (0.40-0.90); GLUCOSE 169 MG/DL (70-104); MAGNESIUM 1.9 MG/DL (1.5-2.4); PHOSPHORUS 4.3 MG/DL (2.3-4.5); POTASSIUM 4.9 MMOL/L (3.5-5.1); SODIUM 135 MMOL/L (135-145); TOTAL PROTEIN 6.6 G/DL (6.4-8.2); eGFR 72 ML/MIN
--- NOTE | 2019-05-30 06:18 | NUR ---
Problems reprioritized. Patient report given, questions answered & plan of care reviewed with NIMISHA Morris. Patient stable at shift change
--- NOTE | 2019-05-30 06:20 | NUR ---
Patient in room PCU 3022. I have received report from NIMISHA King and had the opportunity to ask questions and assume patient care.
[2019-05-30 06:27] LABS: ANION GAP 3 (8-16); CHLORIDE 102 MMOL/L (99-107); TOTAL CARBON DIOXIDE 29.8 MMOL/L (24-32)
[2019-05-30] MEDS: carVEDilol 12.5mg tablet PO SCH ×2 (08:00→19:37)
[2019-05-30] MEDS: aspirin 81mg tab.chew PO SCH (08:00)
[2019-05-30] MEDS: lactobacillus rhamnosus 10,000 MMU CELLS/CAPSULE PO SCH ×2 (08:00→19:37)
[2019-05-30] MEDS: heparin, porcine 5000 units/ml vial SQ SCH ×2 (08:00→19:37)
[2019-05-30] MEDS: moxifloxacin 0.5% ophthalmic drops 3ml EACHEYE SCH ×2 (08:00→19:37)
[2019-05-30] MEDS: insulin Lispro (HumaLOG) vial - multi-dose SQ SCH ×3 (09:32→19:49)
[2019-05-30 11:00] VITALS: BP 117/71
[2019-05-30] MEDS: nystatin 15 GM powder TP SCH ×2 (14:04→19:37)
[2019-05-30 15:00] VITALS: BP 131/71
--- NOTE | 2019-05-30 15:29 | NUR ---
Reassessment: Pt continues on pureed food with thin liquids per ST recs and PO intake has improved to 75-100%, previously lower first few meals following extubation. Pt receiving moderate assistance with meals. [facility] 05/28. No nutrition intervention implemented at this time. Will continue to follow. Recommend: 1. continue carb controlled, pureed diet with thin liquids per ST recs 2. monitor need for verbal f/u DM/high protein education 3. monitor need for additional protein for satiety 4. routine bowel care 5. weight per rx Addendum: 05/30/19 at [address] Amended: Links added.
[2019-05-30] MEDS ORDERED: docusate sod 100mg capsule PO ONE (16:25)
[2019-05-30 18:00] VITALS: BP 118/57
--- NOTE | 2019-05-30 18:33 | NUR ---
Problems reprioritized. Patient report given, questions answered & plan of care reviewed with NIMISHA King.
--- NOTE | 2019-05-30 18:33 | NUR ---
Patient in room PCU 3022. I have received report from NIMISHA Acosta and had the opportunity to ask questions and assume patient care.
[2019-05-30] MEDS: polyethylene glycol 3350 17gm powd pack PO SCH (21:28)
[2019-05-30] MEDS: Melatonin 3mg tablet PO SCH (21:28)
[2019-05-30] MEDS: insulin glargine (Lantus) pen - multi-dose SQ SCH (21:40)
[2019-05-30 22:00] VITALS: BP 121/61
[2019-05-31] MEDS ORDERED: VANCOMYCIN LEVEL IV ONE (01:30)
[2019-05-31 02:00] VITALS: BP 121/68
[2019-05-31] MEDS: HYDROcodone/acetaminophen 5mg/325mg tablet PO PRN ×2 (02:01→13:59)
[2019-05-31] MEDS: vancomycin/NS 1 GM ADD-VANTAGE 250 ML IV SCH ×2 (02:01→13:45)
[2019-05-31 06:00] VITALS: BP 104/55
--- NOTE | 2019-05-31 07:02 | NUR ---
Problems reprioritized. Patient report given, questions answered & plan of care reviewed with Binh RN. Patient stable at shift change
--- NOTE | 2019-05-31 07:03 | NUR ---
Patient in room PCU 3022. I have received report from NIMISHA JACINTO and had the opportunity to ask questions and assume patient care.
[2019-05-31 08:38] LABS: PARTIAL THROMBOPLASTIN TIME 26 SECONDS (22-32)
[2019-05-31 08:41] LABS: ALANINE AMINOTRANSFERASE 13 U/L (12-78); ALBUMIN 1.8 G/DL (3.4-5.0); ALBUMIN/GLOBULIN RATIO 0.3 (1.1-1.5); ALKALINE PHOSPHATASE 88 IU/L (46-116); ANION GAP 2 (8-16); ASPARTATE AMINO TRANSFERASE 12 U/L (10-37); BILIRUBIN,TOTAL 0.1 MG/DL (0.1-1.0); BLOOD UREA NITROGEN 19 MG/DL (7-18); BUN/CREATININE RATIO 22.6 (6.6-38.0); CALCIUM 8.5 MG/DL (8.5-10.1); CHLORIDE 103 MMOL/L (99-107); CREATININE 0.84 MG/DL (0.40-0.90); GLUCOSE 171 MG/DL (70-104); MAGNESIUM 1.7 MG/DL (1.5-2.4); PHOSPHORUS 4.5 MG/DL (2.3-4.5); POTASSIUM 4.6 MMOL/L (3.5-5.1); SODIUM 136 MMOL/L (135-145); TOTAL CARBON DIOXIDE 31.5 MMOL/L (24-32); VANCOMYCIN,TROUGH 9.1 UG/ML (6.0-14.0); eGFR 70 ML/MIN
[2019-05-31] MEDS: aspirin 81mg tab.chew PO SCH (08:48)
[2019-05-31] MEDS: carVEDilol 12.5mg tablet PO SCH ×2 (08:48→19:41)
[2019-05-31] MEDS: moxifloxacin 0.5% ophthalmic drops 3ml EACHEYE SCH ×2 (08:48→19:41)
[2019-05-31] MEDS: heparin, porcine 5000 units/ml vial SQ SCH ×2 (08:49→19:41)
[2019-05-31] MEDS: lactobacillus rhamnosus 10,000 MMU CELLS/CAPSULE PO SCH ×2 (08:49→19:41)
[2019-05-31] MEDS: nystatin 15 GM powder TP SCH ×2 (08:57→19:41)
[2019-05-31] MEDS: insulin Lispro (HumaLOG) vial - multi-dose SQ SCH ×3 (09:11→19:40)
[2019-05-31 11:00] VITALS: BP 112/55
--- NOTE | 2019-05-31 12:53 | NUR ---
I SPOKE WITH PATIENT AND HER S/O REGARDING THE DOG IN THE ROOM. I INFORMED THEM THAT THE DOG WOULD NOT BE ALLOWED TO STAY DUE TO THE POTENTIAL TO TRANSFER LICE. S/O UNDERSTANDS AND WILL TAKE THE DOG OUT WHEN HE LEAVES.
[2019-05-31 15:00] VITALS: BP 125/68
[2019-05-31 18:00] VITALS: BP 123/65
--- NOTE | 2019-05-31 18:30 | NUR ---
Patient in room PCU 3022. I have received report from Binh BANSAL and had the opportunity to ask questions and assume patient care.
[2019-05-31] MEDS: insulin glargine (Lantus) pen - multi-dose SQ SCH (21:49)
[2019-05-31] MEDS: polyethylene glycol 3350 17gm powd pack PO SCH (21:49)
[2019-05-31] MEDS: Melatonin 3mg tablet PO SCH (21:51)
[2019-05-31 22:00] VITALS: BP 116/59
[2019-06-01] MEDS ORDERED: VANCOMYCIN LEVEL IV ONE (01:30)
[2019-06-01 01:35] LABS: ALANINE AMINOTRANSFERASE 14 U/L (12-78); ALBUMIN 1.8 G/DL (3.4-5.0); ALBUMIN/GLOBULIN RATIO 0.3 (1.1-1.5); ALKALINE PHOSPHATASE 86 IU/L (46-116); ANION GAP 2 (8-16); ASPARTATE AMINO TRANSFERASE 10 U/L (10-37); BILIRUBIN,TOTAL 0.1 MG/DL (0.1-1.0); BLOOD UREA NITROGEN 22 MG/DL (7-18); CALCIUM 8.2 MG/DL (8.5-10.1); CHLORIDE 104 MMOL/L (99-107); CREATININE 0.88 MG/DL (0.40-0.90); GLUCOSE 137 MG/DL (70-104); MAGNESIUM 1.5 MG/DL (1.5-2.4); PHOSPHORUS 4.5 MG/DL (2.3-4.5); POTASSIUM 4.8 MMOL/L (3.5-5.1); SODIUM 135 MMOL/L (135-145); VANCOMYCIN,TROUGH 12.6 UG/ML (6.0-14.0); eGFR 67 ML/MIN
[2019-06-01 02:00] VITALS: BP 124/62
[2019-06-01] MEDS: vancomycin/NS 1 GM ADD-VANTAGE 250 ML IV SCH (02:25)
--- NOTE | 2019-06-01 06:10 | NUR ---
Problems reprioritized. Patient report given, questions answered & plan of care reviewed with Thi BANSAL.
--- NOTE | 2019-06-01 06:36 | NUR ---
Patient in room PCU 3022. I have received report from Lynda BANSAL and had the opportunity to ask questions and assume patient care.
[2019-06-01 07:00] VITALS: BP 124/59
[2019-06-01 07:12] LABS: PARTIAL THROMBOPLASTIN TIME 26 SECONDS (22-32)
[2019-06-01] MEDS: insulin Lispro (HumaLOG) vial - multi-dose SQ SCH ×2 (09:30→18:54)
[2019-06-01] MEDS: heparin, porcine 5000 units/ml vial SQ SCH ×2 (09:33→21:07)
[2019-06-01] MEDS: aspirin 81mg tab.chew PO SCH (09:34)
[2019-06-01] MEDS: lactobacillus rhamnosus 10,000 MMU CELLS/CAPSULE PO SCH ×2 (09:34→21:07)
[2019-06-01] MEDS: moxifloxacin 0.5% ophthalmic drops 3ml EACHEYE SCH ×2 (09:34→21:08)
[2019-06-01] MEDS: nystatin 15 GM powder TP SCH ×2 (09:34→21:09)
[2019-06-01] MEDS: LORazepam 1 MG tablet PO PRN (09:35)
[2019-06-01] MEDS: carVEDilol 12.5mg tablet PO SCH ×2 (09:35→21:08)
[2019-06-01] MEDS: HYDROcodone/acetaminophen 5mg/325mg tablet PO PRN ×2 (09:35→18:57)
[2019-06-01 11:00] VITALS: BP 146/100
--- NOTE | 2019-06-01 13:35 | NUR ---
Per protocol, the patient did not qualify to receive insulin meal coverage with a blood glucose of 101, and the patient did not have any of her lunch.
[2019-06-01] MEDS ORDERED: VANCOmycin 1250MG/NS 250ml Bag 250 ML IV SCH (14:00)
[2019-06-01 15:00] VITALS: BP 109/76
--- NOTE | 2019-06-01 18:12 | NUR ---
Patient in room PCU 3022. I have received report from Thi BANSAL and had the opportunity to ask questions and assume patient care.
--- NOTE | 2019-06-01 18:25 | NUR ---
Problems reprioritized. Patient report given, questions answered & plan of care reviewed with Lynda BANSAL.
[2019-06-01] MEDS: DOXYCYCLINE 100MG CAPSULE PO SCH (18:54)
[2019-06-01 19:00] VITALS: BP 133/70
[2019-06-01] MEDS: Melatonin 3mg tablet PO SCH (21:07)
[2019-06-01] MEDS: polyethylene glycol 3350 17gm powd pack PO SCH (21:08)
[2019-06-01] MEDS: insulin glargine (Lantus) pen - multi-dose SQ SCH (21:11)
[2019-06-01 22:51] VITALS: BP 120/66
[2019-06-02 02:00] VITALS: BP 118/73
--- NOTE | 2019-06-02 04:27 | NUR ---
Patient in room PCU 3022. I have received report from Maisha BANSAL and had the opportunity to ask questions and assume patient care.
[2019-06-02] MEDS: HYDROcodone/acetaminophen 5mg/325mg tablet PO PRN ×2 (05:05→09:45)
[2019-06-02 06:17] LABS: PARTIAL THROMBOPLASTIN TIME 25 SECONDS (22-32)
--- NOTE | 2019-06-02 06:25 | NUR ---
Problems reprioritized. Patient report given, questions answered & plan of care reviewed with Alina BANSAL.
--- NOTE | 2019-06-02 06:25 | NUR ---
Patient in room PCU 3022. I have received report from Dhruv BANSAL and had the opportunity to ask questions and assume patient care.
[2019-06-02 06:27] LABS: ALANINE AMINOTRANSFERASE 16 U/L (12-78); ALBUMIN/GLOBULIN RATIO 0.4 (1.1-1.5); ALKALINE PHOSPHATASE 88 IU/L (46-116); ANION GAP 5 (8-16); ASPARTATE AMINO TRANSFERASE 16 U/L (10-37); BILIRUBIN,TOTAL 0.2 MG/DL (0.1-1.0); BLOOD UREA NITROGEN 22 MG/DL (7-18); BUN/CREATININE RATIO 25.9 (6.6-38.0); CALCIUM 8.4 MG/DL (8.5-10.1); CHLORIDE 104 MMOL/L (99-107); CREATININE 0.85 MG/DL (0.40-0.90); GLUCOSE 125 MG/DL (70-104); MAGNESIUM 1.7 MG/DL (1.5-2.4); PHOSPHORUS 4.5 MG/DL (2.3-4.5); POTASSIUM 4.8 MMOL/L (3.5-5.1); SODIUM 139 MMOL/L (135-145); TOTAL CARBON DIOXIDE 30.3 MMOL/L (24-32); TOTAL PROTEIN 7.3 G/DL (6.4-8.2); eGFR 69 ML/MIN
[2019-06-02 06:30] VITALS: BP 118/76
[2019-06-02] MEDS: lactobacillus rhamnosus 10,000 MMU CELLS/CAPSULE PO SCH ×2 (08:00→20:30)
[2019-06-02] MEDS: moxifloxacin 0.5% ophthalmic drops 3ml EACHEYE SCH ×2 (09:44→20:34)
[2019-06-02] MEDS: aspirin 81mg tab.chew PO SCH (09:44)
[2019-06-02] MEDS: carVEDilol 12.5mg tablet PO SCH ×2 (09:45→20:30)
[2019-06-02] MEDS: heparin, porcine 5000 units/ml vial SQ SCH ×2 (09:46→20:23)
[2019-06-02] MEDS: nystatin 15 GM powder TP SCH ×2 (09:47→20:34)
[2019-06-02] MEDS: DOXYCYCLINE 100MG CAPSULE PO SCH ×2 (09:47→17:19)
[2019-06-02] MEDS: insulin Lispro (HumaLOG) vial - multi-dose SQ SCH ×3 (09:54→18:59)
[2019-06-02 11:00] VITALS: BP 120/69
[2019-06-02 15:00] VITALS: BP 114/63
[2019-06-02 18:00] VITALS: BP 123/62
--- NOTE | 2019-06-02 18:14 | NUR ---
Problems reprioritized. Patient report given, questions answered & plan of care reviewed with Seb BANSAL.
--- NOTE | 2019-06-02 18:23 | NUR ---
Patient in room PCU 3022. I have received report from NIMISHA Fuller and had the opportunity to ask questions and assume patient care.
[2019-06-02] MEDS: polyethylene glycol 3350 17gm powd pack PO SCH (20:30)
[2019-06-02] MEDS: Melatonin 3mg tablet PO SCH (20:30)
[2019-06-02] MEDS: insulin glargine (Lantus) pen - multi-dose SQ SCH (20:34)
[2019-06-02 22:00] VITALS: BP 117/64
[2019-06-03] MEDS ORDERED: VANCOMYCIN LEVEL IV ONE (01:30)
[2019-06-03 02:00] VITALS: BP 122/68
[2019-06-03 02:08] LABS: PARTIAL THROMBOPLASTIN TIME 26 SECONDS (22-32)
[2019-06-03 02:09] LABS: ALANINE AMINOTRANSFERASE 13 U/L (12-78); ALBUMIN/GLOBULIN RATIO 0.4 (1.1-1.5); ALKALINE PHOSPHATASE 84 IU/L (46-116); ANION GAP 6 (8-16); ASPARTATE AMINO TRANSFERASE 14 U/L (10-37); BILIRUBIN,TOTAL 0.1 MG/DL (0.1-1.0); BLOOD UREA NITROGEN 27 MG/DL (7-18); BUN/CREATININE RATIO 32.1 (6.6-38.0); CALCIUM 8.7 MG/DL (8.5-10.1); CHLORIDE 104 MMOL/L (99-107); CREATININE 0.84 MG/DL (0.40-0.90); GLUCOSE 145 MG/DL (70-104); POTASSIUM 4.5 MMOL/L (3.5-5.1); SODIUM 137 MMOL/L (135-145); TOTAL CARBON DIOXIDE 27.4 MMOL/L (24-32); TOTAL PROTEIN 7.1 G/DL (6.4-8.2); eGFR 70 ML/MIN
[2019-06-03 02:10] LABS: MAGNESIUM 1.6 MG/DL (1.5-2.4); PHOSPHORUS 4.6 MG/DL (2.3-4.5); VANCOMYCIN,TROUGH 3.3 UG/ML (6.0-14.0)
--- NOTE | 2019-06-03 03:38 | NUR ---
Spoke with patient regarding reported Doxycycline adverse reaction. Patient states she does not remember if she gets nauseous. In report from day shift RN there were episodes of mild nausea. Also notified pharmacist and verified that ABx was safe to give, despite intermittent episodes of nausea. Will continue to monitor closely and hand off in report to Day shift RN.
[2019-06-03 06:00] VITALS: BP 140/85
--- NOTE | 2019-06-03 06:20 | NUR ---
Patient in room PCU 3022. I have received report from Seb BANSAL and had the opportunity to ask questions and assume patient care.
--- NOTE | 2019-06-03 06:25 | NUR ---
Problems reprioritized. Patient report given, questions answered & plan of care reviewed with NIMISHA Campbell.
[2019-06-03] MEDS: nystatin 15 GM powder TP SCH (08:00)
[2019-06-03] MEDS: heparin, porcine 5000 units/ml vial SQ SCH (08:26)
[2019-06-03] MEDS: lactobacillus rhamnosus 10,000 MMU CELLS/CAPSULE PO SCH (08:26)
[2019-06-03] MEDS: aspirin 81mg tab.chew PO SCH (08:26)
[2019-06-03] MEDS: carVEDilol 12.5mg tablet PO SCH (08:27)
[2019-06-03] MEDS: DOXYCYCLINE 100MG CAPSULE PO SCH ×2 (08:27→16:43)
[2019-06-03] MEDS: moxifloxacin 0.5% ophthalmic drops 3ml EACHEYE SCH (08:27)
[2019-06-03] MEDS: insulin Lispro (HumaLOG) vial - multi-dose SQ SCH ×2 (08:32→13:58)
--- NOTE | 2019-06-03 10:00 | NUR ---
Reassessment: Scalp abscess improving however a different skin abscess grew out MRSA per MD notes. Pt s/p f/u BSS today with ST recs to continue current texture modification. Pt continues with 75-100% PO intake meeting nutrient needs. LBM 06/02. Will continue to follow. Recommend: 1. continue carb controlled, pureed diet with thin liquids per ST recs 2. monitor need for additional protein for satiety 3. routine bowel care 4. weight per rx Addendum: 06/03/19 at [address] Amended: Links added.
[2019-06-03 11:00] VITALS: BP 107/49
--- NOTE | 2019-06-03 11:05 | NUR ---
PAGER ID: [phone] MESSAGE: Re: Kaya Dye, Room: 3022. EKG performed: Sinus Rhythm. Do you want to look at EKG? -[facility] #[id number] Dr. Rivera paged concerning Pt's EKG.
--- NOTE | 2019-06-03 13:07 | NUR ---
PAGER ID: [phone] MESSAGE: Re: Kaya Hardik, Room: [facility]. [facility] trop 0.05 -[facility] #[id number] Dr. Rivera paged concerning Pt's trop.
[2019-06-03] MEDS ORDERED: DOXY-224 PO (13:40)
--- NOTE | 2019-06-03 14:33 | NUR ---
PAGER ID: [phone] MESSAGE: Re: Kaya Dye, Room: 3022. Pharmacy only carries capsules for tetracycline monohydrate, not for tetracycline hyclate. Is Monohydrate okay? -[facility] #[id number] Dr. Rivera paged concerning DC medication
[2019-06-03 15:00] VITALS: BP 128/70
--- NOTE | 2019-06-03 15:29 | NUR ---
[phone] MESSAGE: Lubna Granger Calling ok to give pt Kaya Dye Doxy monohydrate? that is the capsule form NIMISHA Acosta [id number]
--- NOTE | 2019-06-03 18:30 | NUR ---
Problems reprioritized. Patient report given, questions answered & plan of care reviewed with Becky BANSAL.
== END 2019-06-03 19:36 | disposition home or self-care (01) | DRG 720 ==
LOC: ER 15:25 → ED HOLD 05-25 00:33 → SUR 3N 05-25 01:30 → ICU 2S 05-27 13:24 → PCU 3S 05-28 18:00
PROVIDERS: ADMIT Family Medicine; ATTEND Family Medicine
PROC: BW291ZZ Computerized Tomography (CT Scan) of Head and Neck using Low Osmolar Contrast (ICD-10-PCS; 2019-05-24)
PROC: 5A12012 Performance of Cardiac Output, Single, Manual (ICD-10-PCS; principal; 2019-06-03)
DX: A41.9 Sepsis, unspecified organism (principal); E11.65 Type 2 diabetes mellitus with hyperglycemia; F15.10 Other stimulant abuse, uncomplicated; F32.9 Major depressive disorder, single episode, unspecified; B85.0 Pediculosis due to Pediculus humanus capitis; G51.0 Bell's palsy; L03.213 Periorbital cellulitis; L02.811 Cutaneous abscess of head [any part, except face]; L03.811 Cellulitis of head [any part, except face]; J45.909 Unspecified asthma, uncomplicated; I10 Essential (primary) hypertension; H10.9 Unspecified conjunctivitis; L02.01 Cutaneous abscess of face; M19.90 Unspecified osteoarthritis, unspecified site; K21.9 Gastro-esophageal reflux disease without esophagitis; G89.29 Other chronic pain; M54.9 Dorsalgia, unspecified; I46.9 Cardiac arrest, cause unspecified; Z80.3 Family history of malignant neoplasm of breast; Z90.710 Acquired absence of both cervix and uterus; Z88.1 Allergy status to other antibiotic agents; Z59.0 Homelessness; Z86.73 Personal history of transient ischemic attack (TIA), and cerebral infarction without residual deficits; Z79.899 Other long term (current) drug therapy; Z88.8 Allergy status to other drugs, medicaments and biological substances; Z88.2 Allergy status to sulfonamides
CPT/HCPCS: 36415; 36600; 70450; 70487; 70491; 71045; 80048; 80053; 80202; 81001; 82803; 82948; 83036; 83605; 83735; 83880; 84100; 84145; 84439; 84443; 84484; 85018; 85025; 85610; 85730; 87070; 87077; 87081; 87186; 92508; 92616; 92950; 93005; 94002; 94760; 97110; 97116; 97161; 97164; 97530; 99285; G0378; J0171; J0461; J0696; J1644; J1815; J1885; J2270; J2405; J2543; J2690; J3301; J3370; J7030; Q0163; Q9967

== ENCOUNTER 2019-06-19 18:39 | Inpatient (IN) | payer MEDICAID ==
[~2019-06-19] VITALS: Ht 157.5 cm; Wt 90.9 kg
[~2019-06-19 18:39] MED LIST changes: -CIPR2.5D18 RIGHTEYE; +DOXY-224 PO; -FERR325T28 PO; -FURO-149 PO; -IRBE150T51 PO; -POTA20TA19 PO; -ROFL500T7 PO
[2019-06-19 19:50] LABS: BASOPHILS # (AUTO) 0.1 X10'3 (0-0.2); BASOPHILS % (AUTO) 0.9 % (0-1); EOSINOPHILS # (AUTO) 0.3 X10'3 (0-0.9); EOSINOPHILS % (AUTO) 2.4 % (0-6); HEMATOCRIT 41.2 % (35.0-45.0); HEMOGLOBIN 13.3 g/dl (12.0-16.0); LYMPHOCYTES # (AUTO) 1.9 X10'3 (1.1-4.8); LYMPHOCYTES % (AUTO) 14.2 % (21-51); MEAN CORPUSCULAR HEMOGLOBIN 26.2 PG (27.0-31.0); MEAN CORPUSCULAR HGB CONC 32.2 g/dL (33.0-36.5); MEAN CORPUSCULAR VOLUME 81.6 FL (78-98); MEAN PLATELET VOLUME 8.6 FL (7.4-10.4); MONOCYTES # (AUTO) 0.8 X10'3 (0-0.9); MONOCYTES % (AUTO) 5.8 % (2-12); NEUTROPHILS # (AUTO) 10.1 X10'3 (1.8-7.7); NEUTROPHILS % (AUTO) 76.7 % (42-75); PLATELET COUNT 267 X10'3 (140-440); RED BLOOD COUNT 5.05 X10'6 (4.20-5.60); RED CELL DISTRIBUTION WIDTH 14.6 % (11.5-14.5); WHITE BLOOD COUNT 13.1 X10'3 (4.5-11.0)
[2019-06-19 20:08] LABS: ALANINE AMINOTRANSFERASE 22 U/L (12-78); ALBUMIN 2.8 G/DL (3.4-5.0); ALBUMIN/GLOBULIN RATIO 0.5 (1.1-1.5); ALKALINE PHOSPHATASE 182 IU/L (46-116); AMYLASE 22 U/L (25-115); ANION GAP 4 (8-16); ASPARTATE AMINO TRANSFERASE 18 U/L (10-37); BILIRUBIN,TOTAL 0.2 MG/DL (0.1-1.0); BLOOD UREA NITROGEN 25 MG/DL (7-18); BUN/CREATININE RATIO 28.4 (6.6-38.0); CHLORIDE 105 MMOL/L (99-107); CREATININE 0.88 MG/DL (0.40-0.90); GLUCOSE 292 MG/DL (70-104); LIPASE 104 U/L (73-393); SODIUM 138 MMOL/L (135-145); TOTAL CARBON DIOXIDE 29.1 MMOL/L (24-32); TOTAL PROTEIN 8.1 G/DL (6.4-8.2); eGFR 67 ML/MIN
[2019-06-19 21:15] LABS: COLOR,URINE YELLOW (Yellow); GLUCOSE, URINE 500 mg/dl (Neg); KETONES,URINE NEGATIVE (Neg); LEUKOCYTE ESTERASE ,URINE NEGATIVE (Neg); NITRITES, URINE NEGATIVE (Neg); OCCULT BLOOD,URINE MODERATE (Neg); PH,URINE 5.5 (4.8-8.0); PROTEIN,URINE >=300 mg/dl (Neg); URINE HCG NEGATIVE (NEG); UROBILINOGEN,URINE 0.2 E.U/dL (0.2-1.0)
[2019-06-19 21:24] LABS: UA COLLECTION TYPE CLN CATCH MIDSTREAM
[2019-06-19 21:25] LABS: BACTERIA,URINE FEW /HPF (Neg); CLARITY,URINE SLIGHTLY CLOUDY (Clear); RBC,URINE 0-2 /HPF (0-2); SQUAMOUS EPITHELIAL CELL,UR FEW /LPF (FEW)
--- NOTE | 2019-06-19 21:55 | NUR ---
Pt taken to CT scan by It Systems Analyst
--- NOTE | 2019-06-19 22:06 | NUR ---
Returned from CT scan to the ED exam room 11.
[2019-06-19] MEDS ORDERED: piperacillin/tazo 3.375gm/50ml 50 ML IV ONE (23:05)
[2019-06-19] MEDS ORDERED: normal saline 1000ML IV soln IVB ONE (23:15)
[2019-06-19] MEDS ORDERED: morphine 2 MG/ML inj. syringe IV PRN (23:35)
[2019-06-19] MEDS ORDERED: magnesium hydroxide 30ml (MOM) UD suspension PO PRN (23:35)
[2019-06-19] MEDS ORDERED: magnesium 4gm in 100ml NS 100 ML IV PRN (23:35)
[2019-06-19] MEDS ORDERED: magnesium Cl slow-release 64mg tablet PO PRN (23:35)
[2019-06-19] MEDS ORDERED: mag hydrox/Alum hydrox/simeth 30ml oral suspension PO PRN (23:35)
[2019-06-19] MEDS ORDERED: magnesium 2GM in 50ml NS 50 ML IV PRN (23:35)
[2019-06-19] MEDS ORDERED: potassium CL 10mEq/100ml bag 100 ML IV PRN ×2 (23:35)
[2019-06-19] MEDS ORDERED: potassium Cl 20 mEq SR tablet PO PRN ×2 (23:35)
[2019-06-19] MEDS ORDERED: acetaminophen 325mg tablet PO PRN (23:35)
[2019-06-19] MEDS ORDERED: proCHLORperazine 10 MG/2 ml inj IV PRN (23:40)
[2019-06-19] MEDS ORDERED: MESSAGE TO PHARMACY PO ONE (23:45)
[2019-06-19] MEDS ORDERED: dextrose 50%-water 50ml dispensing syringe IV PRN ×2 (23:45)
[2019-06-19] MEDS ORDERED: glucagon, human recombinant 1mg kit SUBCUT PRN (23:45)
[2019-06-19] MEDS ORDERED: dextrose ORAL solution 15 GM/59 ML bottle PO PRN ×2 (23:45)
[2019-06-20] VITALS (23 sets, daily range): BP systolic 132–189; BP diastolic 47–107
--- NOTE | 2019-06-20 01:30 | NUR ---
`recived report from chargeRhilary Javed who got it from an Paper Conservator.
--- NOTE | 2019-06-20 01:45 | NUR ---
pt up on the floor transferred from the bed to the [facility]. purse wheel chair and coat and hat double bagged. Hxof lice and saw x2 nits on the coat noted with 3 people.
--- NOTE | 2019-06-20 02:32 | NUR ---
inserted in the er Addendum: 06/20/19 at 0232 by Haleigh Sheehan RN Amended: Links added.
[2019-06-20] MEDS: normal saline 1000ml 1,000 ML IV SCH ×3 (03:59→20:21)
[2019-06-20 05:55] LABS: BASOPHILS # (AUTO) 0.1 X10'3 (0-0.2); BASOPHILS % (AUTO) 0.5 % (0-1); EOSINOPHILS # (AUTO) 0.3 X10'3 (0-0.9); EOSINOPHILS % (AUTO) 2.4 % (0-6); HEMATOCRIT 37.5 % (35.0-45.0); HEMOGLOBIN 12.1 g/dl (12.0-16.0); LYMPHOCYTES # (AUTO) 2.1 X10'3 (1.1-4.8); LYMPHOCYTES % (AUTO) 17.8 % (21-51); MEAN CORPUSCULAR HEMOGLOBIN 26.4 PG (27.0-31.0); MEAN CORPUSCULAR HGB CONC 32.3 g/dL (33.0-36.5); MEAN CORPUSCULAR VOLUME 81.8 FL (78-98); MEAN PLATELET VOLUME 8.5 FL (7.4-10.4); MONOCYTES # (AUTO) 0.7 X10'3 (0-0.9); NEUTROPHILS # (AUTO) 8.5 X10'3 (1.8-7.7); NEUTROPHILS % (AUTO) 73.3 % (42-75); PLATELET COUNT 243 X10'3 (140-440); RED BLOOD COUNT 4.58 X10'6 (4.20-5.60); RED CELL DISTRIBUTION WIDTH 14.5 % (11.5-14.5); WHITE BLOOD COUNT 11.7 X10'3 (4.5-11.0)
[2019-06-20 06:10] LABS: ALANINE AMINOTRANSFERASE 22 U/L (12-78); ALBUMIN 2.2 G/DL (3.4-5.0); ALBUMIN/GLOBULIN RATIO 0.5 (1.1-1.5); ALKALINE PHOSPHATASE 142 IU/L (46-116); ANION GAP 2 (8-16); ASPARTATE AMINO TRANSFERASE 19 U/L (10-37); BILIRUBIN,TOTAL 0.1 MG/DL (0.1-1.0); BLOOD UREA NITROGEN 20 MG/DL (7-18); CALCIUM 8.3 MG/DL (8.5-10.1); CHLORIDE 108 MMOL/L (99-107); GLUCOSE 225 MG/DL (70-104); MAGNESIUM 1.6 MG/DL (1.5-2.4); PHOSPHORUS 3.4 MG/DL (2.3-4.5); SODIUM 140 MMOL/L (135-145); TOTAL CARBON DIOXIDE 30.2 MMOL/L (24-32); TOTAL PROTEIN 6.8 G/DL (6.4-8.2); eGFR 74 ML/MIN
--- NOTE | 2019-06-20 07:00 | NUR ---
Patient in room [facility]. I have received report from Haleigh BANSAL and had the opportunity to ask questions and assume patient care.
--- NOTE | 2019-06-20 07:01 | NUR ---
Problems reprioritized. Patient report given, questions answered & plan of care reviewed with Gena Joseph. Addendum: 06/20/19 at 0702 by Haleigh Sheehan RN Amended: Links added.
[2019-06-20] MEDS: K and/or MAG REPLACEMENT MC SCH ×2 (08:00→20:00)
[2019-06-20] MEDS ORDERED: piperacillin/tazo 4.5gm/100ml 100 ML IV SCH (08:00)
[2019-06-20] MEDS: insulin Lispro (HumaLOG) vial - multi-dose SQ SCH ×2 (10:11→20:49)
[2019-06-20] MEDS: hydrALAZINE 20mg/ml inj. IV PRN (12:34)
[2019-06-20] MEDS ORDERED: ringers solution, lacted 1,000 ML IV SCH (14:02)
[2019-06-20] MEDS ORDERED: labetalol 20mg/4ml (5mg/ml) syringe IV PRN (14:05)
[2019-06-20] MEDS ORDERED: ondansetron/PF 4mg/2ml inj IV PRN (14:05)
[2019-06-20] MEDS ORDERED: acetaminophen 1,000mg/100ml IV 100 ML IV PRN ×2 (14:05→19:00)
[2019-06-20] MEDS ORDERED: proCHLORperazine 10 MG/2 ml inj IV PRN (14:05)
[2019-06-20] MEDS ORDERED: morphine 4 MG/ML inj SYRINge IV PRN ×2 (14:05→19:00)
[2019-06-20] MEDS ORDERED: hydrALAZINE 20mg/ml inj. IV PRN ×2 (14:05→19:00)
[2019-06-20] MEDS ORDERED: meperidine/PF 25mg/ml syringe IV PRN ×3 (14:05→19:00)
[2019-06-20] MEDS ORDERED: morphine 2 MG/ML inj. syringe IV PRN ×2 (14:05→19:00)
[2019-06-20] MEDS ORDERED: HYDROmorphone inj. 0.5 MG/0.5 ML DISP.SYRIN IV PRN ×4 (14:05→19:00)
--- NOTE | 2019-06-20 14:45 | NUR ---
1350 report given to Isaiah Joseph in OR. 1445 pt down to OR via carlos accompanied by Osvaldo Joseph. Pt belongings remained in room.
[2019-06-20] MEDS ORDERED: phenylephrine 10mg/ml inj. ONE (15:00)
[2019-06-20] MEDS ORDERED: sevoflurane 250ml liquid IH ONE (15:00)
[2019-06-20] MEDS ORDERED: albumin (Human) 5% 250ml BOTTLE IV ONE (15:00)
[2019-06-20] MEDS ORDERED: rocuronium 10mg/ml inj IV ONE ×2 (15:00→15:54)
[2019-06-20] MEDS ORDERED: LIDOcaine 1% 30ml preserv. free vial ONE (15:01)
[2019-06-20] MEDS ORDERED: BUPIVACAINE liposomal/PF 13.3 MG/ML vial IM ONE (15:01)
[2019-06-20] MEDS ORDERED: BUPIVAcaine/PF 2.5mg/ml (0.25%) 10ml vial ONE (15:01)
[2019-06-20] MEDS ORDERED: LIDOcaine 1% (10mg/ml) 2ml vial ONE (15:01)
[2019-06-20] MEDS ORDERED: BUPIVAcaine/PF 2.5 mg/ml (0.25%) 30ml vial ONE (15:01)
[2019-06-20] MEDS ORDERED: fentaNYL/PF 50MCG/1 ML 2ML syringe ONE (15:05)
[2019-06-20] MEDS ORDERED: midazolam 2 mg/2 ml injection ONE ×2 (15:11→15:12)
[2019-06-20] MEDS ORDERED: propofol inj 20 ML IV ONE (15:54)
[2019-06-20] MEDS ORDERED: dexamethasone sod phosphate 4mg/ml inj. ONE (15:54)
[2019-06-20] MEDS ORDERED: ondansetron/PF 4mg/2ml inj ONE (15:54)
[2019-06-20] MEDS ORDERED: ceFOXitin 1000 MG inj ONE ×2 (15:54)
[2019-06-20] MEDS ORDERED: LIDOcaine 2% (20mg/ml) 5ml vial ONE (15:54)
[2019-06-20] MEDS ORDERED: fentaNYL /PF 50mcg/ml 5ml ampule ONE (16:10)
[2019-06-20] MEDS ORDERED: NORepinephrine 8 MG in NS 250ml IV soln IV SCH (16:20)
[2019-06-20] MEDS ORDERED: neostigmine methylsulfate 1 MG/ML 10ml vial ONE (18:13)
[2019-06-20] MEDS ORDERED: glycopyrrolate 0.2mg/ml inj ONE (18:13)
[2019-06-20] MEDS ORDERED: labetalol 20mg/4ml (5mg/ml) syringe IV ONE (18:18)
[2019-06-20] MEDS ORDERED: CADD PCA waste documentation MC PRN (18:25)
[2019-06-20] MEDS ORDERED: naloxone 0.4 mg/ml inj IV PRN (18:25)
--- NOTE | 2019-06-20 18:29 | NUR ---
RECIEVED FROM OR VIA BED ACCOMPANIED BY ANESTHESIOLOGIST DR WOOD, REPORT GIVEN. PT DROWSY BUT AROUSES, C/O PAIN AT LEVEL 6 AT THIS TIME. 20 GAUGE PIV L AC PATENT AND RUNNING LR AT 100 ML/HR, 20 GAUGE ART LINE R WRIST, F/C DRAINING CLEAR YELLOW URINE. LARGE BANDAID X 4 CDI WITH ABD BINDER INTACT. VSS, SKIN PINK AND WARM, SONG, ABD SOFT, NG TUBE TO SUCTION. Addendum: 06/20/19 at 1908 by Umm Moe RN Amended: Links added.
--- NOTE | 2019-06-20 19:00 | NUR ---
Problems reprioritized. Patient report given, questions answered & plan of care reviewed with Peña BANSAL.
--- NOTE | 2019-06-20 19:59 | NUR ---
ART LINE R WRIST DC/D CATHETER TIP INTACT. TRANSFERRED VIA BED ACCOMPANIED BY MYSELF, REPORT GIVEN. PT DROWSY BUT AROUSES, C/O PAIN AT LEVEL 3 AT THIS TIME. 20 GAUGE PIV L AC PATENT AND RUNNING LR AT 100 ML/HR, F/C DRAINING CLEAR YELLOW URINE. LARGE BANDAID X 4 CDI WITH ABD BINDER INTACT. VSS, SKIN PINK AND WARM, SONG, ABD SOFT, NG TUBE TO SUCTION. BED LOW, RAILS UP, LEFT IN CARE OF CHARGE NURSE.
--- NOTE | 2019-06-20 20:10 | NUR ---
pt arrived to floor from recovery room. pt awakens easily, in no apparent distress. BLL, 2x rails up, call light in reach, NG to LOW int per md order. VS 137/77 104HR, 93% 3LNC, 20 RR, 96.8 AX temp. will continue to monitor
[2019-06-20] MEDS: piperacillin/tazo 4.5gm/100ml 100 ML IV SCH (20:22)
[2019-06-20] MEDS: insulin glargine (Lantus) pen - multi-dose SQ SCH (20:51)
[2019-06-20] MEDS: HYDROmorphone/NS 1 mg/ml CADD 50 ML IV SCH ×2 (21:00→23:00)
[2019-06-21] VITALS: BP 137/85
[2019-06-21] MEDS: HYDROmorphone/NS 1 mg/ml CADD 50 ML IV SCH ×13 (01:00→23:00)
[2019-06-21] MEDS: piperacillin/tazo 4.5gm/100ml 100 ML IV SCH ×3 (01:01→16:46)
[2019-06-21] MEDS: normal saline 1000ml 1,000 ML IV SCH ×2 (05:35→16:45)
[2019-06-21 05:50] LABS: ALANINE AMINOTRANSFERASE 16 U/L (12-78); ALBUMIN 2.3 G/DL (3.4-5.0); ALBUMIN/GLOBULIN RATIO 0.5 (1.1-1.5); ALKALINE PHOSPHATASE 125 IU/L (46-116); ANION GAP 11 (8-16); ASPARTATE AMINO TRANSFERASE 17 U/L (10-37); BILIRUBIN,TOTAL 0.3 MG/DL (0.1-1.0); BLOOD UREA NITROGEN 13 MG/DL (7-18); BUN/CREATININE RATIO 12.4 (6.6-38.0); CALCIUM 8.1 MG/DL (8.5-10.1); CHLORIDE 103 MMOL/L (99-107); CREATININE 1.05 MG/DL (0.40-0.90); GLUCOSE 327 MG/DL (70-104); MAGNESIUM 1.4 MG/DL (1.5-2.4); PHOSPHORUS 4.3 MG/DL (2.3-4.5); POTASSIUM 4.4 MMOL/L (3.5-5.1); SODIUM 137 MMOL/L (135-145); TOTAL CARBON DIOXIDE 23.2 MMOL/L (24-32); TOTAL PROTEIN 6.8 G/DL (6.4-8.2); eGFR 54 ML/MIN
[2019-06-21 06:12] LABS: BASOPHILS # (AUTO) 0.1 X10'3 (0-0.2); BASOPHILS % (AUTO) 0.5 % (0-1); EOSINOPHILS % (AUTO) 0.1 % (0-6); HEMATOCRIT 38.1 % (35.0-45.0); HEMOGLOBIN 12.5 g/dl (12.0-16.0); LYMPHOCYTES # (AUTO) 0.8 X10'3 (1.1-4.8); LYMPHOCYTES % (AUTO) 5.5 % (21-51); MEAN CORPUSCULAR HGB CONC 32.7 g/dL (33.0-36.5); MEAN CORPUSCULAR VOLUME 82.5 FL (78-98); MEAN PLATELET VOLUME 8.4 FL (7.4-10.4); MONOCYTES # (AUTO) 0.5 X10'3 (0-0.9); MONOCYTES % (AUTO) 3.7 % (2-12); NEUTROPHILS # (AUTO) 13.1 X10'3 (1.8-7.7); NEUTROPHILS % (AUTO) 90.2 % (42-75); PLATELET COUNT 244 X10'3 (140-440); RED BLOOD COUNT 4.62 X10'6 (4.20-5.60); RED CELL DISTRIBUTION WIDTH 14.5 % (11.5-14.5); WHITE BLOOD COUNT 14.6 X10'3 (4.5-11.0)
--- NOTE | 2019-06-21 06:25 | NUR ---
Patient in room [facility] 356. I have received report from Peña BANSAL and had the opportunity to ask questions and assume patient care.
[2019-06-21 08:00] VITALS: BP 119/76
[2019-06-21] MEDS: K and/or MAG REPLACEMENT MC SCH ×2 (08:12→20:00)
[2019-06-21] MEDS: insulin Lispro (HumaLOG) vial - multi-dose SQ SCH ×2 (10:32→14:36)
[2019-06-21 12:00] VITALS: BP 103/70
--- NOTE | 2019-06-21 15:05 | NUR ---
DM Consult: Pt A1C 8.6 down from 11 previously. Pt provided DM ed w/ RD contact information recent prior admit. Pt admit w/ possible SBO/strangulation secondary to umbilical hernia per . Hx daily meth abuse. No need for reinforcement at this time. Currently NPO for OR. Will continue to monitor. Addendum: 06/21/19 at [address] Amended: Links added.
--- NOTE | 2019-06-21 19:00 | NUR ---
Problems reprioritized. Patient report given, questions answered & plan of care reviewed with Peña BANSAL.
[2019-06-21 20:00] VITALS: BP 141/74
[2019-06-21] MEDS: insulin glargine (Lantus) pen - multi-dose SQ SCH (22:20)
[2019-06-21] MEDS: diatr meglu/diatrizoate 30ml oral sol.-(3 dose) bottle PO SCH (22:22)
[2019-06-22] VITALS: BP 138/77
[2019-06-22] MEDS: piperacillin/tazo 4.5gm/100ml 100 ML IV SCH ×3 (00:55→16:05)
[2019-06-22] MEDS: HYDROmorphone/NS 1 mg/ml CADD 50 ML IV SCH ×12 (01:00→23:00)
[2019-06-22] MEDS: normal saline 1000ml 1,000 ML IV SCH ×3 (01:35→16:13)
[2019-06-22] MEDS: diatr meglu/diatrizoate 30ml oral sol.-(3 dose) bottle PO SCH ×2 (07:29→10:18)
[2019-06-22 07:39] VITALS: BP 135/81
[2019-06-22] MEDS: K and/or MAG REPLACEMENT MC SCH ×2 (08:00→20:00)
[2019-06-22 08:12] LABS: BASOPHILS # (AUTO) 0.1 X10'3 (0-0.2); BASOPHILS % (AUTO) 0.7 % (0-1); EOSINOPHILS # (AUTO) 0.8 X10'3 (0-0.9); EOSINOPHILS % (AUTO) 6.8 % (0-6); HEMATOCRIT 36.1 % (35.0-45.0); HEMOGLOBIN 11.5 g/dl (12.0-16.0); LYMPHOCYTES # (AUTO) 1.9 X10'3 (1.1-4.8); LYMPHOCYTES % (AUTO) 16.2 % (21-51); MEAN CORPUSCULAR HEMOGLOBIN 26.1 PG (27.0-31.0); MEAN CORPUSCULAR HGB CONC 31.9 g/dL (33.0-36.5); MEAN PLATELET VOLUME 8.5 FL (7.4-10.4); MONOCYTES # (AUTO) 0.9 X10'3 (0-0.9); NEUTROPHILS % (AUTO) 68.3 % (42-75); PLATELET COUNT 243 X10'3 (140-440); RED BLOOD COUNT 4.41 X10'6 (4.20-5.60); RED CELL DISTRIBUTION WIDTH 14.9 % (11.5-14.5); WHITE BLOOD COUNT 11.7 X10'3 (4.5-11.0)
[2019-06-22 08:33] LABS: ALANINE AMINOTRANSFERASE 14 U/L (12-78); ALBUMIN 2.2 G/DL (3.4-5.0); ALBUMIN/GLOBULIN RATIO 0.5 (1.1-1.5); ALKALINE PHOSPHATASE 108 IU/L (46-116); ANION GAP 4 (8-16); ASPARTATE AMINO TRANSFERASE 17 U/L (10-37); BILIRUBIN,TOTAL 0.3 MG/DL (0.1-1.0); BLOOD UREA NITROGEN 14 MG/DL (7-18); BUN/CREATININE RATIO 18.2 (6.6-38.0); CALCIUM 7.9 MG/DL (8.5-10.1); CHLORIDE 106 MMOL/L (99-107); CREATININE 0.77 MG/DL (0.40-0.90); GLUCOSE 143 MG/DL (70-104); MAGNESIUM 2.4 MG/DL (1.5-2.4); PHOSPHORUS 3.5 MG/DL (2.3-4.5); SODIUM 137 MMOL/L (135-145); TOTAL PROTEIN 6.6 G/DL (6.4-8.2); eGFR 78 ML/MIN
[2019-06-22] MEDS ORDERED: iohexol 300mg/ml 100ml inj. ONE (10:13)
[2019-06-22 12:00] VITALS: BP 152/80
--- NOTE | 2019-06-22 13:37 | NUR ---
strait cathed pt, pt tolerated procedure well, NG tube removed without incident, pt tolerated well. BF
[2019-06-22] MEDS: insulin Lispro (HumaLOG) vial - multi-dose SQ SCH ×2 (16:32→18:51)
[2019-06-22] MEDS: ondansetron/PF 4mg/2ml inj IV PRN (17:51)
[2019-06-22 18:00] VITALS: BP 118/54
--- NOTE | 2019-06-22 18:35 | NUR ---
Problems reprioritized. Patient report given, questions answered & plan of care reviewed with Peña BANSAL.
[2019-06-22] MEDS: lactobacillus rhamnosus 10,000 MMU CELLS/CAPSULE PO SCH (21:07)
[2019-06-22] MEDS: insulin glargine (Lantus) pen - multi-dose SQ SCH (21:09)
[2019-06-23] VITALS: BP 144/79
[2019-06-23] MEDS: piperacillin/tazo 4.5gm/100ml 100 ML IV SCH ×2 (00:22→09:46)
[2019-06-23] MEDS: HYDROmorphone/NS 1 mg/ml CADD 50 ML IV SCH ×6 (01:00→13:12)
[2019-06-23 04:34] VITALS: BP_SYST 151; BP_SYST 152; BP_DIAS 78; BP_DIAS 88
[2019-06-23] MEDS ORDERED: magnesium hydroxide 30ml (MOM) UD suspension PO ONE (05:20)
[2019-06-23 06:01] LABS: BASOPHILS # (AUTO) 0.1 X10'3 (0-0.2); BASOPHILS % (AUTO) 0.7 % (0-1); EOSINOPHILS # (AUTO) 0.7 X10'3 (0-0.9); EOSINOPHILS % (AUTO) 6.3 % (0-6); HEMATOCRIT 33.9 % (35.0-45.0); HEMOGLOBIN 11.1 g/dl (12.0-16.0); LYMPHOCYTES # (AUTO) 1.9 X10'3 (1.1-4.8); LYMPHOCYTES % (AUTO) 17.3 % (21-51); MEAN CORPUSCULAR HEMOGLOBIN 26.9 PG (27.0-31.0); MEAN CORPUSCULAR HGB CONC 32.8 g/dL (33.0-36.5); MEAN CORPUSCULAR VOLUME 82.2 FL (78-98); MONOCYTES % (AUTO) 9.3 % (2-12); NEUTROPHILS # (AUTO) 7.4 X10'3 (1.8-7.7); NEUTROPHILS % (AUTO) 66.4 % (42-75); PLATELET COUNT 232 X10'3 (140-440); RED BLOOD COUNT 4.13 X10'6 (4.20-5.60); RED CELL DISTRIBUTION WIDTH 14.3 % (11.5-14.5); WHITE BLOOD COUNT 11.1 X10'3 (4.5-11.0)
[2019-06-23 06:10] LABS: ALANINE AMINOTRANSFERASE 15 U/L (12-78); ALBUMIN/GLOBULIN RATIO 0.5 (1.1-1.5); ALKALINE PHOSPHATASE 102 IU/L (46-116); ANION GAP 4 (8-16); ASPARTATE AMINO TRANSFERASE 15 U/L (10-37); BILIRUBIN,TOTAL 0.4 MG/DL (0.1-1.0); BLOOD UREA NITROGEN 12 MG/DL (7-18); BUN/CREATININE RATIO 16.7 (6.6-38.0); CALCIUM 7.8 MG/DL (8.5-10.1); CHLORIDE 106 MMOL/L (99-107); CREATININE 0.72 MG/DL (0.40-0.90); GLUCOSE 106 MG/DL (70-104); MAGNESIUM 1.7 MG/DL (1.5-2.4); PHOSPHORUS 3.1 MG/DL (2.3-4.5); POTASSIUM 3.8 MMOL/L (3.5-5.1); SODIUM 138 MMOL/L (135-145); TOTAL CARBON DIOXIDE 28.2 MMOL/L (24-32); TOTAL PROTEIN 6.3 G/DL (6.4-8.2); eGFR 84 ML/MIN
[2019-06-23] MEDS ORDERED: methylnaltrexone br 12mg/0.6ml inj***SubQ only SQ ONE (07:25)
[2019-06-23] MEDS: normal saline 1000ml 1,000 ML IV SCH ×4 (07:35→20:30)
[2019-06-23 08:00] VITALS: BP 160/84
[2019-06-23] MEDS: K and/or MAG REPLACEMENT MC SCH ×2 (08:00→18:51)
[2019-06-23] MEDS: lactobacillus rhamnosus 10,000 MMU CELLS/CAPSULE PO SCH ×2 (09:38→19:49)
[2019-06-23] MEDS: aspirin 81mg tablet.DR PO SCH (09:38)
[2019-06-23 11:00] VITALS: BP 163/78
--- NOTE | 2019-06-23 12:50 | NUR ---
pt sleeping all AM, can hardly stay awake to eat. VSS. pts barely used her Dilaudid CADD this AM. Spoke with Dr. Rivera and MD agreed it's best to d/c Dilaudid CADD and start on [place] 10-[address] orders.
--- NOTE | 2019-06-23 16:06 | NUR ---
Pt recently admitted and placed on pureed diet with thin liquids per ST recs 06/03. Pt currently on a full liquid diet s/p lap hernia repair with lysis of adhesions. D/w RN recommendation for pureed diet with thin liquids per ST previous recs once MD advances PO diet. Pt would benefit from f/u BSS to determine appropriate texture modification. Will continue to follow. Addendum: 06/23/19 at [address] Amended: Links added.
[2019-06-23] MEDS: piperacillin/tazo 3.375gm/50ml 50 ML IV SCH ×2 (17:01→23:55)
--- NOTE | 2019-06-23 18:25 | NUR ---
Received report from NIMISHA Montes De Oca. Patient is awake and alert on room air, having meal. Call light and items of frequent use within reach. Will continue to monitor.
--- NOTE | 2019-06-23 18:36 | NUR ---
Problems reprioritized. Patient report given, questions answered & plan of care reviewed with NIMISHA Garcia.
[2019-06-23] MEDS: insulin Lispro (HumaLOG) vial - multi-dose SQ SCH (18:39)
[2019-06-23] MEDS: hydrALAZINE 20mg/ml inj. IV PRN (19:53)
[2019-06-23] MEDS: HYDROcodone/acetaminophen 10/325mg tab PO PRN (19:54)
[2019-06-23 20:00] VITALS: BP 164/83
[2019-06-23] MEDS: insulin glargine (Lantus) pen - multi-dose SQ SCH (20:58)
[2019-06-24] VITALS: BP 145/81
[2019-06-24] MEDS: HYDROcodone/acetaminophen 10/325mg tab PO PRN ×2 (00:23→07:56)
[2019-06-24 05:02] LABS: BASOPHILS # (AUTO) 0.1 X10'3 (0-0.2); BASOPHILS % (AUTO) 0.9 % (0-1); EOSINOPHILS # (AUTO) 0.6 X10'3 (0-0.9); EOSINOPHILS % (AUTO) 6.1 % (0-6); HEMATOCRIT 34.6 % (35.0-45.0); HEMOGLOBIN 11.2 g/dl (12.0-16.0); LYMPHOCYTES # (AUTO) 2.2 X10'3 (1.1-4.8); LYMPHOCYTES % (AUTO) 22.5 % (21-51); MEAN CORPUSCULAR HEMOGLOBIN 26.3 PG (27.0-31.0); MEAN CORPUSCULAR HGB CONC 32.4 g/dL (33.0-36.5); MEAN CORPUSCULAR VOLUME 81.1 FL (78-98); MONOCYTES # (AUTO) 0.8 X10'3 (0-0.9); MONOCYTES % (AUTO) 8.2 % (2-12); NEUTROPHILS # (AUTO) 6.1 X10'3 (1.8-7.7); NEUTROPHILS % (AUTO) 62.3 % (42-75); PLATELET COUNT 268 X10'3 (140-440); RED BLOOD COUNT 4.27 X10'6 (4.20-5.60); RED CELL DISTRIBUTION WIDTH 14.5 % (11.5-14.5); WHITE BLOOD COUNT 9.8 X10'3 (4.5-11.0)
[2019-06-24 05:24] LABS: ALANINE AMINOTRANSFERASE 14 U/L (12-78); ALBUMIN/GLOBULIN RATIO 0.5 (1.1-1.5); ALKALINE PHOSPHATASE 117 IU/L (46-116); ANION GAP 5 (8-16); ASPARTATE AMINO TRANSFERASE 17 U/L (10-37); BILIRUBIN,TOTAL 0.4 MG/DL (0.1-1.0); BLOOD UREA NITROGEN 10 MG/DL (7-18); BUN/CREATININE RATIO 14.1 (6.6-38.0); CALCIUM 8.3 MG/DL (8.5-10.1); CHLORIDE 106 MMOL/L (99-107); CREATININE 0.71 MG/DL (0.40-0.90); GLUCOSE 102 MG/DL (70-104); MAGNESIUM 1.7 MG/DL (1.5-2.4); PHOSPHORUS 2.8 MG/DL (2.3-4.5); POTASSIUM 3.8 MMOL/L (3.5-5.1); SODIUM 139 MMOL/L (135-145); TOTAL CARBON DIOXIDE 27.8 MMOL/L (24-32); TOTAL PROTEIN 6.4 G/DL (6.4-8.2); eGFR 85 ML/MIN
--- NOTE | 2019-06-24 06:00 | NUR ---
Patient in room [facility] 356. I have received report from NIMISHA Garcia and had the opportunity to ask questions and assume patient care.
--- NOTE | 2019-06-24 06:11 | NUR ---
Problems reprioritized. Patient report given, questions answered & plan of care reviewed with NIMISHA Castro.
[2019-06-24] MEDS: piperacillin/tazo 3.375gm/50ml 50 ML IV SCH ×2 (07:39→16:18)
[2019-06-24] MEDS: aspirin 81mg tablet.DR PO SCH (07:41)
[2019-06-24] MEDS: lactobacillus rhamnosus 10,000 MMU CELLS/CAPSULE PO SCH ×2 (07:41→19:09)
[2019-06-24] MEDS: hydrALAZINE 20mg/ml inj. IV PRN (07:46)
[2019-06-24 08:00] VITALS: BP 187/95
[2019-06-24] MEDS: K and/or MAG REPLACEMENT MC SCH ×2 (08:00→20:00)
[2019-06-24] MEDS ORDERED: methylnaltrexone br 12mg/0.6ml inj***SubQ only SQ ONE (10:55)
[2019-06-24 11:00] VITALS: BP 128/71
--- NOTE | 2019-06-24 11:33 | NUR ---
Initial: Pt admit with SBO with umbilical hernia and possible RLQ bowel strangulation. Pt now s/p lap hernia repair with lysis of adhesions. Pt on full liquid diet initially with 25% PO intake up to 75% at dinner last night, pending documentation of PO intake for today. Pt would likely benefit from BSS prior to PO diet advancement given hx of choking on food at last visit requiring pureed foods with thin liquids per ST recs at last visit 06/03. LBM 06/19. Repeat CT was negative for bowel obstruction per MD notes. Pt receiving routine Relistor. Will continue to follow and monitor need for nutrition intervention. Recommendations: 1) BSS prior to PO diet advancement to CHO controlled 2) Monitor need for ONS/additional protein 3) Routine bowel care 4) Wt per rx Addendum: 06/24/19 at [address] Amended: Links added.
[2019-06-24] MEDS: insulin Lispro (HumaLOG) vial - multi-dose SQ SCH ×2 (13:15→19:08)
[2019-06-24 17:00] VITALS: BP_SYST 143; BP_SYST 169; BP_DIAS 55; BP_DIAS 86
[2019-06-24] MEDS ORDERED: magnesium hydroxide 30ml (MOM) UD suspension PO ONE (17:05)
[2019-06-24] MEDS: normal saline 1000ml 1,000 ML IV SCH ×2 (17:40→23:35)
--- NOTE | 2019-06-24 18:00 | NUR ---
Problems reprioritized. Patient report given, questions answered & plan of care reviewed with NIMISHA Casarez.
[2019-06-24 20:00] VITALS: BP 172/77
[2019-06-24] MEDS: insulin glargine (Lantus) pen - multi-dose SQ SCH (21:53)
[2019-06-25] VITALS: BP 172/87
[2019-06-25] MEDS: piperacillin/tazo 3.375gm/50ml 50 ML IV SCH ×3 (00:47→16:59)
--- NOTE | 2019-06-25 06:00 | NUR ---
Problems reprioritized. Patient report given, questions answered & plan of care reviewed with Nadia Reardon RN. Addendum: 06/25/19 at 1816 by Matthew Arias RN NIMISHA Casarez report received not given.
[2019-06-25] MEDS: normal saline 1000ml 1,000 ML IV SCH ×2 (06:11→17:05)
[2019-06-25] MEDS: K and/or MAG REPLACEMENT MC SCH ×2 (07:12→20:00)
[2019-06-25 08:00] VITALS: BP 130/60
[2019-06-25] MEDS: lactobacillus rhamnosus 10,000 MMU CELLS/CAPSULE PO SCH ×2 (08:11→20:42)
[2019-06-25] MEDS: HYDROcodone/acetaminophen 10/325mg tab PO PRN ×3 (08:11→21:02)
[2019-06-25] MEDS: aspirin 81mg tablet.DR PO SCH (08:11)
[2019-06-25] MEDS: insulin Lispro (HumaLOG) vial - multi-dose SQ SCH ×3 (09:40→19:18)
[2019-06-25 11:00] VITALS: BP 122/68
[2019-06-25] MEDS: ondansetron/PF 4mg/2ml inj IV PRN (12:07)
[2019-06-25] MEDS: fluticasone nasal spray 16GM bottle NS SCH (17:28)
[2019-06-25] MEDS: salt irrigation nasal spray 45 ML SPRAY NS SCH (17:29)
--- NOTE | 2019-06-25 18:15 | NUR ---
Problems reprioritized. Patient report given, questions answered & plan of care reviewed with Nadia Reardon RN.
--- NOTE | 2019-06-25 18:49 | NUR ---
Patient in room [facility] 356. I have received report from NIMISHA Castro and had the opportunity to ask questions and assume patient care. Addendum: 06/25/19 at 1849 by Lindy Rollins RN Amended: Links added.
[2019-06-25] MEDS: insulin glargine (Lantus) pen - multi-dose SQ SCH (22:24)
[2019-06-26] MEDS: piperacillin/tazo 3.375gm/50ml 50 ML IV SCH (00:20)
[2019-06-26 05:42] LABS: BASOPHILS # (AUTO) 0.1 X10'3 (0-0.2); BASOPHILS % (AUTO) 0.8 % (0-1); EOSINOPHILS # (AUTO) 0.6 X10'3 (0-0.9); EOSINOPHILS % (AUTO) 5.4 % (0-6); HEMATOCRIT 34.7 % (35.0-45.0); HEMOGLOBIN 11.5 g/dl (12.0-16.0); LYMPHOCYTES # (AUTO) 2.4 X10'3 (1.1-4.8); LYMPHOCYTES % (AUTO) 20.3 % (21-51); MEAN CORPUSCULAR HEMOGLOBIN 27.1 PG (27.0-31.0); MEAN CORPUSCULAR HGB CONC 33.2 g/dL (33.0-36.5); MEAN CORPUSCULAR VOLUME 81.6 FL (78-98); MONOCYTES # (AUTO) 0.7 X10'3 (0-0.9); MONOCYTES % (AUTO) 6.3 % (2-12); NEUTROPHILS # (AUTO) 7.9 X10'3 (1.8-7.7); NEUTROPHILS % (AUTO) 67.2 % (42-75); PLATELET COUNT 336 X10'3 (140-440); RED BLOOD COUNT 4.25 X10'6 (4.20-5.60); RED CELL DISTRIBUTION WIDTH 14.9 % (11.5-14.5); WHITE BLOOD COUNT 11.7 X10'3 (4.5-11.0)
[2019-06-26] MEDS: normal saline 1000ml 1,000 ML IV SCH ×2 (05:45→15:35)
[2019-06-26 06:18] LABS: ALANINE AMINOTRANSFERASE 13 U/L (12-78); ALBUMIN/GLOBULIN RATIO 0.4 (1.1-1.5); ALKALINE PHOSPHATASE 110 IU/L (46-116); ANION GAP 7 (8-16); ASPARTATE AMINO TRANSFERASE 15 U/L (10-37); BILIRUBIN,TOTAL 0.2 MG/DL (0.1-1.0); BLOOD UREA NITROGEN 8 MG/DL (7-18); BUN/CREATININE RATIO 10.3 (6.6-38.0); CALCIUM 8.1 MG/DL (8.5-10.1); CHLORIDE 104 MMOL/L (99-107); CREATININE 0.78 MG/DL (0.40-0.90); GLUCOSE 117 MG/DL (70-104); POTASSIUM 4.1 MMOL/L (3.5-5.1); SODIUM 138 MMOL/L (135-145); TOTAL CARBON DIOXIDE 27.4 MMOL/L (24-32); TOTAL PROTEIN 6.6 G/DL (6.4-8.2); eGFR 77 ML/MIN
[2019-06-26 06:30] VITALS: BP 160/85
--- NOTE | 2019-06-26 06:39 | NUR ---
Problems reprioritized. Patient report given, questions answered & plan of care reviewed with NIMISHA Acosta.
--- NOTE | 2019-06-26 06:40 | NUR ---
Patient in room [facility] 356. I have received report from Nadia Reardon RN and had the opportunity to ask questions and assume patient care.
[2019-06-26] MEDS: K and/or MAG REPLACEMENT MC SCH (07:07)
[2019-06-26] MEDS ORDERED: methylnaltrexone br 12mg/0.6ml inj***SubQ only SQ SCH (08:00)
[2019-06-26] MEDS: salt irrigation nasal spray 45 ML SPRAY NS SCH (08:00)
[2019-06-26] MEDS: fluticasone nasal spray 16GM bottle NS SCH (08:00)
[2019-06-26] MEDS: aspirin 81mg tablet.DR PO SCH (09:11)
[2019-06-26] MEDS: lactobacillus rhamnosus 10,000 MMU CELLS/CAPSULE PO SCH (09:11)
[2019-06-26] MEDS: insulin Lispro (HumaLOG) vial - multi-dose SQ SCH ×2 (10:15→13:37)
[2019-06-26 11:00] VITALS: BP 145/77
[2019-06-26] MEDS ORDERED: acetaminophen 325mg tablet PO PRN (13:25)
--- NOTE | 2019-06-26 18:30 | NUR ---
DC inst provided to pt. IV DC'd, tip intact. All belongings sent w/pt. WC to front lobby.
== END 2019-06-26 18:30 | disposition home or self-care (01) | DRG 227 ==
LOC: ER 18:40 → ED HOLD 23:35 → UNDOADMIN 23:38 → ED HOLD 06-20 01:20 → SUR 3N 06-20 01:20
PROVIDERS: ADMIT Family Medicine; ATTEND Internal Medicine
PROC: 8E0W4CZ Robotic Assisted Procedure of Trunk Region, Percutaneous Endoscopic Approach (ICD-10-PCS; 2019-06-20)
PROC: 0DNU4ZZ Release Omentum, Percutaneous Endoscopic Approach (ICD-10-PCS; 2019-06-20)
PROC: 0DN84ZZ Release Small Intestine, Percutaneous Endoscopic Approach (ICD-10-PCS; 2019-06-20)
PROC: 0D9670Z Drainage of Stomach with Drainage Device, Via Natural or Artificial Opening (ICD-10-PCS; 2019-06-20)
PROC: 0WQF4ZZ Repair Abdominal Wall, Percutaneous Endoscopic Approach (ICD-10-PCS; principal; 2019-06-20 15:08)
PROC: BW211ZZ Computerized Tomography (CT Scan) of Abdomen and Pelvis using Low Osmolar Contrast (ICD-10-PCS; 2019-06-22)
DX: K43.0 Incisional hernia with obstruction, without gangrene (principal); K56.50 Intestinal adhesions [bands], unspecified as to partial versus complete obstruction; D72.829 Elevated white blood cell count, unspecified; E11.9 Type 2 diabetes mellitus without complications; E78.5 Hyperlipidemia, unspecified; E66.9 Obesity, unspecified; K80.20 Calculus of gallbladder without cholecystitis without obstruction; G47.33 Obstructive sleep apnea (adult) (pediatric); F32.9 Major depressive disorder, single episode, unspecified; J44.9 Chronic obstructive pulmonary disease, unspecified; G89.29 Other chronic pain; K21.9 Gastro-esophageal reflux disease without esophagitis; M19.90 Unspecified osteoarthritis, unspecified site; F15.10 Other stimulant abuse, uncomplicated; R09.81 Nasal congestion; M54.9 Dorsalgia, unspecified; I10 Essential (primary) hypertension; I25.10 Atherosclerotic heart disease of native coronary artery without angina pectoris; I69.349 Monoplegia of lower limb following cerebral infarction affecting unspecified side; Z59.0 Homelessness; Z79.82 Long term (current) use of aspirin; Z80.3 Family history of malignant neoplasm of breast; Z87.891 Personal history of nicotine dependence; Z90.710 Acquired absence of both cervix and uterus; Z68.36 Body mass index [BMI] 36.0-36.9, adult; Z88.8 Allergy status to other drugs, medicaments and biological substances; Z98.51 Tubal ligation status; Z79.899 Other long term (current) drug therapy; Z79.4 Long term (current) use of insulin
CPT/HCPCS: 36415; 74176; 80053; 81001; 81025; 82150; 82948; 83605; 83690; 83735; 84100; 84145; 85025; 87077; 87081; 87088; 87186; 93005; 97110; 97112; 97116; 97161; 97530; 99285; A4215; A4618; C1758; C9290; G0378; J0360; J0694; J1100; J1170; J1815; J2001; J2175; J2212; J2250; J2370; J2405; J2543; J2704; J2710; J3010; J3475; J3490; J7030; J7120; P9045; Q9963; Q9967

== ENCOUNTER 2019-08-24 13:11 | Emergency (ER) | payer MEDICAID ==
[~2019-08-24] VITALS: Ht 157.5 cm; Wt 90.9 kg
[2019-08-24 13:35] LABS: BASOPHILS # (AUTO) 0.1 X10'3 (0-0.2); BASOPHILS % (AUTO) 0.7 % (0-1); EOSINOPHILS # (AUTO) 0.3 X10'3 (0-0.9); EOSINOPHILS % (AUTO) 2.8 % (0-6); HEMATOCRIT 40.6 % (35.0-45.0); LYMPHOCYTES % (AUTO) 20.6 % (21-51); MEAN CORPUSCULAR HEMOGLOBIN 25.9 PG (27.0-31.0); MEAN CORPUSCULAR HGB CONC 31.9 g/dL (33.0-36.5); MEAN CORPUSCULAR VOLUME 81.3 FL (78-98); MEAN PLATELET VOLUME 8.6 FL (7.4-10.4); MONOCYTES # (AUTO) 0.7 X10'3 (0-0.9); MONOCYTES % (AUTO) 7.3 % (2-12); NEUTROPHILS # (AUTO) 6.5 X10'3 (1.8-7.7); NEUTROPHILS % (AUTO) 68.6 % (42-75); PLATELET COUNT 287 X10'3 (140-440); WHITE BLOOD COUNT 9.5 X10'3 (4.5-11.0)
[2019-08-24 14:02] LABS: ALANINE AMINOTRANSFERASE 18 U/L (12-78); ALBUMIN 2.8 G/DL (3.4-5.0); ALBUMIN/GLOBULIN RATIO 0.5 (1.1-1.5); ALKALINE PHOSPHATASE 129 IU/L (46-116); ANION GAP 7 (8-16); ASPARTATE AMINO TRANSFERASE 16 U/L (10-37); BILIRUBIN,TOTAL 0.1 MG/DL (0.1-1.0); BLOOD UREA NITROGEN 23 MG/DL (7-18); BUN/CREATININE RATIO 26.7 (6.6-38.0); CALCIUM 9.1 MG/DL (8.5-10.1); CHLORIDE 105 MMOL/L (99-107); CREATININE 0.86 MG/DL (0.40-0.90); ETHANOL < 0.010 GM/DL (0.0-0.010); GLUCOSE 257 MG/DL (70-104); POTASSIUM 4.4 MMOL/L (3.5-5.1); SODIUM 142 MMOL/L (135-145); TOTAL CARBON DIOXIDE 29.6 MMOL/L (24-32); TOTAL PROTEIN 7.9 G/DL (6.4-8.2); eGFR 69 ML/MIN
[2019-08-24 15:05] LABS: CLARITY,URINE CLEAR (Clear); COLOR,URINE YELLOW (Yellow); GLUCOSE, URINE 500 mg/dl (Neg); KETONES,URINE NEGATIVE (Neg); LEUKOCYTE ESTERASE ,URINE NEGATIVE (Neg); NITRITES, URINE NEGATIVE (Neg); OCCULT BLOOD,URINE TRACE-INTACT (Neg); PROTEIN,URINE 100 mg/dl (Neg); UROBILINOGEN,URINE 0.2 E.U/dL (0.2-1.0)
[2019-08-24 15:09] LABS: UA COLLECTION TYPE CLN CATCH MIDSTREAM
[2019-08-24 15:12] LABS: BACTERIA,URINE FEW /HPF (Neg); RBC,URINE 0-2 /HPF (0-2); SQUAMOUS EPITHELIAL CELL,UR FEW /LPF (FEW); WBC,URINE 0-4 /HPF (0-4)
[2019-08-24 15:13] LABS: URINE AMPHETAMINE SCREEN POSITIVE (Neg); URINE BARBITUATE SCREEN NEGATIVE (Neg); URINE BENZODIAZEPINES SCREEN NEGATIVE (Neg); URINE CANNABINOID SCREEN NEGATIVE (Neg); URINE COCAINE SCREEN NEGATIVE (Neg); URINE METHADONE SCREEN NEGATIVE (Neg); URINE OPIATE SCREEN NEGATIVE (Neg); URINE PHENCYCLIDINE SCREEN NEGATIVE (Neg)
[2019-08-24 16:09] VITALS: BP 105/82
== END 2019-08-24 16:11 | disposition home or self-care (01) ==
LOC: ER 13:11
DX: R45.851 Suicidal ideations (principal); F15.10 Other stimulant abuse, uncomplicated; H57.89 Other specified disorders of eye and adnexa; R53.1 Weakness; I10 Essential (primary) hypertension; J45.909 Unspecified asthma, uncomplicated; G47.30 Sleep apnea, unspecified; K21.9 Gastro-esophageal reflux disease without esophagitis; E11.9 Type 2 diabetes mellitus without complications; M19.90 Unspecified osteoarthritis, unspecified site; G89.29 Other chronic pain; F32.9 Major depressive disorder, single episode, unspecified; Z86.73 Personal history of transient ischemic attack (TIA), and cerebral infarction without residual deficits; Z90.710 Acquired absence of both cervix and uterus; Z98.51 Tubal ligation status; Z59.0 Homelessness; Z88.1 Allergy status to other antibiotic agents; Z88.2 Allergy status to sulfonamides; Z79.82 Long term (current) use of aspirin; Z79.4 Long term (current) use of insulin; Z79.899 Other long term (current) drug therapy
CPT/HCPCS: 36415; 70450; 71045; 80053; 80305; 80320; 81001; 85025; 85610; 93005; 99285

== ENCOUNTER 2019-12-03 19:31 | Emergency (ER) | payer MEDICAID ==
[~2019-12-03] VITALS: Ht 157.5 cm; Wt 90.9 kg
[2019-12-03 20:37] LABS: BASOPHILS # (AUTO) 0.1 X10'3 (0-0.2); BASOPHILS % (AUTO) 0.7 % (0-1); EOSINOPHILS # (AUTO) 0.3 X10'3 (0-0.9); EOSINOPHILS % (AUTO) 2.9 % (0-6); HEMATOCRIT 39.3 % (35.0-45.0); HEMOGLOBIN 12.8 g/dl (12.0-16.0); MEAN CORPUSCULAR HEMOGLOBIN 26.8 PG (27.0-31.0); MEAN CORPUSCULAR HGB CONC 32.5 g/dL (33.0-36.5); MEAN CORPUSCULAR VOLUME 82.7 FL (78-98); MEAN PLATELET VOLUME 8.4 FL (7.4-10.4); MONOCYTES # (AUTO) 0.7 X10'3 (0-0.9); NEUTROPHILS # (AUTO) 6.6 X10'3 (1.8-7.7); NEUTROPHILS % (AUTO) 68.4 % (42-75); PLATELET COUNT 293 X10'3 (140-440); RED BLOOD COUNT 4.75 X10'6 (4.20-5.60); RED CELL DISTRIBUTION WIDTH 14.5 % (11.5-14.5); WHITE BLOOD COUNT 9.6 X10'3 (4.5-11.0)
[2019-12-03 20:47] LABS: ALANINE AMINOTRANSFERASE 25 U/L (12-78); ALBUMIN 2.5 G/DL (3.4-5.0); ALBUMIN/GLOBULIN RATIO 0.5 (1.1-1.5); ALKALINE PHOSPHATASE 117 IU/L (46-116); ANION GAP 8 (8-16); ASPARTATE AMINO TRANSFERASE 15 U/L (10-37); BILIRUBIN,TOTAL 0.2 MG/DL (0.1-1.0); BLOOD UREA NITROGEN 19 MG/DL (7-18); CALCIUM 8.6 MG/DL (8.5-10.1); CHLORIDE 104 MMOL/L (99-107); CREATININE 0.95 MG/DL (0.40-0.90); GLUCOSE 320 MG/DL (70-104); LIPASE 119 U/L (73-393); POTASSIUM 3.8 MMOL/L (3.5-5.1); SODIUM 139 MMOL/L (135-145); TOTAL CARBON DIOXIDE 27.5 MMOL/L (24-32); TOTAL PROTEIN 7.4 G/DL (6.4-8.2); eGFR 61 ML/MIN
[2019-12-03 21:21] LABS: URINE HCG NEGATIVE (NEG)
[2019-12-03 21:24] LABS: CLARITY,URINE SLIGHTLY CLOUDY (Clear); COLOR,URINE YELLOW (Yellow); GLUCOSE, URINE >=1000 mg/dl (Neg); KETONES,URINE NEGATIVE (Neg); LEUKOCYTE ESTERASE ,URINE NEGATIVE (Neg); NITRITES, URINE NEGATIVE (Neg); OCCULT BLOOD,URINE TRACE-INTACT (Neg); PROTEIN,URINE >=300 mg/dl (Neg); UROBILINOGEN,URINE 0.2 E.U/dL (0.2-1.0)
[2019-12-03 21:25] LABS: UA COLLECTION TYPE CLN CATCH MIDSTREAM
[2019-12-03] MEDS ORDERED: normal saline 1000ML IV soln IVB ONE (21:25)
[2019-12-03 21:50] LABS: BACTERIA,URINE 1+ /HPF (Neg); SQUAMOUS EPITHELIAL CELL,UR FEW /LPF (FEW)
[2019-12-03] MEDS ORDERED: insulin regular, human 10 units/0.1 ml syringe SQ ONE (22:15)
--- NOTE | 2019-12-03 22:15 | NUR ---
TALKED TO PTS , HE WAS CHECKIN TRACY PTS STATUS AND INFORMED US THAT HER BS USUALLY RANGES BETWEEN 200-300.
[2019-12-03] MEDS ORDERED: fluconazole 150mg tablet PO ONE (22:20)
[2019-12-03] MEDS ORDERED: CefTRIAXone 2gm/D5W 50ml 50 ML IV ONE (23:00)
[2019-12-03] MEDS ORDERED: CEPH500C5 PO (23:40)
--- NOTE | 2019-12-03 23:43 | NUR ---
Called pt's to let him know that the pt was being discharged. He said he would be up here in about 15 minutes.
[2019-12-03 23:57] VITALS: BP 163/91
--- NOTE | 2019-12-06 08:25 | NUR ---
Attempted to f/u on lab results. Contact number on file was incorrect but person who answered did have a daughter named Kaya, whose cell number was provided. LVM on Kaya's cell.She returned call but her last name was Ravi Dye. She indicated she has been to ED ~ 1 month ago w/ daughter for rash. Apologized and affirmed her request to remove her mother and self's numbers from this pt would occur. F/U w/ Registration;numbers removed. Called pt's "next of kin" contact and LVM requesting call back for possible correct pt contact info.
== END 2019-12-04 00:02 | disposition home or self-care (01) ==
LOC: ER 19:31
DX: E11.65 Type 2 diabetes mellitus with hyperglycemia (principal); F15.10 Other stimulant abuse, uncomplicated; R53.83 Other fatigue; I11.0 Hypertensive heart disease with heart failure; I50.9 Heart failure, unspecified; J45.909 Unspecified asthma, uncomplicated; K21.9 Gastro-esophageal reflux disease without esophagitis; M19.90 Unspecified osteoarthritis, unspecified site; G89.29 Other chronic pain; F32.9 Major depressive disorder, single episode, unspecified; Z86.73 Personal history of transient ischemic attack (TIA), and cerebral infarction without residual deficits; Z90.710 Acquired absence of both cervix and uterus; Z98.51 Tubal ligation status; Z98.890 Other specified postprocedural states; Z72.89 Other problems related to lifestyle; Z59.0 Homelessness; Z88.1 Allergy status to other antibiotic agents; Z88.2 Allergy status to sulfonamides; Z88.8 Allergy status to other drugs, medicaments and biological substances; Z79.82 Long term (current) use of aspirin; Z79.899 Other long term (current) drug therapy; Z79.2 Long term (current) use of antibiotics
CPT/HCPCS: 36415; 80053; 81001; 81025; 82948; 83690; 85025; 87077; 87088; 87186; 96365; 96372; 99284; J0696; J1815; J7030

== ENCOUNTER 2020-01-01 00:36 | Emergency (ER) | payer MEDICAID ==
[~2020-01-01] VITALS: Ht 157.5 cm; Wt 82.0 kg
[2020-01-01] MEDS ORDERED: normal saline 1000ML IV soln IVB ONE (01:40)
[2020-01-01 02:25] LABS: BASOPHILS # (AUTO) 0.2 X10'3 (0-0.2); BASOPHILS % (AUTO) 1.5 % (0-1); EOSINOPHILS # (AUTO) 0.3 X10'3 (0-0.9); EOSINOPHILS % (AUTO) 2.7 % (0-6); HEMATOCRIT 42.8 % (35.0-45.0); HEMOGLOBIN 14.1 g/dl (12.0-16.0); LYMPHOCYTES % (AUTO) 18.4 % (21-51); MEAN CORPUSCULAR HEMOGLOBIN 27.4 PG (27.0-31.0); MEAN CORPUSCULAR HGB CONC 32.9 g/dL (33.0-36.5); MEAN CORPUSCULAR VOLUME 83.5 FL (78-98); MEAN PLATELET VOLUME 8.6 FL (7.4-10.4); MONOCYTES # (AUTO) 0.8 X10'3 (0-0.9); MONOCYTES % (AUTO) 7.1 % (2-12); NEUTROPHILS # (AUTO) 7.5 X10'3 (1.8-7.7); NEUTROPHILS % (AUTO) 70.3 % (42-75); PLATELET COUNT 298 X10'3 (140-440); RED BLOOD COUNT 5.12 X10'6 (4.20-5.60); RED CELL DISTRIBUTION WIDTH 14.6 % (11.5-14.5); WHITE BLOOD COUNT 10.7 X10'3 (4.5-11.0)
[2020-01-01 02:37] VITALS: BP 155/76
[2020-01-01 02:39] LABS: ALANINE AMINOTRANSFERASE 30 U/L (12-78); ALBUMIN 3.1 G/DL (3.4-5.0); ALBUMIN/GLOBULIN RATIO 0.6 (1.1-1.5); ALKALINE PHOSPHATASE 131 IU/L (46-116); ANION GAP 6 (8-16); ASPARTATE AMINO TRANSFERASE 15 U/L (10-37); BILIRUBIN,TOTAL 0.2 MG/DL (0.1-1.0); BLOOD UREA NITROGEN 21 MG/DL (7-18); BUN/CREATININE RATIO 19.1 (6.6-38.0); CALCIUM 9.1 MG/DL (8.5-10.1); CHLORIDE 99 MMOL/L (99-107); GLUCOSE 409 MG/DL (70-104); MAGNESIUM 1.8 MG/DL (1.5-2.4); POTASSIUM 4.1 MMOL/L (3.5-5.1); SODIUM 134 MMOL/L (135-145); TOTAL CARBON DIOXIDE 29.4 MMOL/L (24-32); TOTAL PROTEIN 8.5 G/DL (6.4-8.2); eGFR 51 ML/MIN
[2020-01-01] MEDS ORDERED: FLUC100T PO (03:01)
== END 2020-01-01 03:29 | disposition home or self-care (01) ==
LOC: ER 00:37
DX: M79.3 Panniculitis, unspecified (principal); B37.9 Candidiasis, unspecified; R00.0 Tachycardia, unspecified; I11.0 Hypertensive heart disease with heart failure; I50.9 Heart failure, unspecified; J45.909 Unspecified asthma, uncomplicated; K21.9 Gastro-esophageal reflux disease without esophagitis; G47.30 Sleep apnea, unspecified; E11.9 Type 2 diabetes mellitus without complications; M19.90 Unspecified osteoarthritis, unspecified site; G89.29 Other chronic pain; F32.9 Major depressive disorder, single episode, unspecified; F15.90 Other stimulant use, unspecified, uncomplicated; Z86.73 Personal history of transient ischemic attack (TIA), and cerebral infarction without residual deficits; Z90.710 Acquired absence of both cervix and uterus; Z98.51 Tubal ligation status; Z98.890 Other specified postprocedural states; Z59.0 Homelessness; Z88.1 Allergy status to other antibiotic agents; Z88.2 Allergy status to sulfonamides; Z88.8 Allergy status to other drugs, medicaments and biological substances; Z79.82 Long term (current) use of aspirin; Z79.899 Other long term (current) drug therapy
CPT/HCPCS: 36415; 71045; 80053; 83735; 84145; 85025; 93005; 99285; J7030

== ENCOUNTER 2020-12-08 05:21 | Inpatient (IN) | payer MEDICAID ==
[~2020-12-08] VITALS: Ht 157.5 cm; Wt 90.0 kg
[2020-12-08 06:14] LABS: CLARITY,URINE SLIGHTLY CLOUDY (Clear); COLOR,URINE YELLOW (Yellow); GLUCOSE, URINE >=1000 mg/dl (Neg); KETONES,URINE NEGATIVE (Neg); LEUKOCYTE ESTERASE ,URINE NEGATIVE (Neg); NITRITES, URINE POSITIVE (Neg); OCCULT BLOOD,URINE MODERATE (Neg); PH,URINE 5.5 (4.8-8.0); PROTEIN,URINE >=300 mg/dl (Neg); UROBILINOGEN,URINE 0.2 E.U/dL (0.2-1.0)
[2020-12-08 06:20] LABS: UA COLLECTION TYPE FOLEY CATH
[2020-12-08 06:31] LABS: FINE GRANULAR CAST 0-3 /LPF (NEGATIVE); HYALINE CASTS 0-3 /LPF (NEGATIVE); SQUAMOUS EPITHELIAL CELL,UR MODERATE /LPF (FEW); WBC CLUMPS,URINE FEW /HPF (NEGATIVE)
[2020-12-08 06:32] LABS: BACTERIA,URINE 3+ /HPF (Neg)
[2020-12-08 06:36] LABS: BASOPHILS # (AUTO) 0.1 X10'3 (0-0.2); BASOPHILS % (AUTO) 1.1 % (0-1); EOSINOPHILS # (AUTO) 0.2 X10'3 (0-0.9); EOSINOPHILS % (AUTO) 1.7 % (0-6); HEMATOCRIT 45.6 % (35.0-45.0); HEMOGLOBIN 15.1 g/dl (12.0-16.0); LYMPHOCYTES # (AUTO) 2.5 X10'3 (1.1-4.8); LYMPHOCYTES % (AUTO) 20.5 % (21-51); MEAN CORPUSCULAR HEMOGLOBIN 28.7 PG (27.0-31.0); MEAN CORPUSCULAR VOLUME 86.9 FL (78-98); MEAN PLATELET VOLUME 9.1 FL (7.4-10.4); MONOCYTES % (AUTO) 8.1 % (2-12); NEUTROPHILS # (AUTO) 8.4 X10'3 (1.8-7.7); NEUTROPHILS % (AUTO) 68.6 % (42-75); PLATELET COUNT 277 X10'3 (140-440); RED BLOOD COUNT 5.25 X10'6 (4.20-5.60); RED CELL DISTRIBUTION WIDTH 13.9 % (11.5-14.5); WHITE BLOOD COUNT 12.3 X10'3 (4.5-11.0)
[2020-12-08 06:38] LABS: AMORPHOUS URATES 1+
[2020-12-08 06:54] LABS: URINE HCG NEGATIVE (NEG)
[2020-12-08 07:02] LABS: ALANINE AMINOTRANSFERASE 23 U/L (12-78); ALBUMIN/GLOBULIN RATIO 0.6 (1.1-1.5); ALKALINE PHOSPHATASE 101 IU/L (46-116); ANION GAP 9 (8-16); ASPARTATE AMINO TRANSFERASE 15 U/L (10-37); BILIRUBIN,TOTAL 0.3 MG/DL (0.1-1.0); BLOOD UREA NITROGEN 31 MG/DL (7-18); BUN/CREATININE RATIO 28.4 (6.6-38.0); CHLORIDE 103 MMOL/L (99-107); CREATININE 1.09 MG/DL (0.40-0.90); GLUCOSE 254 MG/DL (70-104); LIPASE 60 U/L (73-393); POTASSIUM 4.1 MMOL/L (3.5-5.1); SODIUM 140 MMOL/L (135-145); TOTAL CARBON DIOXIDE 28.2 MMOL/L (24-32); TOTAL PROTEIN 7.7 G/DL (6.4-8.2); eGFR 52 ML/MIN
[2020-12-08] MEDS ORDERED: pantoprazole 40 MG vial IV ONE (07:40)
[2020-12-08] MEDS ORDERED: normal saline 1000ML IV soln IV ONE (07:40)
[2020-12-08] MEDS ORDERED: CefTRIAXone 2gm/D5W 50ml BAG 50 ML IV ONE (07:45)
[2020-12-08] MEDS: pantoprazole 40MG/NS 100ML BAG 100 ML IV SCH ×3 (08:04→18:58)
[2020-12-08 09:37] LABS: PARTIAL THROMBOPLASTIN TIME 23 SECONDS (22-32)
[2020-12-08] MEDS ORDERED: MESSAGE TO PHARMACY PO ONE (11:30)
[2020-12-08] MEDS ORDERED: dextrose ORAL solution 15 GM/59 ML bottle PO PRN ×2 (11:30)
[2020-12-08] MEDS ORDERED: acetaminophen 325mg tablet PO PRN ×2 (11:30)
[2020-12-08] MEDS ORDERED: morphine 2 MG/ML inj. syringe IV PRN (11:30)
[2020-12-08] MEDS ORDERED: HYDROcodone/acetaminophen 10/325mg tab PO PRN (11:30)
[2020-12-08] MEDS ORDERED: dextrose 50%-water 50ml dispensing syringe IV PRN ×2 (11:30)
[2020-12-08] MEDS ORDERED: glucagon, human recombinant 1mg kit SUBCUT PRN (11:30)
[2020-12-08] MEDS ORDERED: mag hydrox/Alum hydrox/simeth 30ml oral suspension PO PRN (11:30)
[2020-12-08] MEDS ORDERED: ondansetron/PF 4mg/2ml inj IV PRN (11:30)
[2020-12-08] MEDS ORDERED: insulin Lispro (HumaLOG) vial - multi-dose SQ SCH (11:30)
[2020-12-08] MEDS ORDERED: metoclopramide 5 mg/ml inj IV PRN (11:30)
[2020-12-08] MEDS ORDERED: magnesium hydroxide 30ml (MOM) UD suspension PO PRN (11:30)
[2020-12-08] MEDS ORDERED: HYDROcodone/acetaminophen 5mg/325mg tablet PO PRN (11:30)
[2020-12-08 12:08] LABS: HEMOGLOBIN A1C 9.1 % (4.5-6.2)
--- NOTE | 2020-12-08 12:38 | NUR ---
Dr. Huang at bedside for evaluation of patient.
[2020-12-08] MEDS ORDERED: NO HOME MEDS PO (12:45)
--- NOTE | 2020-12-08 13:05 | NUR ---
Patient in room [facility]. I have received report from Sarah BANSAL and had the opportunity to ask questions and assume patient care.
[2020-12-08] MEDS: normal saline 1000ml 1,000 ML IV SCH ×2 (13:23→21:30)
--- NOTE | 2020-12-08 13:30 | NUR ---
patient orientated to room. NG in place minimal drainage. Accucheck 170. will continue to monitor.
[2020-12-08 15:39] VITALS: BP 130/80
[2020-12-08] MEDS: morphine 2 MG/ML inj. syringe IV PRN (17:58)
--- NOTE | 2020-12-08 18:53 | NUR ---
Problems reprioritized. Patient report given, questions answered & plan of care reviewed with margot BANSAL.
[2020-12-08] MEDS: docusate sod 100mg capsule PO SCH (19:52)
[2020-12-08] MEDS: diatr meglu/diatrizoate 30ml oral sol.-(3 dose) bottle PO SCH (22:36)
[2020-12-08] MEDS: insulin glargine (Lantus) pen - multi-dose SQ SCH (23:05)
[2020-12-09] VITALS: BP 159/90
[2020-12-09] MEDS: pantoprazole 40MG/NS 100ML BAG 100 ML IV SCH ×6 (01:00→21:00)
--- NOTE | 2020-12-09 06:43 | NUR ---
Patient in room [facility]. I have received report from margot BANSAL and had the opportunity to ask questions and assume patient care.
--- NOTE | 2020-12-09 06:56 | NUR ---
Patient in room [facility]. I have received report from Delia BANSAL and had the opportunity to ask questions and assume patient care.
--- NOTE | 2020-12-09 06:57 | NUR ---
Problems reprioritized. Patient report given, questions answered & plan of care reviewed with Delia BANSAL.
[2020-12-09 07:00] VITALS: BP 127/72
[2020-12-09] MEDS: diatr meglu/diatrizoate 30ml oral sol.-(3 dose) bottle PO SCH ×2 (07:03→10:21)
[2020-12-09 07:16] LABS: BASOPHILS # (AUTO) 0.1 X10'3 (0-0.2); EOSINOPHILS # (AUTO) 0.2 X10'3 (0-0.9); HEMATOCRIT 40.6 % (35.0-45.0); HEMOGLOBIN 13.1 g/dl (12.0-16.0); MEAN CORPUSCULAR HEMOGLOBIN 28.2 PG (27.0-31.0); MEAN CORPUSCULAR HGB CONC 32.3 g/dL (33.0-36.5)
[2020-12-09 07:19] LABS: EOSINOPHILS % (AUTO) 2.8 % (0-6); LYMPHOCYTES % (AUTO) 29.9 % (21-51); MEAN CORPUSCULAR VOLUME 87.4 FL (78-98); MONOCYTES # (AUTO) 0.5 X10'3 (0-0.9); MONOCYTES % (AUTO) 7.2 % (2-12); NEUTROPHILS # (AUTO) 3.9 X10'3 (1.8-7.7); NEUTROPHILS % (AUTO) 59.1 % (42-75); PLATELET COUNT 236 X10'3 (140-440); RED BLOOD COUNT 4.64 X10'6 (4.20-5.60); RED CELL DISTRIBUTION WIDTH 13.8 % (11.5-14.5); WHITE BLOOD COUNT 6.6 X10'3 (4.5-11.0)
[2020-12-09 07:28] LABS: ALBUMIN 2.3 G/DL (3.4-5.0); ANION GAP 7 (8-16); BLOOD UREA NITROGEN 18 MG/DL (7-18); BUN/CREATININE RATIO 20.5 (6.6-38.0); CALCIUM 7.6 MG/DL (8.5-10.1); CHLORIDE 112 MMOL/L (99-107); CREATININE 0.88 MG/DL (0.40-0.90); GLUCOSE 162 MG/DL (70-104); SODIUM 144 MMOL/L (135-145); TOTAL CARBON DIOXIDE 25.1 MMOL/L (24-32); eGFR 66 ML/MIN
[2020-12-09] MEDS: docusate sod 100mg capsule PO SCH ×2 (08:00→20:00)
[2020-12-09] MEDS ORDERED: ringers solution, lacted 1,000 ML IV ONE (10:05)
--- NOTE | 2020-12-09 10:56 | NUR ---
patient given oral contrast prep via ng tube. Tolerated CT , back in room . medicated x1 for pain. will continue to monitor
[2020-12-09 11:00] VITALS: BP 130/75
[2020-12-09] MEDS: normal saline 1000ml 1,000 ML IV SCH ×2 (11:13→17:30)
[2020-12-09] MEDS ORDERED: ringers solution, lacted 1,000 ML IV SCH (14:25)
[2020-12-09] MEDS ORDERED: morphine 2 MG/ML inj. syringe IV PRN (14:25)
[2020-12-09] MEDS ORDERED: ondansetron/PF 4mg/2ml inj IV PRN (14:25)
[2020-12-09] MEDS ORDERED: hydrALAZINE 20mg/ml inj. IV PRN (14:25)
[2020-12-09] MEDS ORDERED: labetalol 20mg/4ml (5mg/ml) syringe IV PRN (14:25)
[2020-12-09] MEDS ORDERED: fentaNYL/PF 50MCG/1 ML 2ML syringe IV PRN ×2 (14:25)
[2020-12-09] MEDS ORDERED: morphine 4 MG/ML inj SYRINge IV PRN (14:25)
--- NOTE | 2020-12-09 14:51 | NUR ---
Noted pt with T2DM, current A1c is 9.1%. Pt admit with c/o abdominal pain and diarrhea, admit for possible bowel obstruction. Pt currently NPO with an NG tube in place. Pt would benefit from DM education once stable. Will continue to follow. Addendum: 12/09/20 at [address] Amended: Links added.
[2020-12-09] MEDS: CefTRIAXone/D5W-Rocephin 1gm 50 ML IV SCH (17:42)
[2020-12-09] MEDS: morphine 2 MG/ML inj. syringe IV PRN (18:41)
--- NOTE | 2020-12-09 19:09 | NUR ---
NG clamped [address] kelly minimal drainage following this . 30 mls. medicated for pain with relief. patient had put out 400mls this am of greenish drainage prior to clamping tube. report given to margot BANSAL
[2020-12-09 20:00] VITALS: BP 141/76
[2020-12-09] MEDS: insulin glargine (Lantus) pen - multi-dose SQ SCH (21:00)
[2020-12-10 00:08] VITALS: BP 141/71
[2020-12-10] MEDS: pantoprazole 40MG/NS 100ML BAG 100 ML IV SCH ×3 (01:00→08:16)
--- NOTE | 2020-12-10 02:07 | NUR ---
Pt is NPO q6 BG 115. JT Addendum: 12/10/20 at 0208 by Meek Rivero RN Amended: Links added.
[2020-12-10] MEDS: morphine 2 MG/ML inj. syringe IV PRN (02:32)
--- NOTE | 2020-12-10 03:29 | NUR ---
Patient in room [facility]. I have received report from Karla BANSAL and had the opportunity to ask questions and assume patient care.
[2020-12-10] MEDS: normal saline 1000ml 1,000 ML IV SCH ×2 (03:30→08:17)
--- NOTE | 2020-12-10 03:32 | NUR ---
Patient in room [facility]. I have received report from Delia BANSAL and had the opportunity to ask questions and assume patient care.
[2020-12-10] MEDS ORDERED: famotidine 20mg tablet PO ONE (06:00)
[2020-12-10 06:30] VITALS: BP 142/76
--- NOTE | 2020-12-10 06:30 | NUR ---
Patient in room [facility]. I have received report from NIMISHA Narvaez and had the opportunity to ask questions and assume patient care.
[2020-12-10 06:32] LABS: BASOPHILS # (AUTO) 0.1 X10'3 (0-0.2); BASOPHILS % (AUTO) 0.7 % (0-1); EOSINOPHILS # (AUTO) 0.2 X10'3 (0-0.9); EOSINOPHILS % (AUTO) 2.4 % (0-6); HEMOGLOBIN 12.4 g/dl (12.0-16.0); LYMPHOCYTES # (AUTO) 2.3 X10'3 (1.1-4.8); LYMPHOCYTES % (AUTO) 29.4 % (21-51); MEAN CORPUSCULAR HEMOGLOBIN 28.5 PG (27.0-31.0); MEAN CORPUSCULAR HGB CONC 33.5 g/dL (33.0-36.5); MEAN CORPUSCULAR VOLUME 84.9 FL (78-98); MONOCYTES # (AUTO) 0.6 X10'3 (0-0.9); MONOCYTES % (AUTO) 7.6 % (2-12); NEUTROPHILS # (AUTO) 4.6 X10'3 (1.8-7.7); NEUTROPHILS % (AUTO) 59.9 % (42-75); PLATELET COUNT 219 X10'3 (140-440); RED BLOOD COUNT 4.36 X10'6 (4.20-5.60); RED CELL DISTRIBUTION WIDTH 13.5 % (11.5-14.5); WHITE BLOOD COUNT 7.7 X10'3 (4.5-11.0)
[2020-12-10 07:07] LABS: ALBUMIN 2.2 G/DL (3.4-5.0); ANION GAP 7 (8-16); BLOOD UREA NITROGEN 13 MG/DL (7-18); BUN/CREATININE RATIO 14.8 (6.6-38.0); CALCIUM 7.5 MG/DL (8.5-10.1); CHLORIDE 112 MMOL/L (99-107); CREATININE 0.88 MG/DL (0.40-0.90); GLUCOSE 97 MG/DL (70-104); POTASSIUM 3.7 MMOL/L (3.5-5.1); SODIUM 143 MMOL/L (135-145); TOTAL CARBON DIOXIDE 23.9 MMOL/L (24-32); eGFR 66 ML/MIN
[2020-12-10] MEDS: CefTRIAXone/D5W-Rocephin 1gm 50 ML IV SCH (09:44)
[2020-12-10] MEDS: docusate sod 100mg capsule PO SCH (09:45)
[2020-12-10 11:00] VITALS: BP 149/72
--- NOTE | 2020-12-10 12:45 | NUR ---
F/u: Pt seen at bedside for written and verbal DM education. Pt [facility] though only goes as needed rather than routinely. Pt reports she has an insulin rx for DM management however has difficulty getting, taking, and storing it. Noted that SW has been consulted and has already seen pt. Per pt she did discuss this with the SW. Pt states she only checks her BG levels sometimes when she can. RD inquired about limitations preventing her from checking her BG levels. Per pt she has not had a glucometer for a couple of months because "the helpdesk manager took it". RD encouraged pt to f/u with her MD regarding reported difficulties as having her DM medications per rx and checking BG levels are important factors for DM management. Pt verbalized understanding and reports she currently does not have an appointment scheduled with her MD though is willing to get one scheduled. RD informed pt of OTC glucometer in the mean time though pt states she does not have the resources to get to the store. Pt appeared distracted during RD visit d/t watching TV. Pt provided with RD contact information and was encouraged to reach out for questions. Pt endorses a good appetite and denies food allergies or difficulty chewing/swallowing. Will continue to follow. Addendum: 12/10/20 at [address] Amended: Links added.
--- NOTE | 2020-12-10 16:50 | NUR ---
DC inst provided to pt. IV DC'd, tip intact. All belongings sent w/pt. Provided pt w/2 sack lunches to go. WC to cab.
[2020-12-10] MEDS ORDERED: lactobacillus rhamnosus 10,000 MMU CELLS/CAPSULE PO SCH (20:00)
[2020-12-14 09:18] LABS: OCCULT BLOOD STOOL POSITIVE (Neg)
== END 2020-12-10 16:50 | disposition home or self-care (01) | DRG 247 ==
LOC: ER 05:23 → ED HOLD 11:32 → SUR 3N 15:05
PROVIDERS: ADMIT Internal Medicine; ATTEND Internal Medicine
PROC: 0D9670Z Drainage of Stomach with Drainage Device, Via Natural or Artificial Opening (ICD-10-PCS; principal; 2020-12-08)
DX: K56.601 Complete intestinal obstruction, unspecified as to cause (principal); I11.0 Hypertensive heart disease with heart failure; I50.9 Heart failure, unspecified; K42.0 Umbilical hernia with obstruction, without gangrene; E11.65 Type 2 diabetes mellitus with hyperglycemia; F15.90 Other stimulant use, unspecified, uncomplicated; G47.30 Sleep apnea, unspecified; G89.29 Other chronic pain; K21.9 Gastro-esophageal reflux disease without esophagitis; M19.90 Unspecified osteoarthritis, unspecified site; Z20.822 Contact with and (suspected) exposure to COVID-19; F32.9 Major depressive disorder, single episode, unspecified; M54.9 Dorsalgia, unspecified; J45.909 Unspecified asthma, uncomplicated; K80.20 Calculus of gallbladder without cholecystitis without obstruction; K92.2 Gastrointestinal hemorrhage, unspecified; N39.0 Urinary tract infection, site not specified; Z80.3 Family history of malignant neoplasm of breast; Z83.3 Family history of diabetes mellitus; Z86.73 Personal history of transient ischemic attack (TIA), and cerebral infarction without residual deficits; Z90.710 Acquired absence of both cervix and uterus; Z59.0 Homelessness; Z88.2 Allergy status to sulfonamides; Z88.8 Allergy status to other drugs, medicaments and biological substances; Z98.51 Tubal ligation status; Z79.899 Other long term (current) drug therapy; Z79.82 Long term (current) use of aspirin; Z79.4 Long term (current) use of insulin
CPT/HCPCS: 36415; 71045; 74176; 80048; 80053; 81001; 81025; 82272; 82948; 83036; 83690; 83880; 84484; 85025; 85610; 85730; 86885; 86900; 86901; 87077; 87081; 87088; 87186; 87635; 93005; 97116; 97161; 97530; 99285; C9113; C9803; G0378; J0696; J1815; J2270; J2405; J7030; Q9963

== ENCOUNTER 2021-01-02 15:23 | Emergency (ER) | payer MEDICAID ==
[~2021-01-02] VITALS: Ht 157.5 cm; Wt 104.5 kg
[2021-01-02 16:10] LABS: BASOPHILS # (AUTO) 0.1 X10'3 (0-0.2); EOSINOPHILS # (AUTO) 0.2 X10'3 (0-0.9); EOSINOPHILS % (AUTO) 1.8 % (0-6); HEMOGLOBIN 14.3 g/dl (12.0-16.0); LYMPHOCYTES # (AUTO) 2.4 X10'3 (1.1-4.8); MEAN CORPUSCULAR HEMOGLOBIN 28.6 PG (27.0-31.0); MEAN CORPUSCULAR HGB CONC 33.4 g/dL (33.0-36.5); MEAN CORPUSCULAR VOLUME 85.7 FL (78-98); MEAN PLATELET VOLUME 8.5 FL (7.4-10.4); MONOCYTES # (AUTO) 0.6 X10'3 (0-0.9); MONOCYTES % (AUTO) 6.3 % (2-12); NEUTROPHILS # (AUTO) 6.6 X10'3 (1.8-7.7); NEUTROPHILS % (AUTO) 66.9 % (42-75); PLATELET COUNT 258 X10'3 (140-440); RED BLOOD COUNT 5.01 X10'6 (4.20-5.60); RED CELL DISTRIBUTION WIDTH 13.8 % (11.5-14.5); WHITE BLOOD COUNT 9.9 X10'3 (4.5-11.0)
[2021-01-02 16:25] LABS: ALANINE AMINOTRANSFERASE 30 U/L (12-78); ALBUMIN 2.6 G/DL (3.4-5.0); ALBUMIN/GLOBULIN RATIO 0.6 (1.1-1.5); ALKALINE PHOSPHATASE 122 IU/L (46-116); ANION GAP 7 (8-16); ASPARTATE AMINO TRANSFERASE 17 U/L (10-37); BILIRUBIN,TOTAL 0.2 MG/DL (0.1-1.0); BLOOD UREA NITROGEN 20 MG/DL (7-18); BUN/CREATININE RATIO 19.6 (6.6-38.0); CALCIUM 8.4 MG/DL (8.5-10.1); CHLORIDE 104 MMOL/L (99-107); CREATININE 1.02 MG/DL (0.40-0.90); GLUCOSE 240 MG/DL (70-104); POTASSIUM 4.6 MMOL/L (3.5-5.1); SODIUM 139 MMOL/L (135-145); eGFR 56 ML/MIN
[2021-01-02 16:36] LABS: ETHANOL < 0.010 GM/DL (0.0-0.010)
[2021-01-02 19:08] VITALS: BP 119/85
== END 2021-01-02 19:11 | disposition home or self-care (01) ==
LOC: ER 15:23
DX: F15.10 Other stimulant abuse, uncomplicated (principal); Z20.822 Contact with and (suspected) exposure to COVID-19; R53.1 Weakness; R60.9 Edema, unspecified; J45.909 Unspecified asthma, uncomplicated; E11.9 Type 2 diabetes mellitus without complications; K21.9 Gastro-esophageal reflux disease without esophagitis; I11.0 Hypertensive heart disease with heart failure; I50.9 Heart failure, unspecified; M19.90 Unspecified osteoarthritis, unspecified site; G47.39 Other sleep apnea; Z86.73 Personal history of transient ischemic attack (TIA), and cerebral infarction without residual deficits; Z59.0 Homelessness; Z88.1 Allergy status to other antibiotic agents; Z88.2 Allergy status to sulfonamides; Z88.8 Allergy status to other drugs, medicaments and biological substances; Z90.710 Acquired absence of both cervix and uterus; Z98.51 Tubal ligation status; Z98.890 Other specified postprocedural states
CPT/HCPCS: 36415; 71045; 80053; 80320; 83880; 84484; 85025; 87635; 93005; 99285; C9803

== ENCOUNTER 2023-02-15 14:47 | Inpatient (IN) | payer MEDICAID, OTHER ==
[2023-02-15] VITALS (12 sets, daily range): BP systolic 52–148; BP diastolic 30–98; PULSE 90–133; RESP 27–37; TEMP 97.8; O2SAT 93–100
[~2023-02-15] VITALS: Ht 154.9 cm; Wt 100.5 kg
[~2023-02-15 14:47] MED LIST changes: -ASPI-1265 PO; -CARV-50 PO; +CLOP-32 PO; -DOXY-224 PO; +GABA300C PO; -INSU100I31; +INSU100V11 SQ; +INSU100V9 SQ; +OFLO5DRO OP; +adenosine 3mg/ml 2ml vial IV ONE; +epiNEPHrine 0.1mg/ml 10ml syringe ONE; +etomidate 2mg/ml inj. ONE; +rocuronium 10mg/ml inj IV ONE; +sod chloride 0.9% 10ml flush syringe IV ONE; +sodium bicarbonate (8.4%) 1 mEq/ml syringe ONE
[2023-02-15] MEDS ORDERED: diltiazem 5mg/ml 5ml inj. IV ONE (15:05)
[2023-02-15] MEDS ORDERED: vancomycin 1,750 MG in NS 350ml IV soln IV ONE (15:20)
--- NOTE | 2023-02-15 15:22 | NUR ---
Dr. Morris, RT and 2 other RNs at bedside. Pt being intubated
--- NOTE | 2023-02-15 15:27 | NUR ---
Rocuronium 50 and Etomidate 20 given during RSI by Sultana RN
[2023-02-15 15:28] LABS: BILIRUBIN,URINE NEGATIVE (Neg); COLOR,URINE YELLOW (Yellow); GLUCOSE, URINE >=1000 mg/dl (Neg); KETONES,URINE NEGATIVE (Neg); LEUKOCYTE ESTERASE ,URINE NEGATIVE (Neg); NITRITES, URINE POSITIVE (Neg); OCCULT BLOOD,URINE TRACE-INTACT (Neg); PH,URINE 5.5 (4.8-8.0); PROTEIN,URINE 100 mg/dl (Neg); UROBILINOGEN,URINE 0.2 E.U/dL (0.2-1.0)
[2023-02-15] MEDS ORDERED: sodium bicarbonate (8.4%) inj. 1 MEQ/ML ML IV ONE ×2 (15:45)
--- NOTE | 2023-02-15 15:45 | NUR ---
Patient has ROSC.
--- NOTE | 2023-02-15 15:47 | NUR ---
Report given to Dino BANSAL to take over the care
[2023-02-15 15:53] LABS: UA COLLECTION TYPE FOLEY CATH
[2023-02-15 15:54] LABS: BASOPHILS # (AUTO) 0.1 X10'3 (0-0.2); BASOPHILS % (AUTO) 0.3 % (0-1); EOSINOPHILS % (AUTO) 0.1 % (0-6); LYMPHOCYTES # (AUTO) 1.5 X10'3 (1.1-4.8); LYMPHOCYTES % (AUTO) 5.4 % (21-51); MEAN PLATELET VOLUME 8.9 FL (7.4-10.4); MONOCYTES # (AUTO) 1.7 X10'3 (0-0.9); NEUTROPHILS # (AUTO) 24.6 X10'3 (1.8-7.7); NEUTROPHILS % (AUTO) 88.2 % (42-75); PLATELET COUNT 431 X10'3 (140-440)
[2023-02-15 15:54] LABS: CLARITY,URINE SLIGHTLY CLOUDY (Clear)
[2023-02-15 15:55] LABS: BACTERIA,URINE 3+ /HPF (Neg); HYALINE CASTS 0-3 /LPF (NEGATIVE); MUCUS STRANDS FEW /LPF (Neg); RBC,URINE 0-2 /HPF (0-2); RENAL CELLS, URINE FEW /HPF; SQUAMOUS EPITHELIAL CELL,UR MODERATE /LPF (FEW); WBC,URINE 0-4 /HPF (0-4)
[2023-02-15 15:56] LABS: ABG BASE EXCESS -8.3 mmol/L (-2.0-2.0); ABG HCO3 19.1 mmol/L (22.0-26.0); ABG OXYGEN SATURATION 95.1 % (94-97); ABG PCO2 (T) 51.1 mmHg (32.0-45.0); ABG PH (T) 7.199 (7.350-7.450); ABG PO2 (T) 108.1 mmHg (75.0-100.0); ALLEN'S TEST POSITIVE; FHHb 4.9 % (0.0-5.0); FLOW 15 L/min; FMetHb 0.3 % (0.0-1.5); FO2Hb 94.8 % (94-97); PATIENT TEMPERATURE 38.6; TOTAL HEMOGLOBIN 10.1 G/dl (12.0-16.0)
[2023-02-15 15:58] LABS: URINE AMPHETAMINE SCREEN POSITIVE (Neg); URINE BARBITUATE SCREEN NEGATIVE (Neg); URINE BENZODIAZEPINES SCREEN NEGATIVE (Neg); URINE CANNABINOID SCREEN NEGATIVE (Neg); URINE COCAINE SCREEN NEGATIVE (Neg); URINE METHADONE SCREEN NEGATIVE (Neg); URINE OPIATE SCREEN NEGATIVE (Neg); URINE PHENCYCLIDINE SCREEN NEGATIVE (Neg)
[2023-02-15] MEDS ORDERED: piperacillin/tazo 3.375gm/50ml 50 ML IV SCH (16:00)
[2023-02-15 16:08] LABS: ALANINE AMINOTRANSFERASE 26 U/L (12-78); ALBUMIN 2.2 G/DL (3.4-5.0); ALBUMIN/GLOBULIN RATIO 0.5 (1.1-1.5); ALKALINE PHOSPHATASE 123 IU/L (46-116); ANION GAP 17 (8-16); ASPARTATE AMINO TRANSFERASE 68 U/L (10-37); BILIRUBIN,TOTAL 0.4 MG/DL (0.1-1.0); BLOOD UREA NITROGEN 26 MG/DL (7-18); BUN/CREATININE RATIO 18.1 (10.0-20.0); CALCIUM 8.5 MG/DL (8.5-10.1); CHLORIDE 102 MMOL/L (99-107); CREATININE 1.44 MG/DL (0.40-0.90); MAGNESIUM 1.6 MG/DL (1.5-2.4); POTASSIUM 4.7 MMOL/L (3.5-5.1); SODIUM 134 MMOL/L (135-145); TOTAL CARBON DIOXIDE 15.3 MMOL/L (24-32); TOTAL PROTEIN 6.7 G/DL (6.4-8.2); eCRCL 32 ML/MIN; eGFR 37 ML/MIN
[2023-02-15 16:09] LABS: HEMATOCRIT 33.7 % (35.0-45.0); HEMOGLOBIN 10.2 g/dl (12.0-16.0); MEAN CORPUSCULAR HEMOGLOBIN 24.2 PG (27.0-31.0); MEAN CORPUSCULAR HGB CONC 30.4 g/dL (33.0-36.5); MEAN CORPUSCULAR VOLUME 79.7 FL (78-98); RED BLOOD COUNT 4.23 X10'6 (4.20-5.60); RED CELL DISTRIBUTION WIDTH 17.3 % (11.5-14.5)
[2023-02-15 16:10] LABS: WHITE BLOOD COUNT 27.9 X10'3 (4.5-11.0)
[2023-02-15 16:12] LABS: GLUCOSE 581 MG/DL (70-104)
[2023-02-15] MEDS: propofol 1000mg/100ml bottle 100 ML IV SCH (16:15)
[2023-02-15] MEDS ORDERED: GABA300C PO (16:16)
--- NOTE | 2023-02-15 16:16 | NUR ---
Propofol and LR compatible per pharmacy.
[2023-02-15 16:18] LABS: ACETONE NEGATIVE (NEGATIVE)
[2023-02-15] MEDS ORDERED: INSU100I61 SQ (16:18)
[2023-02-15] MEDS ORDERED: APIX5TAB3 PO (16:18)
[2023-02-15] MEDS ORDERED: LANTUS SQ (16:18)
[2023-02-15] MEDS ORDERED: DULO30CA52 PO (16:18)
[2023-02-15] MEDS ORDERED: ROSU20TA73 PO (16:18)
[2023-02-15] MEDS ORDERED: ringers solution, lacted 1,000 ML IV ONE ×2 (16:20→18:05)
[2023-02-15 16:24] LABS: ANISOCYTOSIS 2+; PLATELET ESTIMATE NORMAL; TOTAL CELLS COUNTED 100
[2023-02-15 16:25] LABS: POLYCHROMASIA FEW; SPHEROCYTES FEW
[2023-02-15] MEDS ORDERED: ringers solution, lactated 500ml IV solution IV ONE (16:25)
[2023-02-15] MEDS ORDERED: PANT20TA18 PO (16:33)
[2023-02-15] MEDS ORDERED: ketamine 50 mg/ml 10ml vial ONE (16:33)
[2023-02-15] MEDS ORDERED: ketamine 10mg/ml 20ml inj vial IV ONE (16:35)
[2023-02-15] MEDS ORDERED: ketamine 10mg/ml 20ml inj 100 MG in normal saline 100ml IV soln 90 ML IV SCH (16:35)
[2023-02-15] MEDS ORDERED: NORepinephrine 8mg/ 250ml NS 250 ML IV SCH (16:55)
[2023-02-15] MEDS ORDERED: sodium bicarbonate (8.4%) 1 mEq/ml syringe ONE (16:57)
[2023-02-15] MEDS: ketamine 10mg/ml 100 MG in NS 100ml IVPB IV SCH ×2 (17:04→19:08)
[2023-02-15] MEDS: NORepinephrine 8mg/ 250ml NS 250 ML IV SCH (17:14)
[2023-02-15] MEDS ORDERED: insulin regular, human 10 units/0.1 ml syringe IV ONE (17:50)
[2023-02-15] MEDS ORDERED: OLOP2.5D16 EACHEYE ×2 (18:13→18:14)
[2023-02-15] MEDS ORDERED: ALBU18HF2 INH (18:15)
[2023-02-15] MEDS ORDERED: LORA10TA7 PO (18:15)
[2023-02-15] MEDS ORDERED: ASPI-611 PO (18:16)
[2023-02-15] MEDS ORDERED: FURO20TA4 PO (18:18)
[2023-02-15] MEDS ORDERED: CLOP75TA34 PO (18:18)
--- NOTE | 2023-02-15 18:40 | NUR ---
HOSPITALIST AT BEDSIDE
--- NOTE | 2023-02-15 18:55 | NUR ---
BLOOD GLUCOSE: 428, DR ROBLES IN ROOM TO OBTAIN RESPONSE.
--- NOTE | 2023-02-15 18:59 | NUR ---
LEFT HEEL WOUND, DOCUMENTED WITH PICTURE.
[2023-02-15] MEDS: sodium bicarbonate (8.4%) inj. 100 MEQ in dextrose 5%-water 1,000 ML IV SCH (19:07)
--- NOTE | 2023-02-15 19:08 | NUR ---
PT'S MOTHER CALLED TO CHECK ON PT. KHRIS:[phone]
--- NOTE | 2023-02-15 19:09 | NUR ---
SODIUM BICARB DRIP, AND KETAMINE DRIP CANCELLED BY DR. ROBLES.
[2023-02-15] MEDS ORDERED: acetaminophen 325mg tablet PO PRN ×2 (19:15)
[2023-02-15] MEDS ORDERED: magnesium hydroxide 30ml (MOM) UD suspension PO PRN (19:15)
[2023-02-15] MEDS ORDERED: ondansetron/PF 4mg/2ml inj IV PRN (19:15)
[2023-02-15] MEDS ORDERED: morphine 2 MG/ML inj. syringe IV PRN (19:15)
[2023-02-15] MEDS ORDERED: LidoCAINE 2% Topical Jelly 11mL syringe TOP ONE ×2 (19:15→19:35)
--- NOTE | 2023-02-15 19:15 | NUR ---
RT AT BEDSIDE FOR REPEAT ABG
--- NOTE | 2023-02-15 19:17 | NUR ---
PROVIDER NOTIFIED OF URNIE OUTPUT 100 ML SINCE BENITEZ INSERT, VERBALIZED UNDERSTANDING.
--- NOTE | 2023-02-15 19:33 | NUR ---
PT unable to come to CT, agt this time, will call
[2023-02-15] MEDS: normal saline 1000ml 1,000 ML IV SCH (19:52)
[2023-02-15] MEDS ORDERED: FENTANYL-0.9 % NACL/PF 100 ML IV PRN (20:00)
[2023-02-15 20:07] LABS: ABG BASE EXCESS -7.7 mmol/L (-2.0-2.0); ABG HCO3 16.4 mmol/L (22.0-26.0); ABG OXYGEN SATURATION 96.9 % (94-97); ABG PCO2 (T) 28.6 mmHg (32.0-45.0); ABG PH (T) 7.374 (7.350-7.450); ABG PO2 (T) 94.1 mmHg (75.0-100.0); FCOHb 0.3 % (0.0-3.9); FHHb 3.1 % (0.0-5.0); FMetHb 0.3 % (0.0-1.5); FO2Hb 96.3 % (94-97); PATIENT TEMPERATURE 36.6; PEEP 10 cm H2O; RESPIRATORY RATE 28 b/min; TIDAL VOLUME 375 mL; TOTAL HEMOGLOBIN 11.3 G/dl (12.0-16.0)
--- NOTE | 2023-02-15 21:02 | NUR ---
REPORT CALLED TO ICU, PATIENT TO CT THEN TO ICU WITH RN, RT, AND SURVIVAL EQUIPMENT REPAIRER.
[2023-02-15 23:05] LABS: BASOPHILS # (AUTO) 0.1 X10'3 (0-0.2); BASOPHILS % (AUTO) 0.4 % (0-1); EOSINOPHILS % (AUTO) 0 % (0-6); HEMATOCRIT 32.8 % (35.0-45.0); INR 1.2 INR; LYMPHOCYTES # (AUTO) 1.6 X10'3 (1.1-4.8); LYMPHOCYTES % (AUTO) 5.6 % (21-51); MEAN CORPUSCULAR HEMOGLOBIN 23.6 PG (27.0-31.0); MEAN CORPUSCULAR HGB CONC 30.6 g/dL (33.0-36.5); MEAN CORPUSCULAR VOLUME 77.3 FL (78-98); MEAN PLATELET VOLUME 8.7 FL (7.4-10.4); MONOCYTES # (AUTO) 1.4 X10'3 (0-0.9); MONOCYTES % (AUTO) 4.7 % (2-12); NEUTROPHILS # (AUTO) 26.4 X10'3 (1.8-7.7); NEUTROPHILS % (AUTO) 89.3 % (42-75); PLATELET COUNT 317 X10'3 (140-440); RED BLOOD COUNT 4.24 X10'6 (4.20-5.60)
[2023-02-15 23:11] LABS: ALANINE AMINOTRANSFERASE 165 U/L (12-78); ALBUMIN 1.8 G/DL (3.4-5.0); ALBUMIN/GLOBULIN RATIO 0.5 (1.1-1.5); ALKALINE PHOSPHATASE 100 IU/L (46-116); ANION GAP 11 (8-16); ASPARTATE AMINO TRANSFERASE 244 U/L (10-37); BILIRUBIN,TOTAL 0.5 MG/DL (0.1-1.0); BLOOD UREA NITROGEN 27 MG/DL (7-18); BUN/CREATININE RATIO 18.5 (10.0-20.0); CALCIUM 8.6 MG/DL (8.5-10.1); CHLORIDE 107 MMOL/L (99-107); CREATININE 1.46 MG/DL (0.40-0.90); MAGNESIUM 1.3 MG/DL (1.5-2.4); PHOSPHORUS 4.4 MG/DL (2.3-4.5); POTASSIUM 3.9 MMOL/L (3.5-5.1); SODIUM 142 MMOL/L (135-145); TOTAL CARBON DIOXIDE 23.7 MMOL/L (24-32); TOTAL PROTEIN 5.6 G/DL (6.4-8.2); eCRCL 31 ML/MIN; eGFR 37 ML/MIN
[2023-02-15 23:18] LABS: OXYGEN SATURATION (MIXED VEN) 65.4 % (60-80); PO2 MIXED VENOUS (TEMP COR) 36.3 mmHg (35-46)
[2023-02-15] MEDS: ipratropium/albuterol 3ml nebule NEB SCH (23:21)
[2023-02-15 23:22] LABS: WHITE BLOOD COUNT 29.6 X10'3 (4.5-11.0)
[2023-02-15 23:24] LABS: GLUCOSE 424 MG/DL (70-104)
[2023-02-15] MEDS ORDERED: DEXTROSE 15 GM of carb/4 tabs (each vial/BOTTLE has 4 tablets) PO PRN ×2 (23:25)
[2023-02-15] MEDS ORDERED: MESSAGE TO PHARMACY PO ONE (23:25)
[2023-02-15] MEDS ORDERED: glucagon, human recombinant 1mg kit SUBCUT PRN (23:25)
[2023-02-15] MEDS ORDERED: dextrose 50%-water 50ml dispensing syringe IV PRN ×2 (23:25)
[2023-02-16] VITALS (45 sets, daily range): BP systolic 87–142; BP diastolic 42–80; PULSE 98–129; RESP 14–33; O2SAT 75–100
[2023-02-16] MEDS: insulin Lispro (HumaLOG) vial - multi-dose SQ SCH ×4 (00:08→12:47)
[2023-02-16] MEDS: piperacillin/tazo 3.375gm/50ml 50 ML IV SCH ×3 (00:09→15:39)
[2023-02-16] MEDS: heparin, porcine 5000 units/ml vial SQ SCH ×2 (00:10→08:26)
[2023-02-16] MEDS: propofol 1000mg/100ml bottle 100 ML IV SCH (02:13)
[2023-02-16] MEDS: sodium bicarbonate (8.4%) inj. 100 MEQ in dextrose 5%-water 1,000 ML IV SCH ×2 (02:45→13:45)
[2023-02-16 03:43] LABS: ABG BASE EXCESS -1.2 mmol/L (-2.0-2.0); ABG HCO3 23.4 mmol/L (22.0-26.0); ABG OXYGEN SATURATION 98.8 % (94-97); ABG PCO2 (T) 37.2 mmHg (32.0-45.0); ABG PH (T) 7.412 (7.350-7.450); ABG PO2 (T) 144.2 mmHg (75.0-100.0); ALLEN'S TEST POSITIVE; FCOHb 0.5 % (0.0-3.9); FHHb 1.2 % (0.0-5.0); FMetHb 0.3 % (0.0-1.5); MODE VENT - prvc; PATIENT TEMPERATURE 36.3; PEEP 10 cm H2O; RESPIRATORY RATE 28 b/min; TIDAL VOLUME 375 mL; TOTAL HEMOGLOBIN 11.4 G/dl (12.0-16.0)
[2023-02-16] MEDS: ipratropium/albuterol 3ml nebule NEB SCH ×6 (03:45→23:06)
[2023-02-16 03:46] LABS: BASOPHILS % (AUTO) 0.2 % (0-1); EOSINOPHILS % (AUTO) 0 % (0-6); HEMATOCRIT 33.8 % (35.0-45.0); HEMOGLOBIN 10.4 g/dl (12.0-16.0); LYMPHOCYTES # (AUTO) 1.6 X10'3 (1.1-4.8); LYMPHOCYTES % (AUTO) 6.1 % (21-51); MEAN CORPUSCULAR HEMOGLOBIN 23.8 PG (27.0-31.0); MEAN CORPUSCULAR HGB CONC 30.8 g/dL (33.0-36.5); MEAN CORPUSCULAR VOLUME 77.3 FL (78-98); MEAN PLATELET VOLUME 8.5 FL (7.4-10.4); MONOCYTES # (AUTO) 1.2 X10'3 (0-0.9); MONOCYTES % (AUTO) 4.6 % (2-12); NEUTROPHILS # (AUTO) 23.2 X10'3 (1.8-7.7); NEUTROPHILS % (AUTO) 89.1 % (42-75); PLATELET COUNT 271 X10'3 (140-440); RED BLOOD COUNT 4.37 X10'6 (4.20-5.60); RED CELL DISTRIBUTION WIDTH 17.8 % (11.5-14.5)
[2023-02-16 03:51] LABS: ALANINE AMINOTRANSFERASE 195 U/L (12-78); ALBUMIN 1.9 G/DL (3.4-5.0); ALBUMIN/GLOBULIN RATIO 0.5 (1.1-1.5); ALKALINE PHOSPHATASE 94 IU/L (46-116); ANION GAP 10 (8-16); ASPARTATE AMINO TRANSFERASE 279 U/L (10-37); BILIRUBIN,TOTAL 0.5 MG/DL (0.1-1.0); BLOOD UREA NITROGEN 27 MG/DL (7-18); BUN/CREATININE RATIO 19.3 (10.0-20.0); CALCIUM 8.6 MG/DL (8.5-10.1); CHLORIDE 107 MMOL/L (99-107); GLUCOSE 383 MG/DL (70-104); MAGNESIUM 1.3 MG/DL (1.5-2.4); PHOSPHORUS 5.3 MG/DL (2.3-4.5); POTASSIUM 4.1 MMOL/L (3.5-5.1); SODIUM 143 MMOL/L (135-145); TOTAL CARBON DIOXIDE 26.2 MMOL/L (24-32); eCRCL 33 ML/MIN; eGFR 38 ML/MIN
[2023-02-16 03:55] LABS: WHITE BLOOD COUNT 26.1 X10'3 (4.5-11.0)
[2023-02-16] MEDS: vancomycin/NS 1 GM ADD-VANTAGE 250 ML IV SCH ×2 (04:14→15:39)
--- NOTE | 2023-02-16 06:30 | NUR ---
Patient in room ICU 2040. I have received report from tim and had the opportunity to ask questions and assume patient care.
--- NOTE | 2023-02-16 07:13 | NUR ---
Problems reprioritized. Patient report given, questions answered & plan of care reviewed with Waleska BANSAL.
--- NOTE | 2023-02-16 09:29 | NUR ---
Initial: Pt admit for sepsis, respiratory failure, metabolic acidosis, hyperglycemic hyperosmolar state, ALOC, and POP. Per EMR pt intubated and sedated with Propofol running at 5.418 mL/hr providing 143 kcal/day. Pt documented to have an NGT in place though no TF consult at this time. TF recommendations below for if expected prolonged intubation and to receive nutrition support. Per EMR last A1c 8.8% 08/17, recommend obtaining a new A1c this admit and providing DM education as appropriate following extubation. Noted pt with a low Raza of 11, pending wound care assessment for open wound to left foot. LBM 02/15 per EMR. Will continue to follow closely and make recommendations as appropriate. Recommendations: 1) IF TF and Propofol at 5.418 mL/hr (143 kcal/day), continuous Vital HP via NGT with 60 mL/hr goal rate to provide 1440 mL total volume/day, 1440 kcal, 126 g protein, and 1204 mL water. Begin at 20 mL/hr and advance by 20 mL Q8H as tolerated to goal rate 2) Monitor Propofol rate and need to adjust recs 3) IF TF, monitor serum Na for water flushes d/t hyponatremia on admit 4) IF TF, prealbumin q Saturday/ 5) Daily scaled weights 6) Routine bowel care 7) Obtain new A1c given hyperglycemia on admit with h/o T2DM, most recent A1c 8.8% 08/17 per [facility] Addendum: 02/16/23 at [address] Amended: Links added.
[2023-02-16] MEDS ORDERED: magnesium 4gm in 100ml NS 100 ML IV PRN (09:35)
[2023-02-16] MEDS ORDERED: magnesium 2GM in 50ml NS 50 ML IV PRN (09:35)
[2023-02-16] MEDS: NORepinephrine 8mg/ 250ml NS 250 ML IV SCH ×2 (11:59→22:32)
--- NOTE | 2023-02-16 12:45 | NUR ---
TF consult: Per verbal d/w RN Propofol has been off since 0900 this morning. TF recs have been adjusted accordingly and placed in EMR. Will continue to follow closely. Recommendations: 1) Given Propofol held, continuous Vital HP via NGT with 60 mL/hr goal rate to provide 1440 mL total volume/day, 1440 kcal, 126 g protein, and 1204 mL water 2) Monitor Propofol rate and need to adjust recs 3) Additional 50 mL water flush Q4H; monitor serum Na 4) Prealbumin q Saturday/ 5) Daily scaled weights 6) Routine bowel care 7) Obtain new A1c given hyperglycemia on admit with h/o T2DM, most recent A1c 8.8% 08/17 per EMR Addendum: 02/16/23 at [address] Amended: Links added.
[2023-02-16] MEDS: normal saline 1000ml 1,000 ML IV SCH ×2 (13:00→21:55)
--- NOTE | 2023-02-16 13:24 | NUR ---
sedation off since 849- moves mouth with oral care, no gag, no corneals, pupils sluggish, update to mom and . mag replacing
[2023-02-16] MEDS ORDERED: acetaminophen 325mg/10.15ml oral unit dose solution NG PRN (14:42)
[2023-02-16] MEDS ORDERED: DEXTROSE 15 GM of carb/4 tabs (each vial/BOTTLE has 4 tablets) NG PRN ×2 (14:43→14:44)
--- NOTE | 2023-02-16 18:00 | NUR ---
Got report for Waleska, all questions answered.
[2023-02-16] MEDS: apixaban 5mg tablet PO SCH (19:56)
[2023-02-16] MEDS: mineral oil/petrolatum ophthal oint EACHEYE SCH (19:56)
[2023-02-16] MEDS: insulin regular, human U-100 3ml vial - multi-dose SQ SCH (20:24)
[2023-02-16] MEDS: insulin glargine (Lantus) pen - multi-dose SQ SCH (20:25)
--- NOTE | 2023-02-16 23:54 | NUR ---
Unable to complete nursing admission given patient's condition and no family present.
[2023-02-17] VITALS (40 sets, daily range): BP systolic 95–203; BP diastolic 48–156; PULSE 106–128; RESP 14–40; O2SAT 92–99
[2023-02-17] MEDS: piperacillin/tazo 3.375gm/50ml 50 ML IV SCH ×3 (00:30→16:57)
[2023-02-17] MEDS: acetaminophen 325mg/10.15ml oral unit dose solution NG PRN ×2 (00:31→18:40)
[2023-02-17] MEDS: mineral oil/petrolatum ophthal oint EACHEYE SCH ×4 (02:07→19:57)
[2023-02-17] MEDS: insulin regular, human U-100 3ml vial - multi-dose SQ SCH ×5 (02:28→20:09)
[2023-02-17] MEDS ORDERED: VANCOMYCIN LEVEL IV ONE (02:30)
[2023-02-17 02:39] LABS: BASOPHILS % (AUTO) 0.3 % (0-1); EOSINOPHILS % (AUTO) 0 % (0-6); HEMATOCRIT 26.9 % (35.0-45.0); HEMOGLOBIN 8.4 g/dl (12.0-16.0); LYMPHOCYTES # (AUTO) 1.4 X10'3 (1.1-4.8); LYMPHOCYTES % (AUTO) 8.1 % (21-51); MEAN CORPUSCULAR HEMOGLOBIN 23.8 PG (27.0-31.0); MEAN CORPUSCULAR HGB CONC 31.2 g/dL (33.0-36.5); MEAN CORPUSCULAR VOLUME 76.3 FL (78-98); MEAN PLATELET VOLUME 8.8 FL (7.4-10.4); MONOCYTES # (AUTO) 0.8 X10'3 (0-0.9); MONOCYTES % (AUTO) 4.5 % (2-12); NEUTROPHILS # (AUTO) 15.2 X10'3 (1.8-7.7); NEUTROPHILS % (AUTO) 87.1 % (42-75); PLATELET COUNT 254 X10'3 (140-440); RED BLOOD COUNT 3.52 X10'6 (4.20-5.60); WHITE BLOOD COUNT 17.5 X10'3 (4.5-11.0)
[2023-02-17 02:52] LABS: ALANINE AMINOTRANSFERASE 165 U/L (12-78); ALBUMIN 1.6 G/DL (3.4-5.0); ALBUMIN/GLOBULIN RATIO 0.4 (1.1-1.5); ALKALINE PHOSPHATASE 81 IU/L (46-116); ANION GAP 7 (8-16); ASPARTATE AMINO TRANSFERASE 168 U/L (10-37); BILIRUBIN,TOTAL 0.5 MG/DL (0.1-1.0); BLOOD UREA NITROGEN 33 MG/DL (7-18); BUN/CREATININE RATIO 30.3 (10.0-20.0); CALCIUM 8.2 MG/DL (8.5-10.1); CHLORIDE 110 MMOL/L (99-107); CREATININE 1.09 MG/DL (0.40-0.90); GLUCOSE 180 MG/DL (70-104); MAGNESIUM 2.5 MG/DL (1.5-2.4); PHOSPHORUS 3.8 MG/DL (2.3-4.5); POTASSIUM 3.2 MMOL/L (3.5-5.1); SODIUM 144 MMOL/L (135-145); TOTAL CARBON DIOXIDE 26.6 MMOL/L (24-32); TOTAL PROTEIN 5.5 G/DL (6.4-8.2); eCRCL 42 ML/MIN; eGFR 51 ML/MIN
[2023-02-17 02:53] LABS: VANCOMYCIN,TROUGH 26.7 ug/mL (10.0-20.0)
[2023-02-17] MEDS: vancomycin/NS 1 GM ADD-VANTAGE 250 ML IV SCH (03:00)
[2023-02-17 03:14] LABS: HEMOGLOBIN A1C 8.4 % (4.5-6.2)
--- NOTE | 2023-02-17 03:17 | NUR ---
notified Dr. Grey of seizure like activity. Eyes deviated upwards, pupils dilated (reactive), jaw having nonpurposeful repetitive movement. He would like propofol restarted for now.
[2023-02-17] MEDS: propofol 1000mg/100ml bottle 100 ML IV SCH (03:26)
[2023-02-17] MEDS: VANCOMYCIN 750MG IV in NS 250 ML IV SCH ×2 (03:35→14:19)
[2023-02-17] MEDS: ipratropium/albuterol 3ml nebule NEB SCH ×6 (03:37→23:27)
[2023-02-17] MEDS ORDERED: potassium Cl 40MEQ/1/2NS 520ml 520 ML IV PRN (03:40)
[2023-02-17] MEDS ORDERED: potassium Cl 40MEQ/270ML bag 270 ML IV PRN (03:40)
[2023-02-17 04:14] LABS: ABG BASE EXCESS 3.1 mmol/L (-2.0-2.0); ABG HCO3 26.3 mmol/L (22.0-26.0); ABG OXYGEN SATURATION 98.5 % (94-97); ABG PCO2 (T) 34.4 mmHg (32.0-45.0); ABG PH (T) 7.502 (7.350-7.450); ABG PO2 (T) 117.1 mmHg (75.0-100.0); FCOHb 0.6 % (0.0-3.9); FHHb 1.5 % (0.0-5.0); FMetHb 0.3 % (0.0-1.5); FO2Hb 97.6 % (94-97); MODE CMV PRVC IT 0.7; PEEP 8 cm H2O; RESPIRATORY RATE 14 b/min; TIDAL VOLUME 375 mL; TOTAL HEMOGLOBIN 8.5 G/dl (12.0-16.0)
[2023-02-17] MEDS: apixaban 5mg tablet PO SCH ×2 (08:20→19:57)
[2023-02-17] MEDS: normal saline 1000ml 1,000 ML IV SCH (11:15)
--- NOTE | 2023-02-17 11:40 | NUR ---
Diabetes consult: Pt presents with an A1c of 8.4% this admit which is down from 8.8% on 08/17/22 which pt was seen by RON for diabetes nutrition education on 08/19 on prior admit. Pt may benefit from diabetes nutrition education reinforcement/discussion prior to discharge and after extubation. Will monitor medical appropriateness to provide DM education. Addendum: 02/17/23 at [address] Amended: Links added.
[2023-02-17] MEDS: NORepinephrine 8mg/ 250ml NS 250 ML IV SCH (13:18)
--- NOTE | 2023-02-17 18:00 | NUR ---
got report from Louann, all questions answered.
[2023-02-17] MEDS ORDERED: rocuronium 10mg/ml inj IV ONE (18:30)
--- NOTE | 2023-02-17 18:30 | NUR ---
Called Dr. Calhoun to let him know the issues revolving the read of the EEG (apparently it's an IT issue on [place]'s part). Also notified him of excessive muscle artifact and inability to even read the EEG anyhow, he agreed to give x1 paralytic to see her underlying EEG.
[2023-02-17] MEDS: insulin glargine (Lantus) pen - multi-dose SQ SCH (20:10)
[2023-02-17] MEDS ORDERED: niCARDipine-NS 40mg/200ml IVPB 200 ML IV SCH (22:15)
--- NOTE | 2023-02-17 22:19 | NUR ---
Notified Dr. Arevalo of hypertension. He rounded on pt. Added cardene. Wants to keep sedation off.
[2023-02-18] VITALS (47 sets, daily range): BP systolic 76–161; BP diastolic 23–109; PULSE 117–130; RESP 22–42; O2SAT 84–99
[2023-02-18] MEDS: piperacillin/tazo 3.375gm/50ml 50 ML IV SCH ×3 (00:05→16:09)
[2023-02-18] MEDS: normal saline 1000ml 1,000 ML IV SCH ×2 (00:35→08:21)
[2023-02-18] MEDS: mineral oil/petrolatum ophthal oint EACHEYE SCH ×4 (02:00→20:37)
[2023-02-18] MEDS: insulin regular, human U-100 3ml vial - multi-dose SQ SCH ×3 (02:05→14:48)
[2023-02-18] MEDS: ipratropium/albuterol 3ml nebule NEB SCH ×6 (02:29→23:21)
[2023-02-18 02:34] LABS: ALANINE AMINOTRANSFERASE 282 U/L (12-78); ALBUMIN 1.5 G/DL (3.4-5.0); ALBUMIN/GLOBULIN RATIO 0.3 (1.1-1.5); ALKALINE PHOSPHATASE 184 IU/L (46-116); ANION GAP 8 (8-16); ASPARTATE AMINO TRANSFERASE 175 U/L (10-37); BILIRUBIN,TOTAL 0.3 MG/DL (0.1-1.0); BLOOD UREA NITROGEN 44 MG/DL (7-18); BUN/CREATININE RATIO 43.1 (10.0-20.0); CHLORIDE 110 MMOL/L (99-107); CREATININE 1.02 MG/DL (0.40-0.90); GLUCOSE 187 MG/DL (70-104); MAGNESIUM 2.1 MG/DL (1.5-2.4); PHOSPHORUS 2.7 MG/DL (2.3-4.5); POTASSIUM 3.8 MMOL/L (3.5-5.1); PREALBUMIN 8.4 MG/DL (19-36); SODIUM 144 MMOL/L (135-145); TOTAL CARBON DIOXIDE 25.7 MMOL/L (24-32); TOTAL PROTEIN 5.8 G/DL (6.4-8.2); eCRCL 45 ML/MIN; eGFR 55 ML/MIN
[2023-02-18 02:38] LABS: BASOPHILS % (AUTO) 0.2 % (0-1); EOSINOPHILS % (AUTO) 0.1 % (0-6); HEMATOCRIT 28.2 % (35.0-45.0); HEMOGLOBIN 8.7 g/dl (12.0-16.0); LYMPHOCYTES # (AUTO) 1.7 X10'3 (1.1-4.8); LYMPHOCYTES % (AUTO) 7.7 % (21-51); MEAN CORPUSCULAR HEMOGLOBIN 23.4 PG (27.0-31.0); MEAN CORPUSCULAR HGB CONC 30.9 g/dL (33.0-36.5); MEAN CORPUSCULAR VOLUME 75.9 FL (78-98); MONOCYTES % (AUTO) 4.5 % (2-12); NEUTROPHILS # (AUTO) 18.7 X10'3 (1.8-7.7); NEUTROPHILS % (AUTO) 87.5 % (42-75); PLATELET COUNT 318 X10'3 (140-440); RED BLOOD COUNT 3.71 X10'6 (4.20-5.60); RED CELL DISTRIBUTION WIDTH 18.8 % (11.5-14.5); WHITE BLOOD COUNT 21.4 X10'3 (4.5-11.0)
[2023-02-18 02:48] LABS: ABG HCO3 22.7 mmol/L (22.0-26.0); ABG OXYGEN SATURATION 95.3 % (94-97); ABG PCO2 (T) 26.5 mmHg (32.0-45.0); ABG PH (T) 7.551 (7.350-7.450); ABG PO2 (T) 69.8 mmHg (75.0-100.0); ALLEN'S TEST POSITIVE; FCOHb 0.6 % (0.0-3.9); FHHb 4.7 % (0.0-5.0); FMetHb 0.3 % (0.0-1.5); FO2Hb 94.4 % (94-97); MODE VENT - AC; PATIENT TEMPERATURE 36.8; PEEP 5 cm H2O; RESPIRATORY RATE 16 b/min; TIDAL VOLUME 375 mL; TOTAL HEMOGLOBIN 9.8 G/dl (12.0-16.0)
[2023-02-18] MEDS: VANCOMYCIN 750MG IV in NS 250 ML IV SCH ×2 (03:44→15:10)
[2023-02-18] MEDS: NORepinephrine 8mg/ 250ml NS 250 ML IV SCH ×2 (04:04→18:50)
[2023-02-18] MEDS: apixaban 5mg tablet PO SCH ×2 (08:21→20:37)
--- NOTE | 2023-02-18 12:17 | NUR ---
Patient in room ICU 2040. I have received report from Louann BANSAL and had the opportunity to ask questions and assume patient care.
[2023-02-18] MEDS ORDERED: VANCOMYCIN LEVEL IV ONE (14:30)
--- NOTE | 2023-02-18 15:50 | NUR ---
PRESSURE ULCER EDUCATION: DEFINITION: A pressure ulcer is an area of skin that breaks down when you stay in one position too long. The constant pressure against the skin reduces the blood flow to that area and the affected tissue dies. CAUSES: "Being bedridden or in a wheelchair "Fragile skin "Having a chronic condition, such as diabetes or vascular disease "Inability to move certain parts of your body without assistance "Older age "Incontinence of urine or stool SYMPTOMS: "A reddened area that DOES NOT turn white when pressed on - this can be the beginning of a pressure ulcer "A blister, deep sore or a crater - these can be advanced pressure ulcers FIRST AID: "Relieve the pressure on this area "Keep the area clean and dry "Call your primary doctor if you see any of the above symptoms "DO NOT massage the area "DO NOT use a donut shaped or ring shaped pillow- these actually interfere with the blood flow and cause complications PREVENTION: "Check for pressure ulcers everyday "Change position at least every two hours to relieve pressure "Use items that help relieve pressure- pillows, sheepskin, foam padding, and powders. "Keep skin clean and dry "Eat healthy well balanced meals "Exercise daily IF YOU SEE ANY OF THESE SYMPTOMS WHILE IN THE HOSPITAL - TELL YOUR NURSE IMMEDIATELY. IF YOU SEE ANY OF THESE SYMPTOMS WHILE AT HOME OR HAVE ANY QUESTIONS OR CONCERNS ABOUT PRESSURE ULCERS - CALL YOUR PRIMARY DOCTOR IMMEDIATELY. Addendum: 02/18/23 at 1554 by Lindy Orellana RN Amended: Links added.
--- NOTE | 2023-02-18 18:15 | NUR ---
Patient in room ICU 2040. I have received report from Michelle BANSAL and had the opportunity to ask questions and assume patient care.
--- NOTE | 2023-02-18 18:29 | NUR ---
Problems reprioritized. Patient report given, questions answered & plan of care reviewed with John BANSAL.
[2023-02-18] MEDS ORDERED: dexmedetomidin/NS 400mcg/100ml 100 ML IV SCH (19:25)
[2023-02-18] MEDS: insulin glargine (Lantus) pen - multi-dose SQ SCH (20:46)
--- NOTE | 2023-02-18 21:53 | NUR ---
MD Arevalo called to notify that patient is consistently breathing in the 40s. New order received.
[2023-02-18] MEDS: dexmedetomidin/NS 400mcg/100ml 100 ML IV SCH (22:32)
[2023-02-18] MEDS: dextrose 5%-lactated ringers 1,000 ML IV SCH (22:42)
[2023-02-19] VITALS (34 sets, daily range): BP systolic 80–129; BP diastolic 33–78; PULSE 96–139; RESP 25–70; O2SAT 80–100
[2023-02-19] MEDS: piperacillin/tazo 3.375gm/50ml 50 ML IV SCH ×3 (00:37→16:51)
--- NOTE | 2023-02-19 02:10 | NUR ---
assumed care of pt.
[2023-02-19] MEDS: mineral oil/petrolatum ophthal oint EACHEYE SCH ×3 (02:11→13:46)
[2023-02-19 02:30] LABS: BASOPHILS # (AUTO) 0.1 X10'3 (0-0.2); BASOPHILS % (AUTO) 0.6 % (0-1); EOSINOPHILS % (AUTO) 0.1 % (0-6); HEMATOCRIT 28.2 % (35.0-45.0); HEMOGLOBIN 8.6 g/dl (12.0-16.0); LYMPHOCYTES # (AUTO) 2.7 X10'3 (1.1-4.8); LYMPHOCYTES % (AUTO) 11.2 % (21-51); MEAN CORPUSCULAR HEMOGLOBIN 23.2 PG (27.0-31.0); MEAN CORPUSCULAR HGB CONC 30.3 g/dL (33.0-36.5); MEAN CORPUSCULAR VOLUME 76.4 FL (78-98); MEAN PLATELET VOLUME 9.1 FL (7.4-10.4); MONOCYTES # (AUTO) 1.2 X10'3 (0-0.9); MONOCYTES % (AUTO) 4.8 % (2-12); NEUTROPHILS # (AUTO) 20.1 X10'3 (1.8-7.7); NEUTROPHILS % (AUTO) 83.3 % (42-75); PLATELET COUNT 355 X10'3 (140-440); RED BLOOD COUNT 3.69 X10'6 (4.20-5.60); RED CELL DISTRIBUTION WIDTH 18.8 % (11.5-14.5); WHITE BLOOD COUNT 24.1 X10'3 (4.5-11.0)
[2023-02-19 02:54] LABS: ALANINE AMINOTRANSFERASE 264 U/L (12-78); ALBUMIN 1.5 G/DL (3.4-5.0); ALBUMIN/GLOBULIN RATIO 0.3 (1.1-1.5); ALKALINE PHOSPHATASE 248 IU/L (46-116); ANION GAP 8 (8-16); ASPARTATE AMINO TRANSFERASE 160 U/L (10-37); BILIRUBIN,TOTAL 0.5 MG/DL (0.1-1.0); BLOOD UREA NITROGEN 61 MG/DL (7-18); BUN/CREATININE RATIO 49.6 (10.0-20.0); CALCIUM 7.9 MG/DL (8.5-10.1); CHLORIDE 110 MMOL/L (99-107); CREATININE 1.23 MG/DL (0.40-0.90); GLUCOSE 94 MG/DL (70-104); PHOSPHORUS 3.8 MG/DL (2.3-4.5); POTASSIUM 4.5 MMOL/L (3.5-5.1); SODIUM 143 MMOL/L (135-145); TOTAL CARBON DIOXIDE 24.6 MMOL/L (24-32); TOTAL PROTEIN 6.1 G/DL (6.4-8.2); eCRCL 37 ML/MIN; eGFR 45 ML/MIN
[2023-02-19] MEDS: ipratropium/albuterol 3ml nebule NEB SCH ×4 (03:14→14:54)
[2023-02-19 03:32] LABS: ABG BASE EXCESS -1.7 mmol/L (-2.0-2.0); ABG HCO3 20.5 mmol/L (22.0-26.0); ABG OXYGEN SATURATION 97.6 % (94-97); ABG PCO2 (T) 25.5 mmHg (32.0-45.0); ABG PH (T) 7.519 (7.350-7.450); ABG PO2 (T) 91.2 mmHg (75.0-100.0); ALLEN'S TEST Modified; FCOHb 0.5 % (0.0-3.9); FHHb 2.4 % (0.0-5.0); FMetHb 0.3 % (0.0-1.5); FO2Hb 96.8 % (94-97); MODE PRVC; PATIENT TEMPERATURE 36.2; PEEP 5 cm H2O; RESPIRATORY RATE 14 b/min; TIDAL VOLUME 375 mL; TOTAL HEMOGLOBIN 9.9 G/dl (12.0-16.0)
[2023-02-19] MEDS: vancomycin inj 500 MG in normal saline 100ml IV soln 100 ML IV SCH ×2 (03:44→15:40)
[2023-02-19] MEDS: NORepinephrine 8mg/ 250ml NS 250 ML IV SCH (03:45)
[2023-02-19 04:03] LABS: ANISOCYTOSIS 2+; HYPOCHROMASIA 1+; MICROCYTOSIS 1+; PLATELET ESTIMATE NORMAL; POLYCHROMASIA 1+; SPHEROCYTES FEW
[2023-02-19] MEDS: dexmedetomidin/NS 400mcg/100ml 100 ML IV SCH (05:24)
[2023-02-19] MEDS: normal saline 1000ml 1,000 ML IV SCH ×2 (06:34→16:35)
--- NOTE | 2023-02-19 06:44 | NUR ---
Patient in room ICU 2040. I have received report from Ashley BANSAL and had the opportunity to ask questions and assume patient care.
[2023-02-19] MEDS: apixaban 5mg tablet PO SCH (07:24)
[2023-02-19] MEDS ORDERED: pantoprazole 40MG/NS 100ML BAG 100 ML IV SCH (08:00)
[2023-02-19] MEDS: morphine 4 MG/ML inj SYRINge IV PRN ×2 (08:44→13:44)
[2023-02-19] MEDS: insulin regular, human U-100 3ml vial - multi-dose SQ SCH ×2 (08:54→14:34)
[2023-02-19] MEDS: dextrose 5%-lactated ringers 1,000 ML IV SCH (11:52)
--- NOTE | 2023-02-19 12:03 | NUR ---
TF consult: Per RN patient's diet order was accidentally cancelled however RN updated EMR appropriately. Pt remains intubated and tolerating TF at goal rate with GRV WNL. Noted pt receiving D5LR at 75 mL/hr d/t hypoglycemia providing 306 kcal/day. Per RN pt with right AKA, estimated nutrient needs and TF goal rate should be adjusted however pt possibly pending transition to comfort care per RN. Will adjust recommendations as appropriate based on patient's POC. Pt seen by wound care, per note pt with a DM ulcer to left heel presenting as soft black eschar. LBM 02/15 per EMR. Pt only with PRN bowel care available however not documented to be given. Recommend initiating routine bowel care if pt does not go comfort care. Will continue to follow closely and make recommendations as appropriate. Recommendations: 1) Continuous Vital HP via NGT with 60 mL/hr goal rate to provide 1440 mL total volume/day, 1440 kcal, 126 g protein, and 1204 mL water 2) Monitor code status and need to adjust estimated nutrient needs and TF recs given right AKA and D5LR at 75 mL/hr providing 306 kcal/day 3) Additional 50 mL water flush Q4H; monitor serum Na 4) Prealbumin q Saturday/ 5) Daily scaled weights 6) Routine bowel care 7) Diabetes nutrition therapy education as appropriate following extubation given A1c 8.4% Addendum: 02/19/23 at [address] Amended: Links added.
[2023-02-19 12:31] LABS: ABG BASE EXCESS -3.3 mmol/L (-2.0-2.0); ABG HCO3 19.1 mmol/L (22.0-26.0); ABG OXYGEN SATURATION 99.2 % (94-97); ABG PCO2 (T) 26.6 mmHg (32.0-45.0); ABG PH (T) 7.477 (7.350-7.450); ABG PO2 (T) 174.9 mmHg (75.0-100.0); ALLEN'S TEST POSITIVE; FCOHb 0.2 % (0.0-3.9); FHHb 0.8 % (0.0-5.0); FMetHb 0.3 % (0.0-1.5); FO2Hb 98.7 % (94-97); MODE VENT - AC; PATIENT TEMPERATURE 37.5; PEEP 10 cm H2O; RESPIRATORY RATE 14 b/min; TIDAL VOLUME 375 mL; TOTAL HEMOGLOBIN 9.8 G/dl (12.0-16.0)
--- NOTE | 2023-02-19 15:08 | NUR ---
Dr. Rm informed of pt breathing rate of 47, no new orders at this time.
[2023-02-19] MEDS ORDERED: morphine 10mg/0.5ml (conc. morphine) oral syringe PO PRN (17:15)
[2023-02-19] MEDS ORDERED: morphine 10mg/ml inj. IV PRN (17:15)
[2023-02-19] MEDS ORDERED: LORazepam 2 mg/ml vial IV PRN (17:15)
--- NOTE | 2023-02-19 17:19 | NUR ---
Discussion with , father, mother, 2 brothers at bedside had with Dr. Rm. Family would like to proceed with comfort care. MD ordered to extubate to comfort care.
--- NOTE | 2023-02-19 18:22 | NUR ---
RN IS TO DOCUMENT YES TO ALL APPLICABLE AREAS Pronouncement of : 1. Time Physician Notified: 2. Date of : 02/19/23 3. Time of : 1751 4. DNR/Withdraw life support documented:Y 5. Monitor strip has been placed on chart:Y 6. Assessment process is of one-minute duration and includes following criteria: a) Patient is unresponsive to all stimuli: Y b) Pupils fixed and non-reactive:Y c) Auscultation of precordium reveals absence of heart tones:Y d) Auscultation of lungs reveals absence of breath sounds:Y e) Absence of blood pressure / all vital signs:Y f) QRS complexes are not present on monitor / EKG strip:Y g) Pacer spikes without capture:N/A 4. Comments: Dr. Rm notified of time of . Family aware. Donor network called
[2023-02-20] MEDS ORDERED: VANCOMYCIN LEVEL IV ONE (14:30)
== END 2023-02-19 20:19 | DRG 720 ==
LOC: ER 14:47 → ED HOLD 19:28 → EDBEDREQ 20:19 → ICU 2S 20:22
PROVIDERS: ADMIT Internal Medicine Critical Care Medicine; ATTEND Internal Medicine Critical Care Medicine
PROC: 5A1955Z Respiratory Ventilation, Greater than 96 Consecutive Hours (ICD-10-PCS; principal; 2023-02-15)
PROC: 5A12012 Performance of Cardiac Output, Single, Manual (ICD-10-PCS; 2023-02-15)
PROC: 0BH17EZ Insertion of Endotracheal Airway into Trachea, Via Natural or Artificial Opening (ICD-10-PCS; 2023-02-15)
PROC: 02HV33Z Insertion of Infusion Device into Superior Vena Cava, Percutaneous Approach (ICD-10-PCS; 2023-02-15)
PROC: 4A00X4Z Measurement of Central Nervous Electrical Activity, External Approach (ICD-10-PCS; 2023-02-17)
DX: A41.4 Sepsis due to anaerobes (principal); N17.0 Acute kidney failure with tubular necrosis; I46.9 Cardiac arrest, cause unspecified; J96.01 Acute respiratory failure with hypoxia; R65.21 Severe sepsis with septic shock; E11.00 Type 2 diabetes mellitus with hyperosmolarity without nonketotic hyperglycemic-hyperosmolar coma (NKHHC); J18.9 Pneumonia, unspecified organism; G92.9 Unspecified toxic encephalopathy; E87.4 Mixed disorder of acid-base balance; G93.1 Anoxic brain damage, not elsewhere classified; I11.0 Hypertensive heart disease with heart failure; G25.3 Myoclonus; E11.65 Type 2 diabetes mellitus with hyperglycemia; K21.9 Gastro-esophageal reflux disease without esophagitis; R74.01 Elevation of levels of liver transaminase levels; G89.29 Other chronic pain; M19.90 Unspecified osteoarthritis, unspecified site; N39.0 Urinary tract infection, site not specified; E87.6 Hypokalemia; J45.909 Unspecified asthma, uncomplicated; F32.A Depression, unspecified; G47.30 Sleep apnea, unspecified; D50.9 Iron deficiency anemia, unspecified; E11.649 Type 2 diabetes mellitus with hypoglycemia without coma; I50.23 Acute on chronic systolic (congestive) heart failure; F15.10 Other stimulant abuse, uncomplicated; Z86.73 Personal history of transient ischemic attack (TIA), and cerebral infarction without residual deficits; Z90.710 Acquired absence of both cervix and uterus; Z98.51 Tubal ligation status; Z80.3 Family history of malignant neoplasm of breast; Z79.899 Other long term (current) drug therapy; Z88.8 Allergy status to other drugs, medicaments and biological substances; Z88.1 Allergy status to other antibiotic agents; Z88.2 Allergy status to sulfonamides; Z59.00 Homelessness unspecified; Z89.611 Acquired absence of right leg above knee; Z51.5 Encounter for palliative care
CPT/HCPCS: 36415; 36600; 70450; 71045; 80053; 80202; 80305; 81001; 82009; 82803; 82810; 82948; 83036; 83605; 83735; 84100; 84134; 84145; 85007; 85008; 85018; 85025; 85610; 87040; 87070; 87077; 87081; 87088; 87186; 93005; 93306; 94002; 94003; 94640; 94760; 94799; 95720; 99285; A4333; A6212; A6213; A6250; A6258; A6449; A7015; C1751; C1758; C9113; G0378; J0153; J0171; J1644; J1815; J2060; J2270; J2274; J2543; J2704; J3010; J3370; J3475; J3480; J3490; J7030; J7040; J7042; J7050; J7120; J7121